=== PATIENT | female | born 1990 ===

== ENCOUNTER 2020-07-23 13:00 | Outpatient (RCR) | payer MEDICAID, SELFPAY | END 2020-10-03 08:57 | disposition other institution (70) | LOC: HO.PT 13:00 | PROVIDERS: PCP Family Medicine; Visit Provider Family Medicine | DX: M25.561 Pain in right knee (principal) | CPT/HCPCS: 97110; 97162; 97530 ==

== ENCOUNTER → 2021-03-10 11:38 | Outpatient (BNVA) | payer MEDICAID, SELFPAY | PROVIDERS: Visit Provider Student in an Organized Health Care Education/Training Program | DX: M79.7 Fibromyalgia (principal) | CPT/HCPCS: 99212 ==

== ENCOUNTER 2022-08-17 10:57 | Outpatient (REF) | payer MEDICAID, SELFPAY ==
--- NOTE | ~2022-08-17 | MM_ITS ---
EXAMINATION: MM DIAGNOSTIC DIGITAL BREAST TOMOSYNTHESIS, BILATERAL US DIAGNOSTIC ULTRASOUND BREAST (AXILLA), BILATERAL CLINICAL INFORMATION: 32-year-old with recent swelling/tenderness right axilla, subsequently resolved. No palpable mass or discharge. Chronic history fibromyalgia under medical care. No prior breast imaging. The lifetime risk of breast cancer based on the Tyrer-Cuzick Model is 15%. COMPARISON: None (current study represents initial baseline exam). TECHNIQUE: Digital breast tomosynthesis is performed in both the craniocaudal and mediolateral oblique views along with computer-aided detection (CAD). Synthesized 2D images are generated from the tomosynthesis. Additional right MLO view is provided. Ultrasound bilateral axilla are and posterior upper outer breasts is performed using grayscale imaging and color Doppler without and with harmonics. FINDINGS: There are scattered areas of fibroglandular density (ACR BI-RADS breast composition Category b). There are no significant masses, abnormal calcifications, or other abnormalities. The axillary nodes appear symmetric. There is no skin thickening or coarsening of the Juan's ligaments. Ultrasound left axilla demonstrates scattered nodes with normal obsaldo architecture and osbaldo color flow pattern. Cortical thickness is borderline prominent, up to 4 mm thickness. No cystic nodes. No solid mass or architectural abnormality. No skin thickening or edema tracking in soft tissue planes. Ultrasound right axilla demonstrates scattered nodes with normal osbaldo architecture and osbaldo color flow pattern. Cortical thickness is borderline prominent, up to 6 mm thickness. No cystic nodes. No solid mass or architectural abnormality. No skin thickening or edema tracking in soft tissue planes. Results are discussed with the patient at time of visit. Unremarkable bilateral breasts. There is mild bilateral osbaldo hyperplasia, likely related to the patient's chronic fibromyalgia, under medical therapy. No focal suspicious node wanting tissue sampling at this time. MM/MM tomosynthesis diagnostic BI IMPRESSION: 1. No mammographic evidence of malignancy or inflammatory changes. 2. Mild bilateral axillary osbaldo hyperplasia, likely related to patient's chronic fibromyalgia, under medical therapy. No focal suspicious node. ASSESSMENT: BI-RADS 2: Benign RECOMMENDATION: 1. Patient should be managed and followed up as needed based on the clinical impression. If clinically indicated, the axillary nodes could be reassessed with ultrasound to confirm stability. 2. Otherwise, routine annual screening mammography, beginning age 40, or earlier as clinical risk factors warrant. This patient's information was entered into a reminder system with a target due date for their next mammogram.
== END 2022-08-17 10:58 | disposition home or self-care (01) ==
LOC: HO.MAMMO 10:57
PROVIDERS: PCP Family Medicine; Visit Provider Registered Nurse
DX: R22.31 Localized swelling, mass and lump, right upper limb (principal)
CPT/HCPCS: 76642; 77062; 77066

== ENCOUNTER 2023-03-04 15:50 | Outpatient (REF) | payer MEDICAID, SELFPAY ==
--- NOTE | ~2023-03-04 | XR_ITS ---
EXAMINATION: XR ANKLE, LEFT CLINICAL INFORMATION: Fall down stairs with pain COMPARISON: None available. TECHNIQUE: AP, lateral, and mortise views of the left ankle. FINDINGS: No fracture. Alignment is anatomic. No erosions. Joint spaces are maintained. Soft tissues are prominent laterally. XR/XR ankle LT min 3V IMPRESSION: No fracture seen on the left
--- NOTE | ~2023-03-04 | XR_ITS ---
EXAMINATION: XR ANKLE, RIGHT CLINICAL INFORMATION: Fell down the stairs with an pain COMPARISON: None available. TECHNIQUE: AP, lateral, and mortise views of the right ankle. FINDINGS: No fracture. Alignment is anatomic. No erosions. Joint spaces are maintained. Soft tissues are prominent laterally XR/XR ankle RT min 3V IMPRESSION: No fracture seen on the right
== END 2023-03-04 15:51 | disposition home or self-care (01) ==
LOC: HO.HHCX 15:50
PROVIDERS: Visit Provider Internal Medicine
DX: M25.571 Pain in right ankle and joints of right foot (principal); M25.572 Pain in left ankle and joints of left foot
CPT/HCPCS: 73610

== ENCOUNTER 2023-04-05 11:01 | Outpatient (AMB) | payer MEDICAID, SELFPAY ==
--- NOTE | 2023-04-05 11:03 | A.OFFVIS_ITS ---
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 Patient reports she fell on 03/04/23. She states that her right ankle is worse than the left. Pain is worse when walking and using the stairs per patient. She states that her pain is on the lateral aspect of the right ankle and the pain radiates up to her mid calf. Also her left ankle her pain is on the lateral aspect of the left ankle and it moves to the top of her foot. 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 The patient reports in 02/2023 she fell down some stairs. The right ankle is worse then the left ankle. She states the pain starts on the lateral aspect of the right ankle and radiates up to her mid calf. She states the left ankle pain radiates to her left foot. She claims to have an increase in pain with ambulating and with the use of stairs. She states she is unable to get her foot into shoes at this time. She states her mother is going to take her to get supportive sneakers. [facility] Social History (Updated 03/10/21 @ 11:53 by Antione Ho LPN) Alcohol intake: never Patient Tobacco Use Status: Never used Tobacco e-Cigarette/Vaping Use: Never Used Review of Systems Const All systems reviewed & are unremarkable except as noted in HPI and below Physical Exam Const General: cooperative and no acute distress Orientation/consciousness: patient oriented x3 Resp Effort & Inspection: normal respiratory effort and able to speak in complete sentences Cardio Peripheral pulses: Peripheral pulses 2+ throughout Skin General skin exam: no rashes or lesions noted Neuro General: patient oriented x3 Extrem Other: Bilateral ankles: Tenderness to palpation over the peroneal tendons. Difficulty with eversion due to pain. No tenderness over the ATFL or deltoid. Sensation intact. Pedal pulse intact. NVI. Assessment & Plan Assessment & Plan (1) Right ankle sprain: Code(s): S93.401A - Sprain of unspecified ligament of right ankle, initial encounter Qualifiers: Encounter type: initial encounter Involved ligament of ankle: unspecified ligament Qualified Code(s): S93.401A - Sprain of unspecified ligament of right ankle, initial encounter (2) Left ankle sprain: Code(s): S93.402A - Sprain of unspecified ligament of left ankle, initial encounter Qualifiers: Encounter type: initial encounter Involved ligament of ankle: unspecified ligament Qualified Code(s): S93.402A - Sprain of unspecified ligament of left ankle, initial encounter Plan is a 33-year-old female who presents in the office today, as a new patient, for an evaluation of bilateral ankle pain. The patient reports in 02/2023 she fell down some stairs. The right ankle is worse then the left ankle. She states the pain starts on the lateral aspect of the right ankle and radiates up to her mid calf. She states the left ankle pain radiates to her left foot. She claims to have an increase in pain with ambulating and with the use of stairs. She states she is unable to get her foot into shoes at this time. She states her mother is going to take her to get supportive sneakers. The patient will be referred to physical therapy to work on ROM and strengthening of the bilateral ankles. I discussed the patient wearing supportive sneakers. I also discussed the role of ankle bracing, however due to the irritation and edema we have agreed to not use this at this time. I will se nd in a prescription for Dicolfenac 75 mg PO BID PRN to the pharmacy. I educated her to rest, ice, and elevate as much as possible off the bilateral ankles. Follow up will be in 6 weeks, or sooner if needed. X-rays of the bilateral ankles, obtained on 03/04/2023, revealed: Right: No fracture seen on the right Left: No fracture seen on the left Orders: Orders PT Evaluation and Treatment Today S93.401A - Sprain of unspecified ligament of right ankle, initial encounter, S93.402A - Sprain of unspecified ligament of left ankle, initial encounter Medications: New diclofenac sodium 75 mg PO BID PRN 60 tabs 0RF pain 30 days Patient Instructions: Scribed for Erin Mckeon PA-C by Isabelle Morgan medical detailist, on 04/05/2023 at 11:11 am, EST. Coding Level of Care Code New Pt Level 3 (33774) Diagnoses Sprain of right ankle, unspecified ligament, initial encounter S93.401A Encounter type: initial encounter Involved ligament of ankle: unspecified ligament Sprain of left ankle, unspecified ligament, initial encounter S93.402A Encounter type: initial encounter Involved ligament of ankle: unspecified ligament
== END 2023-04-05 11:48 | disposition home or self-care (01) ==
PROVIDERS: PCP Family Medicine; Visit Provider Physician Assistant
DX: S93.401A Sprain of unspecified ligament of right ankle, initial encounter (principal); S93.402A Sprain of unspecified ligament of left ankle, initial encounter
CPT/HCPCS: 99203

== ENCOUNTER → 2023-04-05 11:01 | Outpatient (BNVA) | payer MEDICAID, SELFPAY | PROVIDERS: PCP Family Medicine; Visit Provider Physician Assistant | DX: S93.401A Sprain of unspecified ligament of right ankle, initial encounter (principal); S93.402A Sprain of unspecified ligament of left ankle, initial encounter | CPT/HCPCS: 99212 ==

== ENCOUNTER 2023-05-25 09:00 | Outpatient (RCR) | payer MEDICAID, SELFPAY ==
--- NOTE | 2023-04-26 11:33 | MHC.PT.EP ---
[facility] [place] [facility] [place] [facility] [place] Office [address] Luis Enrique Espinosa [address] [phone] F: [phone] F: [phone] F: [phone] F: [phone] Physical Therapy Plan of Care Date of Evaluation: 04/26/23 Date of Surgery: Diagnosis: BILATERAL ANKLE PAIN S/P FALL 03/04/23 Assessment: 33 YO FEMALE REF TO PT WITH Rt> Lt ANKLE SPRAINS S/P FALLING DOWN 4 STAIRS ON 03/04/23. HER X-RAYS WERE (-). THE Pt NOTES A H/O FIBROMYALGIA. SHE RESIDES W HER CHILDREN IN A 3RD FLOOR APT AND CURRENTLY LEADS A SEDENTARY LIFESTYLE DUE TO HER ANKLE PAIN. OBJECTIVELY: (+) GENU VALGUS W PRONATION, DECR LUMBOPELVIC/ PROX LEs STRENGTH, DECR ROM [place] ANKLE DF/PF, AND TTP Lt MED ANKLE AND Rt MED AND LAT ANKLE. FUNCTIONALLY, SHE NOTES SHE IS LIMITED IN STANDING, IN/OOB BED OR TUB, SHE HAS BEEN UNABLE TO WALK HER CHILDREN TO SCHOOL, SXS WHILE REPOSITIONING IN BED, AND LIMITED STAIR NAVIGATION DUE TO [place] ANKLE PAIN. THE Pt WOLD BENEFIT FROM PT TO ADDRESS THE ABOVE FINDINGS, INCR HER ACTIVITY [place]/ FUNCT MOB, AND DEV A HEP/SX MGMT TECHN. Frequency and Duration: The patient will be seen 2 x WK x 5 WKS Short Term Goals: *DECR [place] ANKLE PAIN TO 3-4/10 *IMPROVE AROM [place] ANKLES *INITIATE HEP, FLEXIB, STAB, STRENGTH Applied Behavior Science Specialist Goals: *Pt INDEP AND COMPLIANT W FITNESS ROUTINE/ WALKING/ HEP *Pt RESUME REG ADLs EVIDENT W IMPROVED LEFI SCORE ( 13/80 AT EVAL) *Pt'S STRENGTH IN [place] LEs IMPROVED BY 1/2 - 1 GRADE Treatment Plan: Modalities to reduce pain, spasms and effusion. Manual therapy to restore motion and function. Therapeutic exercise to improve strength and flexibility. Neuromuscular re-education for posture and balance. Therapeutic activities to return to functional activities of daily living. Electronically signed by: ISABEL CORONA,PT Please sign and return to therapist. Thank you for your referral.
== END 2023-05-30 10:05 | disposition home or self-care (01) ==
LOC: HO.PT 09:00
PROVIDERS: Absent Provider Family Medicine; PCP Family Medicine; Visit Provider Physician Assistant
DX: S93.402A Sprain of unspecified ligament of left ankle, initial encounter (principal); S93.401A Sprain of unspecified ligament of right ankle, initial encounter
CPT/HCPCS: 97110; 97140; 97162; 97530

== ENCOUNTER 2023-11-29 12:16 | Outpatient (REF) | payer MEDICAID, SELFPAY ==
--- NOTE | ~2023-11-29 | XR_ITS ---
EXAMINATION: XR KNEE, LEFT CLINICAL INFORMATION: Knee pain Patient states bilateral knee pain in both knees give out COMPARISON: Same-day right knee TECHNIQUE: Four views of the left knee. FINDINGS: No fracture or joint effusion. Alignment is anatomic. Joint spaces are maintained. No abnormal soft tissue calcification. XR/XR knee LT 3V IMPRESSION: No bony abnormality.
--- NOTE | ~2023-11-29 | XR_ITS ---
EXAMINATION: XR KNEE, RIGHT CLINICAL INFORMATION: Knee pain Patient states bilateral knee pain and both knees give out COMPARISON: Same-day left knee TECHNIQUE: 3 views of the right knee. FINDINGS: No fracture or joint effusion. Alignment is anatomic. Joint spaces are maintained. No abnormal soft tissue calcification. XR/XR knee RT 3V IMPRESSION: No bony abnormality.
== END 2023-11-29 12:17 | disposition home or self-care (01) ==
LOC: HO.HHCX 12:16
PROVIDERS: Visit Provider General Practice
DX: M25.561 Pain in right knee (principal); M25.562 Pain in left knee; G89.29 Other chronic pain
CPT/HCPCS: 73562

== ENCOUNTER 2023-11-29 14:30 | Outpatient (REF) | payer MEDICAID, SELFPAY ==
[2023-11-29 16:44] LABS: Estimated Average Glucose 114 mg/dL; Hemoglobin A1c % 5.6 % (<6.0)
[2023-11-29 17:12] LABS: Erythrocyte Sedimentation Rate 23 MM/HR (0-20)
[2023-11-29 17:17] LABS: Alanine Aminotransferase 17 U/L (0-31); Albumin Level 4.3 g/dL (3.5-5.0); Alkaline Phosphatase 82 U/L (39-117); Anion Gap 14 (12-20); Aspartate Amino Transferase 15 U/L (5-31); Bilirubin Total 0.6 mg/dL (0.0-1.0); Blood Urea Nitrogen 15 mg/dL (9-16); C Reactive Protein 0.58 mg/dL (< or = 0.50); Calcium 9.1 mg/dL (8.4-10.2); Carbon Dioxide 25 mmol/L (22-29); Chloride 104 mmol/L (96-108); Cholesterol 162 mg/dL (<200); Estimated Glomerular Filt Rate > 60; Glucose Random 81 mg/dL (60-115); HDL Cholesterol 44 mg/dL (>40); LDL Cholesterol Calculated 72 mg/dL (<100); Potassium 4.2 mmol/L (3.3-5.1); Sodium 139 mmol/L (135-145); Total Protein 8.4 g/dL (6.5-8.0); Triglycerides 234 mg/dL (<150)
== END 2023-11-29 14:31 | disposition home or self-care (01) ==
LOC: HO.HHCL 14:30
PROVIDERS: Visit Provider General Practice
DX: I10 Essential (primary) hypertension (principal); M25.561 Pain in right knee; M25.562 Pain in left knee; G89.29 Other chronic pain
CPT/HCPCS: 36415; 73562; 80053; 80061; 83036; 85652; 86140

== ENCOUNTER 2023-12-07 17:53 | Emergency (ER) | payer MEDICAID, SELFPAY ==
[2023-12-07 18:58] VITALS: BP 112/78; PULSE 92; RESP 16; TEMP 36.9; O2SAT 97; BMI 47.2
--- NOTE | 2023-12-07 19:09 | ED.GENADULT ---
HPI - General Adult General Chief complaint: Extremity Injury, Lower Stated complaint: fell and felt snap in lower calf Time Seen by Provider: 12/07/23 19:08 Source: patient Mode of arrival: ambulatory Limitations: no limitations History of Present Illness HPI narrative: Patient is a 33-year-old female with history of fibromyalgia presenting to the emergency department with complaint of right calf pain which began while walking downstairs. States that she felt a pop sensation at the same time as the onset of her pain. States that she is having difficulty getting in and out of her apartment as she lives on the 3rd floor and there is no elevator access. Denies any numbness or tingling. Denies any chest pain or shortness of breath. Not on OCPs. MD complaint: calf pain Onset (ago): day(s) Location: right and lower extremity Radiation: non-radiation Severity: severe Quality: aching and other (cramping) Pain Consistency: colicky Relieving factors: rest Exacerbating factors: movement Associated symptoms: denies other symptoms Treatments prior to arrival: none Related Data Home Medications ?Medication ?Instructions ?Recorded ?Confirmed acetaminophen 500 mg capsule 500 mg PO Q6H PRN 03/10/21 03/10/21 atorvastatin 20 mg tablet 20 mg PO DAILY 03/10/21 03/10/21 cholecalciferol (vitamin D3) 25 25 mcg PO DAILY 03/10/21 03/10/21 mcg (1,000 unit) capsule cyclobenzaprine 10 mg tablet 10 mg PO BEDTIME 03/10/21 03/10/21 metformin 500 mg tablet 500 mg PO DAILY 03/10/21 03/10/21 omeprazole 20 mg capsule,delayed 20 mg PO DAILY 03/10/21 03/10/21 release sertraline 100 mg tablet (Zoloft) 100 mg PO DAILY 03/10/21 03/10/21 sertraline 50 mg tablet (Zoloft) 50 mg PO DAILY 03/10/21 03/10/21 trazodone 50 mg tablet 50 mg PO BEDTIME 03/10/21 03/10/21 Previous Rx's ?Medication ?Instructions ?Recorded gabapentin 300 mg capsule 300 mg PO BEDTIME #30 caps 03/10/21 diclofenac sodium 75 mg 75 mg PO BID PRN for pain #60 tabs 11/24/23 tablet,delayed release ibuprofen 600 mg tablet 600 mg PO Q8H PRN pain #20 tabs 12/07/23 lidocaine 5 % topical patch 1 patch topical DAILY #15 ea 12/07/23 Allergies Allergy/AdvReac Type Severity Reaction Status Date / Time No Known Allergies Allergy Verified 12/07/23 18:59 [No Known Allergies*] Review of Systems Review of Systems: As per HPI. Yes all other systems are reviewed and are negative Constitutional: Constitutional: Reports as per HPI [facility] Social History Social History (Updated 03/10/21 @ 11:53 by Antione Ho LPN) Alcohol intake: never Patient Tobacco Use Status: Never used Tobacco e-Cigarette/Vaping Use: Never Used Advance Directives: No Advance Directives Information Provided: No Physical Exam ED Vital Signs: Vital Signs - 24 hr 12/07/23 18:58 Temperature 98.5 F Pulse Rate 92 Respiratory Rate 16 Blood Pressure 112/78 Pulse Oximetry 97 Oxygen Delivery Method Room Air BMI result Body Mass Index 47.2 Vital signs have been reviewed and appear to be correct. Blood pressure normal. Heart rate normal. Respiratory rate normal. Temperature normal. Oxygen saturation normal. Const General: cooperative, healthy appearing and no acute distress Orientation/consciousness: oriented to person, oriented to place, oriented to time and patient oriented x3 Limitations: no limitations HENNJ Head: Yes normocephalic and Yes atraumatic Ears: external ears normal General nose exam: Normal external nose present Face and sinus: Yes face symmetric Mouth: oropharynx normal and moist mucous membranes Throat: Yes uvula midline Eyes Pupils: Equal, round and reactive pupils present Neck Neck: Yes normal visual inspection and Yes supple Resp Effort & Inspection: normal respiratory effort and able to speak in complete sentences Auscultation: clear to auscultation bilaterally Cardio Rate: regular rate Rhythm: regular rhythm Heart sounds: S1 normal heart sound present and S2 normal heart sound present GI Palpation (GI): Soft to palpation and nontender Auscultation: normoactive bowel sounds General: Yes no CVA tenderness Back/Spine/Pelvis Back: no CVA tenderness Skin General skin exam: elasticity normal and turgor normal Neuro General: oriented to person, oriented to place, oriented to time, patient oriented x3, moves all extremities, no focal motor deficits and CN's II-XI intact bilaterally Cranial nerves: Yes Equal, round and reactive pupils present Cognition (Neuro): normal cognition Extrem General: Yes full ROM, Yes capillary refill normal, Yes normal exam except as noted, Yes no pedal edema and Yes no calf tenderness Right lower extremity: lower leg (neg Collado, increased pain with plantar and dorsiflexion) Details: normal to inspection, tenderness Location: of the posterior calf and no edema; no erythema, no localized swelling and no ecchymosis and foot Details: vascular exam Details: dorsalis pedis pulse present and posterior tibial pulse present Psych Mental Status: mental status grossly normal Affect: normal affect Thought process: Normal thought process present Medical Decision Making Medical Decision Making MDM Narrative: Patient is a 33-year-old female with history of fibromyalgia presenting to the emergency department with complaint of right calf pain which began while walking downstairs. On exam patient is awake, A+Ox3, VS WNL, afebrile, normal neurological exam without focal deficits, physical exam findings as above. Given reported symptoms and physical exam findings, initial differential includes gastrocnemius strain, achilles tendonitis. Do not suspect DVT. Given the patient is able to bear weight, do not suspect complete tear. Patient provided with Kendrick wrap in the emergency department and advised to keep leg elevated while at rest, alternate Tylenol and ibuprofen. Will send prescription for topical lidocaine patches. Will refer patient to orthopedics for any ongoing symptoms. Return precautions discussed. Patient verbalized understanding of and agreement with plan. Differential Diagnosis Differential Diagnoses: The differential diagnosis associated with the presentation includes As per MDM. External Record Review External record reviewed: Inpatient record, Office record and Outpatient record Prescription Management I considered prescription management with: Pain Medication Discharge Plan Discharge Clinical Impression: Gastrocnemius strain Qualifiers: Encounter type: initial encounter Laterality: right Qualified Code(s): S86.111A - Strain of other muscle(s) and tendon(s) of posterior muscle group at lower leg level, right leg, initial encounter Patient Disposition: Home, Self-Care Instructions: Muscle Strain (DC), How to Use an Elastic Bandage (ED), R.I.C.E. Treatment (ED) Additional Instructions: You have been evaluated in the emergency department today for right lower leg pain. Your evaluation did not find evidence of medical conditions requiring emergent intervention at this time. We have provided an KENDRICK wrap for you to use while your leg heals. Please rest, ice, and elevate your leg, and resume normal activities as tolerated. We recommend you take 600mg ibuprofen every 6 hours or 650mg Tylenol every 6 hours as needed for pain. If needed you can alternate these medications and take 1 medication every 3 hours. For instance at noon take ibuprofen, then at 3:00 p.m. take Tylenol, then at 6:00 p.m. take ibuprofen. Please schedule an appointment for follow-up with your primary care provider this week. Return to the emergency department if you experience worsening pain, numbness, tingling, change of color in your leg or foot, or any other concerning symptoms. Prescriptions: New ibuprofen 600 mg tablet 600 mg PO Q8H PRN (Reason: pain) Qty: 20 0RF lidocaine 5 % adhesive patch,medicated 1 patch topical DAILY Qty: 15 0RF Rx Instructions: leave on most painful area for up to 12 hrs No Action diclofenac sodium 75 mg tablet,delayed release (DR/EC) 75 mg PO BID PRN (Reason: for pain) Qty: 60 0RF trazodone 50 mg tablet 50 mg PO BEDTIME cyclobenzaprine 10 mg tablet 10 mg PO BEDTIME sertraline [Zoloft] 50 mg tablet 50 mg PO DAILY sertraline [Zoloft] 100 mg tablet 100 mg PO DAILY acetaminophen 500 mg capsule 500 mg PO Q6H PRN metformin 500 mg tablet 500 mg PO DAILY cholecalciferol (vitamin D3) 25 mcg (1,000 unit) capsule 25 mcg PO DAILY atorvastatin 20 mg tablet 20 mg PO DAILY omeprazole 20 mg capsule,delayed release(DR/EC) 20 mg PO DAILY gabapentin 300 mg capsule 300 mg PO BEDTIME Qty: 30 3RF Referrals: [facility] [Provider Group] Print Language: Croatian
--- NOTE | 2023-12-07 19:25 | PC.NURSE ---
zana wrap applied per provider request
[2023-12-07 19:48] VITALS: BP 112/78; PULSE 92; RESP 16; TEMP 36.9; O2SAT 97
== END 2023-12-07 19:49 | disposition home or self-care (01) ==
PROVIDERS: Emergency Provider Internal Medicine; PCP Family Medicine
DX: S86.911A Strain of unspecified muscle(s) and tendon(s) at lower leg level, right leg, initial encounter (principal); X58.XXXA Exposure to other specified factors, initial encounter; Y93.9 Activity, unspecified; Y92.9 Unspecified place or not applicable; Y99.9 Unspecified external cause status; M79.661 Pain in right lower leg
CPT/HCPCS: 99282; 99283

== ENCOUNTER 2024-01-05 09:08 | Outpatient (REF) | payer MEDICAID, SELFPAY ==
--- NOTE | ~2024-01-05 | XR_ITS ---
EXAMINATION: XR ANKLE, RIGHT CLINICAL INFORMATION: Ankle pain COMPARISON: Right ankle radiographs 03/04/2023. TECHNIQUE: AP, lateral, and mortise views of the right ankle. FINDINGS: No evidence of acute fracture or malalignment. Ankle mortise is congruent. Talar dome is intact. Redemonstrated mild proliferative change at the medial and lateral malleoli, may be sequela of remote ligamentous injury.. No tibiotalar joint effusion. Soft tissues are unremarkable. XR/XR ankle RT min 3V IMPRESSION: No evidence of acute fracture or malalignment of the right ankle.
== END 2024-01-05 09:09 | disposition home or self-care (01) ==
LOC: HO.HOSX 09:08
PROVIDERS: Visit Provider Physician Assistant
DX: S86.111A Strain of other muscle(s) and tendon(s) of posterior muscle group at lower leg level, right leg, initial encounter (principal)
CPT/HCPCS: 73610; 99212

== ENCOUNTER 2024-01-05 11:37 | Outpatient (AMB) | payer MEDICAID, SELFPAY ==
--- NOTE | 2024-01-05 11:46 | MHC.OFFVIS ---
Intake Visit Reasons: N/prob rt achilles tendon partial tear Intake Note: Carole is a 33 year old female who presents today for a evaluation of her right calf pain, DOI 12/07/23. She states having a history of fibromyalgia. She presented to the emergency department with pain of right calf pain which began when she downstairs. States that she feels a little bit better. Still having pain behind her calf. Allergies No Known Allergies [No Known Allergies*] Allergy (Verified 01/05/24 11:55) HPI HPI N/prob rt achilles tendon partial tear: Details: 33-year-old female who presents in the office today for an evaluation of right calf pain. The patient presented to the ED on 12/07/2023 with a complaint of a pop sensation accompanied by pain that began when ambulating downstairs. She was placed in an COLLEEN wrap and advised to elevate the right lower extremity. She was prescribed Lidocaine patches topical daily and ibuprofen 600 mg PO Q8H PRN. Patient lives on the third floor with no elevator access. While in the office today the patient confirms presenting to the ED with pain in the right calf which began as she was descending stairs. She states she feels a little better but is still having pain behind the calf. Patient has a significant medical history of fibromyalgia. [facility] Social History (Updated 01/05/24 @ 11:56 by Garrett Ovalles) Alcohol intake: never Patient Tobacco Use Status: Never used Tobacco e-Cigarette/Vaping Use: Never Used Use of substances other than those prescribed or required for medical reasons: No Review of Systems Const All systems reviewed & are unremarkable except as noted in HPI and below Physical Exam Const General: cooperative and no acute distress Orientation/consciousness: patient oriented x3 Resp Effort & Inspection: normal respiratory effort and able to speak in complete sentences Cardio Peripheral pulses: Peripheral pulses 2+ throughout Skin General skin exam: no rashes or lesions noted Neuro General: patient oriented x3 Extrem Other: Right lower extremity: Able to dorsiflex and plantarflex. Mild tenderness with calf squeeze. Achilles tendon is intact and functioning appropriately. NVI. Assessment & Plan Assessment & Plan (1) Strain of right gastrocnemius muscle: Code(s): S86.111A - Strain of other muscle(s) and tendon(s) of posterior muscle group at lower leg level, right leg, initial encounter Category: Medical Plan is a 3-year-old female who presents in the office today for an evaluation of right calf pain. The patient presented to the ED on 12/07/2023 with a complaint of a pop sensation accompanied by pain that began when ambulating downstairs. She was placed in an COLLEEN wrap and advised to elevate the right lower extremity. She was prescribed Lidocaine patches topical daily and ibuprofen 600 mg PO Q8H PRN. Patient lives on the third floor with no elevator access. While in the office today the patient confirms presenting to the ED with pain in the right calf which began as she was descending stairs. She states she feels a little better but is still having pain behind the calf. Patient has a significant medical history of fibromyalgia. I offered the patient physical therapy, but she would like to hold off at this time. I instructed her that if she should continue to have pain difficulties with ROM or develop any stiffness, she should contact the office. At that time an order for formal physical therapy will be placed. I expressed that she should not wait longer than four weeks before making the call. Follow-up will be PRN, or sooner if needed. X-rays of the right ankle which were obtained while in the office today and were reviewed by me, Erin Mckeon PA-C, revealed no acute fractures or dislocations. Orders: Orders XR ankle RT min 3V Today M25.579 - Pain in unspecified ankle and joints of unspecified foot Patient Instructions: Scribed by Isabelle Morgan medical office representative, for Erin Mckeon PA-C on 01/05/2024 at 12:11 pm, EST. Coding Level of Care Code Est Pt Level 3 (82406) Diagnoses Strain of right gastrocnemius muscle S86.111A
== END 2024-01-05 12:11 | disposition home or self-care (01) ==
PROVIDERS: PCP Family Medicine; Visit Provider Physician Assistant
DX: S86.111A Strain of other muscle(s) and tendon(s) of posterior muscle group at lower leg level, right leg, initial encounter (principal)
CPT/HCPCS: 99213

== ENCOUNTER 2024-02-02 09:44 | Outpatient (REF) | payer MEDICAID, SELFPAY ==
[2024-02-02 11:57] LABS: Estimated Average Glucose 120 mg/dL; Hemoglobin A1c % 5.8 % (<6.0)
[2024-02-02 12:09] LABS: Rheumatoid Factor < 13.0 IU/mL (<15.0)
[2024-02-02 12:15] LABS: Alanine Aminotransferase 20 U/L (0-31); Albumin Level 4.3 g/dL (3.5-5.0); Alkaline Phosphatase 88 U/L (39-117); Anion Gap 13 (12-20); Aspartate Amino Transferase 15 U/L (5-31); Bilirubin Direct 0.2 mg/dL (0.0-0.5); Blood Urea Nitrogen 14 mg/dL (9-16); C Reactive Protein 0.42 mg/dL (< or = 0.50); Calcium 9.2 mg/dL (8.4-10.2); Carbon Dioxide 24 mmol/L (22-29); Chloride 105 mmol/L (96-108); Cholesterol 150 mg/dL (<200); Estimated Glomerular Filt Rate 55; Glucose Random 169 mg/dL (60-115); HDL Cholesterol 38 mg/dL (>40); LDL Cholesterol Calculated 56 mg/dL (<100); Potassium 3.9 mmol/L (3.3-5.1); Sodium 138 mmol/L (135-145); Total Protein 7.9 g/dL (6.5-8.0); Triglycerides 280 mg/dL (<150)
[2024-02-02 12:26] LABS: Erythrocyte Sedimentation Rate 18 MM/HR (0-20)
[2024-02-03 13:33] LABS: Anti DNA DS Antibody 7 IU/mL
[2024-02-09 14:33] LABS: Anti Nuclear Antibody Screen NEGATIVE (NEGATIVE)
== END 2024-02-02 09:45 | disposition home or self-care (01) ==
LOC: HO.HHCL 09:44
PROVIDERS: Visit Provider Family Medicine
DX: M79.10 Myalgia, unspecified site (principal); E11.9 Type 2 diabetes mellitus without complications
CPT/HCPCS: 36415; 80048; 80061; 80076; 83036; 85652; 86038; 86140; 86225; 86431

== ENCOUNTER 2024-02-02 11:41 | Outpatient (REF) | payer MEDICAID, SELFPAY ==
[2024-02-02 14:37] LABS: Microalbum/Creatinine Ratio Ur 51.2 ug/mg cr (<30)
== END 2024-02-02 11:42 | disposition home or self-care (01) ==
LOC: HO.HHCL 11:41
PROVIDERS: Visit Provider Family Medicine
DX: M79.10 Myalgia, unspecified site (principal)
CPT/HCPCS: 36415; 80048; 80061; 80076; 82043; 82570; 83036; 85652; 86038; 86140; 86225; 86431

== ENCOUNTER 2024-04-09 13:31 | Outpatient (REF) | payer MEDICAID, SELFPAY ==
[2024-04-09 16:25] LABS: C Reactive Protein 1.04 mg/dL (< or = 0.50)
[2024-04-09 16:42] LABS: Creatinine Urine 191.67 mg/dL; Vitamin D 25-OH Total 34.9 ng/mL (>30)
[2024-04-09 17:22] LABS: Erythrocyte Sedimentation Rate 26 MM/HR (0-20)
[2024-04-10 20:42] LABS: Anti DNA DS Antibody 9 IU/mL
== END 2024-04-09 13:32 | disposition home or self-care (01) ==
LOC: HO.HHCL 13:31
PROVIDERS: Visit Provider Family Medicine
DX: R76.8 Other specified abnormal immunological findings in serum (principal); R80.9 Proteinuria, unspecified; E55.9 Vitamin D deficiency, unspecified
CPT/HCPCS: 36415; 82043; 82306; 82570; 85652; 86140; 86225

== ENCOUNTER 2024-04-20 17:14 | Outpatient (REF) | payer MEDICAID, SELFPAY ==
[2024-04-24 03:54] LABS: C. trachomatis RNA TMA NOT DETECTED (NOT DETECTED); N. gonorrhoeae RNA TMA NOT DETECTED (NOT DETECTED); Trichomonas (NAAT) NOT DETECTED (NOT DETECTED)
[2024-05-02 13:24] LABS: HPV mRNA E6/E7 Not Detected; Thin Prep Source Cervix
[2024-05-02 13:25] LABS: Previous Biopsy Date NONE GIVEN
== END 2024-04-20 17:15 | disposition home or self-care (01) ==
LOC: HO.HHCLNP 17:14
PROVIDERS: Visit Provider Family Medicine
DX: Z12.4 Encounter for screening for malignant neoplasm of cervix (principal)
CPT/HCPCS: 36415; 87491; 87591; 87624; 87661; 88175

== ENCOUNTER 2024-06-08 08:02 | Outpatient (AMB) | payer MEDICAID, SELFPAY ==
[2024-06-08 08:07] VITALS: BP 114/70; PULSE 96; O2SAT 99; BMI 46.6
--- NOTE | 2024-06-08 08:07 | MHC.OFFVIS ---
Vital Signs 06/08/24 08:07 Height 5 ft 2 in Weight 255 lb 1.197 oz BMI 46.6 BP 114/70 Blood Pressure Location Lt brachial Position Sitting Pulse 96 Pulse Source Pulse Oximeter Pulse Oximetry (%) 99 Oxygen Delivery Method Room Air Intake Visit Reasons: Abnormal lab/cm Intake Note: Patient presents today for abnormal lab work, she was referred by her PCP, Celina Mirza Allergies No Known Allergies [No Known Allergies*] Allergy (Verified 06/08/24 08:08) HPI Comments Details: Patient is a 34-year-old female with diabetes, hypertension, hyperlipidemia, obesity on Ozempic who is here to reestablish care for management of fibromyalgia Patient was initially seen back in 2020 for evaluation of polyarthralgias in the setting of a positive double-stranded DNA. Exam at that time was consistent with fibromyalgia. Patient notes that she has actually been diagnosed with fibromyalgia since 2007. Since then she has been maintained on a cocktail of pregabalin and duloxetine. However over the years she has noticed worsening of her pain to the point where she feels like she can not take care of her 3 young children. And she is here today for management. Denies rashes, photosensitivity, alopecia, oral/nasal ulcers, sicca symptoms, lymphadenopathy, chest pain/shortness of breath, inflammatory type joint pain, foamy urine, lower extremity edema, muscle weakness, Raynaud's Also denies history of seizure, CVA, psychosis, history of kidney problems, history of cytopenias, history of VTE including PE or DVTs OB History: No history of recurrent miscarriages [facility] Social History (Updated 01/05/24 @ 11:56 by Garrett Ovalles) Alcohol intake: never Patient Tobacco Use Status: Never used Tobacco e-Cigarette/Vaping Use: Never Used Review of Systems Const Details: Review of Systems Constitutional: Denies fever, chills, weight loss ENT: Denies vision changes, eye pain or eye redness, dental caries, dry mouth GI: Denies nausea, vomiting, diarrhea, abdominal pain, change in BM Pulm: Denies SOB, ARANA, hemoptysis, wheezing Cards: Denies chest pain, palpitations Skin: Denies Raynaud's, rash, nail changes, photosensitivity, MARKETING SERVICES MANAGER: Denies headaches, weakness, paresthesias, recurrent falls MSK: as per HPI All other systems reviewed and are unremarkable except noted above Physical Exam Vital Signs: Last Vital Signs Pulse 96 06/08/24 08:07 BP 114/70 06/08/24 08:07 Pulse Ox 99 06/08/24 08:07 Oxygen Delivery Method Room Air 06/08/24 08:07 BMI result Body Mass Index 46.6 Physical Examination CONSTITUITIONAL Patient alert and cooperative. Well appearing and in no apparent painful distress HEENT Conjunctiva and sclera clear. ?Pupils equal round and reactive to light. ?No lymphadenopathy. ?Normal dentition. No oral or nasal ulcers noted. No evidence of discoid rash to the thuy of ears CHEST/RESPIRATORY SYSTEM Normal respiratory effort and able to speak in complete sentences. ?Clear to auscultation bilaterally. ?No crackles, rales, rhonchi, wheezes heard. CARDIAC SYSTEM Regular rate and rhythm. ?S1 and S2 heard no murmurs. ?Radial pulses intact bilaterally MSK Hands: ?Good outreach and education social worker strength bilaterally - 5/5. ?No deformities noted. ?No synovitis noted to the MCPs, PIPs or DIPs. ?No tenderness to palpation of these joints. Wrists: ?Full range of motion at the wrists without pain. ?No tenderness to palpation or synovitis noted to the wrists. Elbows: Full range of motion without pain. No tenderness, weakness, swelling, increased warmth or erythema. Shoulders: Full range of motion without pain. No tenderness, weakness, swelling, increased warmth or erythema. Hip bursa: Exquisite tenderness to palpation of bilateral hip bursa Knees: ?Full range of motion. ?No tenderness, swelling, increased warmth or erythema.?No effusion or crepitations Ankles: Full range of motion. ?No tenderness, swelling, increased warmth or erythema.? Feet: ?Negative squeeze test. ?No tenderness to palpation or swelling of the MTPs. Tender points:??Tenderness to palpation of bilateral trapezius, bilateral lower back, bilateral outer knees. SKIN Skin intact without rashes. Results Reviewed Results Reviewed: Laboratory Tests 02/02/24 04/09/24 09:50 13:33 ESR 26 H C-Reactive Protein 1.04 H Rheumatoid Factor < 13.0 LAVINIA Screen NEGATIVE Double Strand DNA Ab 9 H Assessment & Plan Assessment & Plan (1) Fibromyalgia: Code(s): M79.7 - Fibromyalgia Category: Medical Plan: #Fibromyalgia Pain management: Increase gabapentin to 225 mg twice a day, change duloxetine to milnacipran, add Celebrex 200 mg twice a day Exercise: Patient lives close to the [facility]. She has to go there at least twice a week in the pool since the children are in school now. Also recommended stretches in the evenings when she takes her warm showers. Also recommended 10-20 minutes of YouTube fibromyalgia stressors twice a day. Sleep: Encouraged good sleep hygiene. We will consider sleep apnea testing in the future Counseling: Counseled patient on the diagnosis of fibromyalgia all questions answered Plan I spent 45 minutes reviewing the record and labs, seeing the patient, discussing the treatment plan and documenting in the medical record Medications: New milnacipran 50 mg (2 x 25 mg) PO BID 360 tabs 0RF 90 days celecoxib (Celebrex) 200 mg PO BID 180 caps 1RF M79.7 - Fibromyalgia pregabalin 225 mg PO BID 180 caps 0RF 90 days M79.7 - Fibromyalgia Coding Level of Care Code New Pt Level 4 (97374) Complex EM visit Add On G2211 Diagnoses Fibromyalgia M79.7
== END 2024-06-08 09:21 | disposition home or self-care (01) ==
PROVIDERS: PCP Family Medicine; Visit Provider Student in an Organized Health Care Education/Training Program
DX: M79.7 Fibromyalgia (principal)
CPT/HCPCS: 99204

== ENCOUNTER → 2024-06-08 08:02 | Outpatient (BNVA) | payer MEDICAID, SELFPAY | PROVIDERS: PCP Family Medicine; Visit Provider Student in an Organized Health Care Education/Training Program | DX: M79.7 Fibromyalgia (principal) | CPT/HCPCS: 99202 ==

== ENCOUNTER 2024-06-10 08:59 | Outpatient (REF) | payer MEDICAID, SELFPAY ==
--- NOTE | ~2024-06-10 | MR_ITS ---
EXAMINATION: MR BRAIN WITHOUT CONTRAST CLINICAL INFORMATION: Worsening migraines. COMPARISON: CT head from 06/09/2012. TECHNIQUE: MRI of the brain was obtained using routine sequences without contrast. FINDINGS: No focal restricted diffusion is demonstrated to suggest acute or subacute cerebral ischemia. No evidence of acute or chronic hemorrhagic products on heme-sensitive imaging. Normal parenchymal signal characteristics. The ventricles are normal in morphology and size. No abnormal mass effect. No midline shift. Mild expansion of the sella turcica with partial flattening of the pituitary gland. The cerebellar tonsils are positioned at the level of the foramen magnum. Normal arterial and venous vascular flow voids are present. Normal, homogeneous marrow signal. Mild mucosal thickening of the paranasal sinuses. No signal abnormalities within the mastoids. MR/MR head/brain wo con IMPRESSION: 1. No acute intracranial abnormalities. 2. No MRI abnormalities to explain the patient's symptoms. Electronically signed by: Iglesia Polk DO 07/04/2024 06:51 AM DC
== END 2024-06-10 09:00 | disposition home or self-care (01) ==
LOC: HO.MRI 08:59
PROVIDERS: PCP Family Medicine; Visit Provider Family Medicine
DX: G43.709 Chronic migraine without aura, not intractable, without status migrainosus (principal)
CPT/HCPCS: 70551

== ENCOUNTER 2024-11-27 08:40 | Outpatient (REF) | payer MEDICAID, SELFPAY ==
[2024-11-27 11:26] LABS: MANUAL DIFF FLAG NO
[2024-11-27 11:35] LABS: Basophils Absolute Auto 0.1 X10*3/uL (0.0-0.2); Basophils Percent Auto 0.7 % (0-2); Eosinophils Absolute Auto 0.1 X10*3/uL (0.0-0.4); Eosinophils Percent Auto 1.6 % (0-4); Hematocrit 34.7 % (37.0-47.0); Imm Gran Abs Auto 0.02 X10*3/uL (0.00-0.03); Imm Gran Pct Auto 0.2 % (0.0-0.4); Lymphocytes Absolute Auto 2.5 X10*3/uL (1.2-4.9); Mean Corpuscular HGB Conc 31.7 g/dl (31.0-35.0); Mean Corpuscular Hemoglobin 25.9 pg (27.0-33.0); Mean Corpuscular Volume 81.6 fL (80.0-98.0); Mean Platelet Volume 11.3 fL (9.4-12.3); Monocytes Absolute Auto 0.4 X10*3/uL (0.1-1.2); Monocytes Percent Auto 5.3 % (2-11); Neutrophils Percent Auto 61.2 % (45-73); Platelet Count 366 X10*3/uL (160-400); Red Blood Count 4.25 X10*6/uL (4.20-5.50); Red Cell Distribution Width 16.6 % (11.0-16.0); White Blood Count 8.2 X10*3/uL (4.8-10.8)
[2024-11-27 14:15] LABS: Alanine Aminotransferase 8 U/L (0-31); Albumin Level 4.1 g/dL (3.5-5.0); Anion Gap 13 (12-20); Aspartate Amino Transferase 13 U/L (5-31); Bilirubin Total 0.5 mg/dL (0.0-1.0); Blood Urea Nitrogen 20 mg/dL (9-16); Calcium 8.9 mg/dL (8.4-10.2); Carbon Dioxide 21 mmol/L (22-29); Chloride 112 mmol/L (96-108); Estimated Glomerular Filt Rate 56; Glucose Random 105 mg/dL (60-115); Potassium 3.6 mmol/L (3.3-5.1); Sodium 142 mmol/L (135-145); Total Protein 7.6 g/dL (6.5-8.0)
[2024-11-27 18:04] LABS: Alkaline Phosphatase 65 U/L (39-117)
[2024-11-28 04:18] LABS: Syphilis Screen Nonreactive (Nonreactive)
[2024-11-28 04:25] LABS: HIV AB/AG Nonreactive (Nonreactive); HIV Num 1 0.08 S/CO (0.00-0.99)
== END 2024-11-27 08:41 | disposition home or self-care (01) ==
LOC: HO.HHCL 08:40
PROVIDERS: Family Medicine; Visit Provider Student in an Organized Health Care Education/Training Program
DX: Z11.4 Encounter for screening for human immunodeficiency virus [HIV] (principal); Z11.3 Encounter for screening for infections with a predominantly sexual mode of transmission; M79.7 Fibromyalgia
CPT/HCPCS: 36415; 80053; 85025; 86780; 87389

== ENCOUNTER 2024-12-03 08:00 | Outpatient (AMB) | payer MEDICAID, SELFPAY ==
--- NOTE | 2024-12-03 08:03 | A.OFFVIS_ITS ---
Vital Signs 12/03/24 08:09 Height 5 ft 2 in Weight 215 lb 13.321 oz BMI 39.5 BP 115/70 Blood Pressure Location Lt brachial Position Sitting Respiration 16 Pulse 99 Pulse Source Pulse Oximeter Pulse Oximetry (%) 98 Oxygen Delivery Method Room Air Intake Visit Reasons: follow up Intake Note: Patient presents for Fibromyalgia follow up. Allergies No Known Allergies [No Known Allergies*] Allergy (Verified 12/03/24 08:07) HPI Comments Details: Patient is a 34-year-old female with diabetes, hypertension, hyperlipidemia, obesity on Ozempic and fibromyalgia here today for follow up Interval History: Patient last seen 06/08/2024. At that time she was establishing care for the management of her fibromyalgia. At that visit there was no evidence of any underlying autoimmune or inflammatory condition. Her gabapentin was increased, her duloxetine was changed to milnacipran and Celebrex was added. We also discussed exercise and sleep hygiene Since that visit she had been having issues taking her medications as prescribed. Only started taking her medication about 1 month ago. Continues to have widespreas pain but noting that she does not feel like a truck has run her over anymore Has lost weight since the last visit: 250 -- > 215 Rheumatologic History: Initial History: Patient was initially seen back in 2020 for evaluation of polyarthralgias in the setting of a positive double-stranded DNA. Exam at that time was consistent with fibromyalgia. Patient notes that she has actually been diagnosed with fibromyalgia since 2007. Since then she has been maintained on a cocktail of pregabalin and duloxetine. However over the years she has noticed worsening of her pain to the point where she feels like she can not take care of her 3 young children. And she is here today for management. Denies rashes, photosensitivity, alopecia, oral/nasal ulcers, sicca symptoms, lymphadenopathy, chest pain/shortness of breath, inflammatory type joint pain, foamy urine, lower extremity edema, muscle weakness, Raynaud's Also denies history of seizure, CVA, psychosis, history of kidney problems, history of cytopenias, history of VTE including PE or DVTs OB History: No history of recurrent miscarriages Current Rheumatology Medication(s): Celebrex 200 mg b.i.d. Milnacipran 50 mg twice a day Pregabalin 225 mg twice a day PFSH Social History Household Members: Family Housing: House Alcohol intake: never Patient Tobacco Use Status: Never used Tobacco e-Cigarette/Vaping Use: Never Used Review of Systems Const Details: Review of Systems Constitutional: Denies fever, chills, weight loss ENT: Denies vision changes, eye pain or eye redness, dental caries, dry mouth GI: Denies nausea, vomiting, diarrhea, abdominal pain, change in BM Pulm: Denies SOB, ARANA, hemoptysis, wheezing Cards: Denies chest pain, palpitations Skin: Denies Raynaud's, rash, nail changes, photosensitivity, SOFTWARE DEVELOPMENT SPECIALIST: Denies headaches, weakness, paresthesias, recurrent falls MSK: as per HPI All other systems reviewed and are unremarkable except noted above Physical Exam Vital Signs: Last Vital Signs Pulse 99 12/03/24 08:09 Resp 16 12/03/24 08:09 BP 115/70 12/03/24 08:09 Pulse Ox 98 12/03/24 08:09 Oxygen Delivery Method Room Air 12/03/24 08:09 BMI result Body Mass Index 39.5 Vital signs reviewed Physical Examination CONSTITUITIONAL Patient alert and cooperative. Well appearing and in no apparent painful distress HEENT Conjunctiva and sclera clear. ?Pupils equal round and reactive to light. ?No lymphadenopathy. ?Normal dentition. No oral or nasal ulcers noted. No evidence of discoid rash to the thuy of ears CHEST/RESPIRATORY SYSTEM Normal respiratory effort and able to speak in complete sentences. ?Clear to auscultation bilaterally. ?No crackles, rales, rhonchi, wheezes heard. CARDIAC SYSTEM Regular rate and rhythm. ?S1 and S2 heard no murmurs. ?Radial pulses intact bilaterally MSK Hands: ?Good guitar repairer strength bilaterally. ?No deformities noted. ?No synovitis noted to the MCPs, PIPs or DIPs. ?No tenderness to palpation of these joints. Wrists: ?Full range of motion at the wrists without pain. ?No tenderness to palpation or synovitis noted to the wrists. Elbows: Full range of motion without pain. No tenderness, weakness, swelling, increased warmth or erythema. Shoulders: Full range of motion without pain. No tenderness, weakness, swelling, increased warmth or erythema. Hip bursa: Exquisite tenderness to palpation of bilateral hip bursa Knees: ?Full range of motion. ?No tenderness, swelling, increased warmth or erythema.?No effusion or crepitations Ankles: Full range of motion. ?No tenderness, swelling, increased warmth or erythema.? Feet: ?Negative squeeze test. ?No tenderness to palpation or swelling of the MTPs. Tender points:??Tenderness to palpation of bilateral trapezius, bilateral lower back, bilateral outer knees. SKIN Skin intact without rashes. Results Reviewed Results Reviewed: Laboratory Tests 04/09/24 11/27/24 13:33 08:43 WBC 8.2 RBC 4.25 Hgb 11.0 L Hct 34.7 L Plt Count 366 ESR 26 H Sodium 142 Potassium 3.6 Chloride 112 H Carbon Dioxide 21 L BUN 20 H Creatinine 1.10 AST 13 ALT 8 Alkaline Phosphatase 65 C-Reactive Protein 1.04 H Immunology labs 02/02/24 04/09/24 09:50 13:33 Rheumatoid Factor < 13.0 LAVINIA Screen NEGATIVE Double Strand DNA Ab 9 H Assessment & Plan Assessment & Plan (1) Fibromyalgia: Code(s): M79.7 - Fibromyalgia Category: Medical Plan: #Fibromyalgia Patient is a 34-year-old female with fibromyalgia here today for follow up. Has not had a good trial of the medications so we will need to follow up again in 6 months to review efficacy. Doing better with sleep and weight loss. Again encouraged regular stretching (twice a day) Plan - Pregabalin to 25 mg b.i.d. - Celebrex 200 mg b.i.d. - Milnacipran 50 mg b.i.d. - RTC 6 months Plan I spent 20 minutes reviewing the record and labs, seeing the patient, discussing the treatment plan and documenting in the medical record Medications: Refilled celecoxib (Celebrex) 200 mg PO BID 180 caps 1RF M79.7 - Fibromyalgia milnacipran 50 mg (2 x 25 mg) PO BID 90 days 360 tabs 1RF M79.7 - Fibromyalgia pregabalin 225 mg PO BID 90 days 180 caps 1RF M79.7 - Fibromyalgia Coding Level of Care Code Est Pt Level 3 (17208) Diagnoses Fibromyalgia M79.7
--- OUTSIDE RECORDS SUMMARY | 2024-12-03 08:04 | XMS_ITS | Encounter Summary ---
Author Organization [employer] Address [address] [place] [address] Care Team Providers Care Clerical Support Name Role Phone Celina Mirza MD Primary Care Provider [phone] Shannan Craft Unavailable [phone] Yannick, Yessy OD Unavailable Reason for Visit * Reason Comments Med Refill Encounter Details Date Type Department Care Team (Late st Contact Info) Description 10/26/2023 Refill [facility] [address], [place] [phone] Celina Mirza MD [address] [place], [place] [phone] Influenza-like symptoms Social History Tobacco Use Types Packs/Day Years Used Date Smoking Tobacco: Never Smokeless Tobacco: Never Alcohol Use Standard Drinks/Week Comments Never 0 (1 standard drink = 0.6 oz pur e alcohol) Housing Stability Answer Date Recorded What is your housing situation today? I have housing today, but I am worried about losing housing in the future 05/16/[address] you li ve. Do you have problems with any of the following? None of the above 05/16/2023 Food Insecurity Answer Date Recorded Within the past 12 months, y ou worried that your food would run out before you got money to buy more: Never True 05/16/2023 Within the past 12 months,th e food you bought just didn't last and you didn't have enough money to get more: Never True Transportation Answer Date Recorded In the past 12 months, has l ack of transportation kept you from medical appts, meetings, work or from getting things needed for daily living? No 05/16/2023 Utilities Answer Date Recorded In the past 12 months, has t he electric, gas, oil or water company threatened to shut off services in your home? No 05/16/2023 Depression Answer Date Recorded Patient Health Questionnaire-2 Score 0 07/12/2022 Comments Unknown Sex and Gender Information Value Date Recorded Sex Assigned at Female 05/24/2022 10:17 AM EDT Legal Sex Female 10:17 AM EDT Gender Identity Female 05/24/2022 10:17 AM EDT Sexual Orientation Straight 05/24/2022 10 :17 AM EDT documented as of this encounter Plan of Treatment Upcoming Encounters Date Type Department Care Team (Late st Contact Info) Description 02/04/2025 9:45 AM EDT Office Visit [facility] [address] [place] [phone] Celina Mirza MD [address] [place] [phone] documented as of this encounter Visit Diagnoses Diagnosis Influenza-like symptoms Other general symptoms documented in this encounter Care Teams Clerical Support Relationship Specialty Start Date End Date Celina Mirza MD [address] [place] [address] PCP - General Family Medicine 07/25/18 Shannan Craft [address] [place] [phone] Sleep Medicine 09/20/24 Yessy Lanier OD [address] [place] [id number] Optometry 09/25/24 Justa Lorenzo MD [facility] Rheumatology 06/13/24 documented as of this encounter
--- OUTSIDE RECORDS SUMMARY | 2024-12-03 08:04 | XMS_ITS | Encounter Summary ---
Author Organization [employer] Address [address] 7t [place] [address] Care Team Providers Care Technology Lead Name Role Phone Celina Mirza MD Primary Care Provider +1- [phone] Shannan Craft Unavailable Yannick, Yessy OD Unavailable [phone] Reason for Visit * Reason Comments Med Refill Encounter Details Date Type Department Care Team (Late st Contact Info) Description 09/13/2024 Refill [facility] MED[facility] [address] [place], [place] [phone] Celina Mirza MD [address] [place], [place] [phone] Gastroesophageal reflux disease, unspecified whether esophagitis present Social History Tobacco Use Types Packs/Day Years Used Date Smoking Tobacco: Never Smokeless Tobacco: Never Alcohol Use Standard Drinks/Week Comments Never 0 (1 standard drink = 0.6 oz pur e alcohol) Alcohol Answer Date Recorded Frequency of Alcohol Consumption Not on file 02/01/2024 Average Number of Drinks Not on file 024 Frequency of Binge Drinking Not on file 01/22 Score 0 02/01/2024 Depression Answer Date Recorded Patient Health Questionnaire-9 Score 16 02/01/2024 Patient Health Questionnaire-9 Score 16 02/01/2024 Last PHQ-9: Questionnaire Data Not on file 0 02/01/2024 Housing Stability Answer Date Recorded What is your housing situation today? I have abdulaziz guerrero 02/01/[address] you li ve. Do you have problems with any of the following? None of the above 02/01/2024 Food Insecurity Answer Date Recorded Within the past 12 months, y ou worried that your food would run out before you got money to buy more: Never True 02/01/2024 Within the past 12 months,th e food you bought just didn't last and you didn't have enough money to get more: Never True 04/2024 Transportation Answer Date Recorded In the past 12 months, has l ack of transportation kept you from medical appts, meetings, work or from getting things needed for daily living? No 02/01/2024 Utilities Answer Date Recorded In the past 12 months, has t he electric, gas, oil or water company threatened to shut off services in your home? No 02/01/2024 Depression Answer Date Recorded Patient Health Questionnaire-2 Score 5 02/01/2024 Internet Access Answer Date Recorded Internet Access Q1 No 03/26/2024 Internet Access Q2 I do not want or need it 08/2023 Comments Unknown Sex and Gender Information Value [...] Description 02/04/2025 9:45 AM EDT Office Visit [facility] MEDICINE [address] [place] [address] Celina Mirza MD [address] [place] [address] documented as of this encounter Visit Diagnoses Diagnosis Gastroesophageal reflux disease, unspecified whether esophagitis present documented in this encounter Additional Health Concerns Assessment Noted Time PHQ-9 Depression Total Score: 16 024 11:41 AM EDT documented as of this encounter Care Teams Technology Lead Relationship Specialty Start Date End Date Celina Mirza MD [address] [place] [address] PCP - General Family Medicine 07/25/18 Shannan Craft [address] [phone] Sleep Medicine 09/20/24 Yessy Lanier OD [address] [place] [address] Optometry 09/25/24 Justa Lorenzo MD [facility] Rheumatology 06/13/24 documented as of this encounter
--- OUTSIDE RECORDS SUMMARY | 2024-12-03 08:04 | XMS_ITS | Encounter Summary ---
Author Organization [employer] Address [address] [place] [address] Care Team Providers Care Art Therapy Specialist Name Role Phone Celina Mirza MD Primary Care Provider +1- [phone] Shannan Craft Unavailable [phone] Yessy Lanier OD Unavailable [phone] Reason for Visit * Reason Comments Med Refill Encounter Details Date Type Department Care Team (Late st Contact Info) Description 10/22/2023 Refill [facility] MEDICINE [address] [place], [place] [phone] Cynthia Nowak MD 230 [place], [place] [phone] Diabetes mellitus without complication ([facility]) Social History Tobacco Use Types Packs/Day Years [...] Description 02/04/2025 9:45 AM EDT Office Visit [facility] MEDICINE [address] [place] [address] Celina Mirza MD 230 [place] [address] documented as of this encounter Visit Diagnoses Diagnosis Diabetes mellitus without complication (CMS/[facility]) Type II or unspecified type diabetes mellitus without mention of complication, not stated as uncontrolled documented in this encounter Care Teams Art Therapy Specialist Relationship Specialty Start Date End Date Celina Mirza MD 230 [place] [address] PCP - General Family Medicine 07/25/18 Shannan Craft [address] [phone] Sleep Medicine 09/20/24 Yessy Lanier OD [address] [place] [address] Optometry 09/25/24 Justa Lorenzo MD [facility] Rheumatology 06/13/24 documented as of this encounter
--- OUTSIDE RECORDS SUMMARY | 2024-12-03 08:04 | XMS_ITS | Encounter Summary ---
Author Organization [employer] Address [address] [facility] 7t [place] [address] Care Team Providers Care Business Office Specialist Name Role Phone Celina Mirza MD Primary Care Provider +1- [phone] Shannan Craft Unavailable Yannick, Yessy OD Unavailable Reason for Visit * Reason Comments Med Change Request Encounter Details Date Type Department Care Team (Late Contact Info) Description 03/31/2023 Refill [facility] MEDICINE [address] [place] [address] Celina Mirza MD [address] [place] [address] [phone] Mood disorder (CMS/HCC) Social History Tobacco Use Types Packs/Day Years Used Date Smoking Tobacco: Never Smokeless Tobacco: Never Alcohol Use Standard Drinks/Week Comments Never 0 (1 standard drink = 0.6 oz pur e alcohol) Depression Answer Date Recorded Patient Health Questionnaire-2 [...] Encounters Date Type Department Care Team (Late Contact Info) Description 02/04/2025 9:45 AM EDT Office Visit [facility] MEDICINE [address] [place] [address] Celina Mirza MD 230 [place] [address] documented as of this encounter Visit Diagnoses Diagnosis Mood disorder (CMS/HCC) Unspecified episodic mood disorder documented in this encounter Care Teams Business Office Specialist Relationship Specialty Start Date End Date Celina Mirza MD 230 [place] [address] PCP - General Family Medicine 07/25/18 Shannan Craft [address] [phone] Sleep Medicine 09/20/24 Yessy Lanier OD [address] [place] [address] Optometry 09/25/24 Justa Lorenzo MD [facility] Rheumatology 06/13/24 documented as of this encounter
--- OUTSIDE RECORDS SUMMARY | 2024-12-03 08:04 | XMS_ITS | Encounter Summary ---
Author Organization [employer] Address [address] 7t [place] [address] Care Team Providers Care Surveillance Supervisor Name Role Phone Celina Mirza MD Primary Care Provider +1- [phone] Shannan Craft Unavailable [phone] Yannick, Yessy OD Unavailable Reason for Visit * Reason Comments Med Refill Encounter Details Date Type Department Care Team (Late st Contact Info) Description 07/20/2023 Refill [facility] MEDICINE 230 [place], [place] [phone] Celina Mirza MD 230 [place], [place] [phone] Other migraine without status migrainosus, not intractable Social History Tobacco Use Types Packs/Day Years [...] Description 02/04/2025 9:45 AM EDT Office Visit [facility] MEDICINE 230 [place] [address] Celina Mirza MD 230 [place] [address] documented as of this encounter Visit Diagnoses Diagnosis Other migraine without status migrainosus, not intractable documented in this encounter Care Teams Surveillance Supervisor Relationship Specialty Start Date End Date Celina Mirza MD 230 [place] [address] PCP - General Family Medicine 07/25/18 Shannan Craft [address] [place] [phone] Sleep Medicine 09/20/24 Yessy Lanier OD [address] [place] [address] Optometry 09/25/24 Justa Lorenzo MD [facility] Rheumatology 06/13/24 documented as of this encounter
--- OUTSIDE RECORDS SUMMARY | 2024-12-03 08:04 | XMS_ITS | Encounter Summary ---
Author Organization [employer] Address [address] [facility] 7t [place] [address] Care Team Providers Care Veterinarian Name Role Phone Celina Mirza MD Primary Care Provider +- [phone] Shannan Craft Unavailable Yessy Lanier OD Unavailable [phone] Reason for Visit * Reason Comments Med Refill Encounter Details Date Type Department Care Team (Late Contact Info) Description 04/22/2023 Refill [facility] [address] [place] [address] Haylee Parker MD [address] [place] [address] Acute right ankle pain; Acute left ankle pain Social History Tobacco Use Types Packs/Day Years [...] Description 02/04/2025 9:45 AM EDT Office Visit [facility] MEDICINE 230 [place] [address] Celina Mirza MD 230 [place] [address] documented as of this encounter Visit Diagnoses Diagnosis Acute right ankle pain Acute left ankle pain documented in this encounter Care Teams Veterinarian Relationship Specialty Start Date End Date Celina Mirza MD 230 [place], [place] [phone] PCP - General Family Medicine 07/25/18 Shannan Craft [address] [phone] Sleep Medicine 09/20/24 Yessy Lanier OD [address] [place] [address] Optometry 09/25/24 Justa Lorenzo MD [facility] Rheumatology 06/13/24 documented as of this encounter
--- OUTSIDE RECORDS SUMMARY | 2024-12-03 08:04 | XMS_ITS | Encounter Summary ---
Author Organization [employer] Address [address] 7t [place] [address] Care Team Providers Care Manager Document Name Role Phone Celina Mirza MD Primary Care Provider +1- [phone] Shannan Craft Unavailable [phone] Yannick, Yessy OD Unavailable [phone] Reason for Visit * Reason Comments Med Refill Encounter Details Date Type Department Care Team (Late st Contact Info) Description 10/23/2024 Refill [facility] MEDICINE 230 [place], [place] [phone] Celina Mirza MD 230 [place], [place] [phone] Diabetes mellitus without complication ([facility]) Social History Tobacco Use Types [...] Description 02/04/2025 9:45 AM EDT Office Visit [facility] MEDICINE [address] [place] [address] Celina Mirza MD 230 [place] [address] documented as of this encounter Visit Diagnoses Diagnosis Diabetes mellitus without complication (CMS/[facility]) Type II or unspecified type diabetes mellitus without mention of complication, not stated as uncontrolled documented in this encounter Additional Health Concerns Assessment Noted Time PHQ-9 Depression Total Score: 16 024 11:41 AM EDT documented as of this encounter Care Teams Manager Document Relationship Specialty Start Date End Date Celina Mirza MD [address] [place] [address] PCP - General Family Medicine 07/25/18 Shannan Craft [address] [phone] Sleep Medicine 09/20/24 Yessy Lanier OD [address] [place] [address] Optometry 09/25/24 Justa Lorenzo MD [facility] Rheumatology 06/13/24 documented as of this encounter
--- OUTSIDE RECORDS SUMMARY | 2024-12-03 08:04 | XMS_ITS | Encounter Summary ---
Author Organization [employer] Address [address] 7t [place] [address] Care Team Providers Care Alarm Signal Operator Name Role Phone Celina Mirza MD Primary Care Provider +1- [phone] Shannan Craft Unavailable [phone] Yannick, Yessy OD Unavailable Reason for Visit * Reason Comments Med Change Request Encounter Details Date Type Department Care Team (Late st Contact Info) Description 11/23/2023 Refill [facility] [address] [place], [place] [phone] Celina Mirza MD 230 [place], [place] [phone] Diabetes mellitus without complication (CMS/HCC) Social History Tobacco Use Types Packs/Day [...] Description 02/04/2025 9:45 AM EDT Office Visit [facility] MEDICINE [address] [place] [address] Celina Mirza MD 230 [place] [address] documented as of this encounter Visit Diagnoses Diagnosis Diabetes mellitus without complication (CMS/HCC) Type II or unspecified type diabetes mellitus without mention of complication, not stated as uncontrolled documented in this encounter Care Teams Alarm Signal Operator Relationship Specialty Start Date End Date Celina Mirza MD 230 [place], [place] [phone] PCP - General Family Medicine 07/25/18 Shannan Craft [address] [phone] Sleep Medicine 09/20/24 Yessy Lanier OD [address] [place] [address] Optometry 09/25/24 Justa Lorenzo MD [facility] Rheumatology 06/13/24 documented as of this encounter
--- OUTSIDE RECORDS SUMMARY | 2024-12-03 08:04 | XMS_ITS | Encounter Summary ---
Author Organization [employer] Address [address] [facility] 7t [place] [address] Care Team Providers Care Watch Commander Name Role Phone Celina Mirza MD Primary Care Provider +- [phone] Shannan Craft Unavailable [phone] Yannick, Yessy VIOLA Unavailable [phone] Encounter Details Date Type Department Care Team (Late Contact Info) Description 04/25/2023 Abstract [facility] MEDICINE [address] [place] [address] Celina Mirza MD [address] [place] [address] [phone] Preventative health care Social History Tobacco Use Types Packs/Day Years [...] Upcoming Encounters Date Type Department Care Team ([facility] Contact Info) Description 02/04/2025 9:45 AM EDT Office Visit [facility] MEDICINE [address] [place] [address] Celina Mirza MD 230 [place] [address] documented as of this encounter Visit Diagnoses Diagnosis Preventative health care Routine general medical examination at a health care facility documented in this encounter Care Teams Watch Commander Relationship Specialty Start Date End Date Celina Mirza MD 230 [place] [address] PCP - General Family Medicine 07/25/18 Shannan Craft [address] [phone] Sleep Medicine 09/20/24 Yessy Lanier OD [address] [place] [address] Optometry 09/25/24 Justa Lorenzo MD [facility] Rheumatology 06/13/24 documented as of this encounter
--- OUTSIDE RECORDS SUMMARY | 2024-12-03 08:04 | XMS_ITS | Encounter Summary ---
Author Organization [employer] Address [address] 7t [place] [address] Care Team Providers Care Director Telecommunications Name Role Phone Celina Mirza MD Primary Care Provider + [phone] Shannan Craft Unavailable [phone] Yessy Lanier OD Unavailable [phone] Reason for Visit * Reason Comments Med Refill Encounter Details Date Type Department Care Team (Late st Contact Info) Description 10/26/2023 Refill [facility] 230 [place] [address] Haylee Parker MD 230 [place] [address] Acute right ankle pain; Acute left ankle [...] Description 02/04/2025 9:45 AM EDT Office Visit [facility] MEDICINE [address] [place] [address] Celina Mirza MD [address] [place] [address] documented as of this encounter Visit Diagnoses Diagnosis Acute right ankle pain Acute left ankle pain documented in this encounter Care Teams Director Telecommunications Relationship Specialty Start Date End Date Celina Mirza MD [address] [place] [address] PCP - General Family Medicine 07/25/18 Shannan Craft [address] [place] [phone] Sleep Medicine 09/20/24 Yessy Lanier OD [address] [place] [address] Optometry 09/25/24 Justa Lorenzo MD [facility] Rheumatology 06/13/24 documented as of this encounter
--- OUTSIDE RECORDS SUMMARY | 2024-12-03 08:04 | XMS_ITS | Encounter Summary ---
Author Organization [employer] Address [address] 7t [place] [address] Care Team Providers Care Field Coil Winder Name Role Phone Celina Mirza MD Primary Care Provider +- [phone] Shannan Craft Unavailable [phone] Yessy Lanier OD Unavailable [phone] Reason for Visit * Reason Comments Med Refill Encounter Details Date Type Department Care Team (Late st Contact Info) Description 08/08/2023 Refill [facility] 230 [place], [place] [phone] Haylee Parker MD 230 [place] [address] Acute right ankle pain; Acute left ankle [...] Description 02/04/2025 9:45 AM EDT Office Visit [facility] MEDICINE [address] [place] [address] Celina Mirza MD [address] [place] [address] documented as of this encounter Visit Diagnoses Diagnosis Acute right ankle pain Acute left ankle pain documented in this encounter Care Teams Field Coil Winder Relationship Specialty Start Date End Date Celina Mirza MD 230 [place] [address] PCP - General Family Medicine 07/25/18 Shannan Craft [address] [place] [phone] Sleep Medicine 09/20/24 Yessy Lanier OD [address] [place] [address] Optometry 09/25/24 Justa Lorenzo MD [facility] Rheumatology 06/13/24 documented as of this encounter
--- OUTSIDE RECORDS SUMMARY | 2024-12-03 08:04 | XMS_ITS | Clinical Summary ---
Author Organization [employer] Address [address] [place] [address] Care Team Providers Care Director Of People Name Role Phone Celina Mirza MD Primary Care Provider [phone] Shannan Craft Unavailable [phone] Yessy Lanier OD Unavailable [phone] Allergies No known active allergies Medications buPROPion XL (Wellbutrin XL) 300 MG 24 hr tabletIndicatio ns:Mood disorder (CMS/HCC) Take 1 tablet (300 mg) by mouth in the morning. 90 tablet 3 022 Active atorvastatin (Lipitor) 20 MG tabletIndicatio ns:Diabetes mellitus without complication (CMS/HCC),Dysli pidemia Take 1 tablet (20 mg) by mouth in the morning. 90 tablet 3 022 Active busPIRone (Buspar) 5 MG tabletIndicatio ns:Mood disorder (CMS/HCC) Take 5 mg by mouth 2 times daily. 024 Active lidocaine (Lidoderm) 5 % patchIndication s:Fibromyalgia APPLY 1 PATCH TOPICALLY DAILY LEAVE ON MOST PAINFUL AREA FOR UP TO 12 HRS 024 Active buPROPion XL (Wellbutrin XL) 150 MG 24 hr tabletIndicatio ns:Mood disorder (CMS/HCC) TAKE 1 TABLET BY MOUTH EVERY MORNING TAKE WITH THE 300MG TABLET FOR A TOTAL OF 450MG DAILY 024 Active glucose blood (FREESTYLE LITE) test stripIndication s:Diabetes mellitus without complication (CMS/HCC) Use bid, dx diabetes 100 each 3 024 Active diclofenac (Voltaren) 75 MG EC tabletIndicatio ns:Pain of foot, unspecified laterality Take 75 mg by mouth 2 times daily. Do not crush, chew, or split. Active DULoxetine (Cymbalta) [address] capsuleIndicati ons:Mood disorder (CMS/HCC) Take 60 mg by mouth Once per day. Do not crush or chew.from psychiatry Active topiramate (Topamax) 100 MG tabletIndicatio ns:Chronic migraine w/o aura w/o status migrainosus, not intractable Take 1 tablet (100 mg) by mouth at bedtime. Dose increased 06/27/24 90 tablet 3 024 2024 Active Blood Glucose Monitoring Suppl (FreeStyle [place] Lite) w/Device kitIndications: Type 2 diabetes mellitus without complication, without long-term current use of insulin ([facility]) Use to test blood sugar bid dx dm 1 kit Active glucose blood (FREESTYLE LITE) test stripIndication s:Type 2 diabetes mellitus without complication, without long-term current use of insulin ([facility]) Use bid. Dx diabetes 60 each 11 024 Active FreeStyle lancetsIndicati ons:Type 2 diabetes mellitus without complication, without long-term current use of insulin ([facility]) 1 each by Other route if needed each day (prn). Use bid, dx type 2 diabetes 30 each 11 024 Active cyclobenzaprine (Flexeril) 10 MG tabletIndicatio ns:Fibromyalgia TAKE 1 TABLET BY MOUTH EVERYDAY AT BEDTIME 90 tablet 3 025 Active cholecalciferol (Vitamin D3) 25 MCG (1000 UT) tabletIndicatio ns:Vitamin D deficiency TAKE 1 TABLET BY MOUTH EVERY DAY 90 tablet 3 025 Active omeprazole (PriLOSEC) [address] capsuleIndicati ons:Gastroesoph ageal reflux disease, unspecified whether esophagitis present TAKE 1 CAPSULE BY MOUTH EVERY DAY NEEDED 90 capsule 1 025 Active pregabalin (Lyrica) 150 MG capsuleIndicati ons:Fibromyalgi a TAKE 1 CAPSULE BY MOUTH TWICE A DAY 60 capsule 025 Active melatonin 3 MG tabletIndicatio ns:Primary insomnia TAKE 1 TABLET BY MOUTH NEEDED FOR INSOMNIA 90 tablet 025 Active metFORMIN (Glucophage) 500 MG tabletIndicatio ns:Diabetes mellitus without complication (CMS/HCC) TAKE 1 TABLET BY MOUTH IN THE MORNING AND IN THE EVENING 180 tablet 025 Active Semaglutide, 2 MG/DOSE, (Ozempic, 2 MG/DOSE,) 8 MG/3ML solution pen-injectorInd ications:Diabet es mellitus without complication (CMS/HCC) INJECT 2MG SUBCUTANEOUSLY ONCE WEEKLY ON THE SAME DAY EVERY WEEK 3 mL 025 Active acetaminophen (Tylenol 8 Hour) 650 MG ER tabletIndicatio ns:Pain TAKE 1 TABLET BY MOUTH EVERY 8 HOURS NEEDED FOR PAIN FOR 10 DAYS DONT CRUSH CHEW OR SPLIT 30 tablet 025 Active acetaminophen (Tylenol 8 Hour) 650 MG ER tabletIndicatio ns:Pain TAKE 1 TABLET BY MOUTH EVERY 8 HOURS NEEDED FOR PAIN FOR 10 DAYS DONT CRUSH CHEW OR SPLIT 30 tablet 025 2024 Discontinued(R eorder (will not trigger notification to Pharmacy)) Active Problems Patient Care Coordination No te Formatting of this note migh t be different from the original. 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 Assessment & Plan (05/23/2024 11:46 AM EDT): Resolved. Complex care coordination 05/23/2024 Overview (05/23/2024): Has child care sitter. Still waiting approval for home assistance through [facility]. Discussed to call medical records. Assessment & Plan (05/23/2024 11:48 AM EDT): Has child care sitter. Still waiting approval for home assistance through [facility]. Discussed to call medical records. Pap smear for cervical cancer screening 04/20/20 Overview (04/20/2024): Pap with HPV testing done 04/20/24. STI testing offered, PreP offered. Preventative care and harm reduction discussed. Assessment & Plan (04/20/2024 10:03 AM EDT): Pap with HPV testing done 04/20/24. STI testing offered, PreP offered. Preventative care and harm reduction discussed. Chronic migraine w/o aura w/ o status migrainosus, not intractable 04/20/2024 Overview (07/04/2024): Chronic migraines in the past, recent reoccurrence with associated nausea and episodes of vomiting. Had been on Amitriptyline in the past. -Start Topamax 04/20/24 -ordered MR brain 04/20/24 -increased Topamax to 100 mg 06/27/24 -MRI 07/04/24 1. No acute intracranial abnormalities. No MRI abnormalities to explain the patient's symptoms. Assessment & Plan (06/27/2024 11:41 AM EST): Chronic migraines in the past, recent reoccurrence with associated nausea and episodes of vomiting. Had been on Amitriptyline in the past. -Start Topamax 04/20/24 -ordered MR brain 04/20/24 -increased Topamax to 100 mg 06/27/24 Assessment & Plan (04/20/2024 10:20 AM EDT): Chronic migraines in the past, recent reoccurrence with associated nausea and episodes of vomiting. Had been on Amitriptyline in the past. -Start Topamax 04/20/24 -ordered MR brain 04/20/24 Other insomnia 04/20/2024 Overview (06/27/2024): Had been on Trazodone, but stopped the past 2 weeks. -Stop Trazodone 04/20/24 -Start Topamax 04/20/24 -increase Topamax to 100 mg 06/27/24 Assessment & Plan (06/27/2024 11:40 AM EST): Had been on Trazodone, but stopped the past 2 weeks. -Stop Trazodone 04/20/24 -Start Topamax 04/20/24 -increase Topamax to 100 mg 06/27/24 Assessment & Plan (04/20/2024 10:19 AM EDT): Had been on Trazodone, but stopped the past 2 weeks. -Stop Trazodone 04/20/24 -Start Topamax 04/20/24 Microalbuminuria 03/08/2024 Overview (03/08/2024): -microalbumin to creatinine ratio was elevated on 02/02/24 at 51.2. -Diabetes well-controlled -Will recheck this and consider Nephrology for etiology work-up and possibly starting an KENDRICK inhibitor. Assessment & Plan (03/08/2024 5:39 PM EDT): -microalbumin to creatinine ratio was elevated on 02/02/24 at 51.2. -Diabetes well-controlled -Will recheck this and consider Nephrology for etiology work-up and possibly starting an KENDRICK inhibitor. Pain of foot 03/08/2024 Ds DNA antibody positive 02/08/2024 Overview (04/20/2024): -Given family history of rheumatological disease and exacerbation of symptoms, rheumatological labs ordered. Anti DS DNA intermediate, will recheck. -Referred to rheumatology 02/08/24. Lab Results Component Value Date DNADSAB 9 (A) 04/09/2024 DNADSAB 7 (A) 02/02/2024 CREACPROT 1.04 (H) 04/09/2024 CREACPROT 0.42 02/02/2024 CREACPROT 0.58 (H) 11/29/2023 ESR 26 (H) 04/09/2024 ESR 18 02/02/2024 ESR 23 (H) 11/29/2023 -had appt. with rheumatology, but needs to call to reschedule due to [employer]st called out. Assessment & Plan (04/20/2024 10:13 AM EDT): -Given family history of rheumatological disease and exacerbation of symptoms, rheumatological labs ordered. Anti DS DNA intermediate, will recheck. -Referred to rheumatology 02/08/24. Lab Results Component Value Date DNADSAB 9 (A) 04/09/2024 DNADSAB 7 (A) 02/02/2024 CREACPROT 1.04 (H) 04/09/2024 CREACPROT 0.42 02/02/2024 CREACPROT 0.58 (H) 11/29/2023 ESR 26 (H) 04/09/2024 ESR 18 02/02/2024 ESR 23 (H) 11/29/2023 -had appt. with rheumatology, but needs to call to reschedule due to [employer]st called out. Assessment & Plan (03/08/2024 5:40 PM EDT): -Given family history of rheumatological disease and exacerbation of symptoms, rheumatological labs ordered. Anti DS DNA intermediate, will recheck. Assessment & Plan (02/08/2024 1:21 PM EDT): Given family history of rheumatological disease and exacerbation of symptoms, rheumatological labs ordered. Anti DS DNA positive. Will refer to rheumatology for evaluation. Physical exam 02/01/2024 Migraine 03/23/2023 Overview (07/04/2024): -Will trial 25mg amitriptyline 03/23/2023. Assessment & Plan (03/23/2023 1:06 PM EDT): Will trial 25mg amitriptyline 03/23/2023. Bilateral ankle pain 03/23/2023 Overview (03/23/2023): Referral to PT 03/23/2023 - no fracture on xray Assessment & Plan (03/23/2023 1:06 PM EDT): Referral to PT 03/23/2023 - no fracture on xray Acute right ankle pain 03/04/2023 Assessment & Plan (03/04/2023 3:19 PM EDT): Elevate ankles apply ice and rest Left ankle pain 03/04/2023 Overview (01/19/2024): Seen by ortho 01/05/24 Right knee pain 07/12/2022 Dermatitis 07/12/2022 Preventative health care 07/08/2022 Overview (04/20/2024): -next physical exam due after 01/31/25 -eye care facilitated by [facility] -[place], pt will schedule an appt -health care proxy given 02/01/24, filed 04/20/24 Assessment & Plan (02/01/2024 11:25 AM EDT): -next physical exam due after 01/31/25 -[facility] [place] pt will schedule an appt -health care proxy given and filed 02/01/24 Dyslipidemia 01/05/2022 Overview (03/08/2024): Lab Results Component Value Date CHOL 150 02/02/2024 CHOL 162 11/29/2023 TRIG 280 (H) 02/02/2024 TRIG 234 (H) 11/29/2023 TRIG 193 (H) 07/12/2022 HDL 38 (L) 02/02/2024 HDL 44 11/29/2023 LDLCHOLCAL 56 02/02/2024 LDLCHOLCAL 72 11/29/2023 -continue lifestyle modification -start atorvastatin 20 mg po daily on 05/14/2020 -consider fish oil Assessment & Plan (03/08/2024 5:40 PM EDT): Lab Results Component Value Date CHOL 150 02/02/2024 CHOL 162 11/29/2023 TRIG 280 (H) 02/02/2024 TRIG 234 (H) 11/29/2023 TRIG 193 (H) 07/12/2022 HDL 38 (L) 02/02/2024 HDL 44 11/29/2023 LDLCHOLCAL 56 02/02/2024 LDLCHOLCAL 72 11/29/2023 -continue lifestyle modification -start atorvastatin 20 mg po daily on 05/14/2020 -consider fish oil Assessment & Plan (02/01/2024 11:27 AM EDT): Given diabetes, LDL > 100, family history of crenshaw disease statin initiated. Start atorvastatin 20 mg po daily on 05/14/2020 -ordered lipid panel 02/01/24 Assessment & Plan (10/04/2022 11:21 AM EDT): Given diabetes, LDL > 100, family history of crenshaw disease statin initiated. Start atorvastatin 20 mg po daily on 05/14/2020 -check FLP in 3 months Fibromyalgia 01/05/2022 Overview (06/08/2024): Pt has chronic pain syndrome. Work up for autoimmune disease was unremarkable. I explained this is a noninflammatory, non-autoimmune central afferent processing disorder leading to a diffuse pain syndrome. Different treatment strategies for fibromyalgia discussed. -There is moderate evidence for efficacy for aerobic exercise, cognitive behavioral therapy, patient education, and group therapy. There is also evidence for acupuncture, hypnotherapy, biofeedback and balneotherapy. There is some weaker evidence for chiropractic therapy, massage, electrotherapy and ultrasound. There is no evidence that trigger point injections or opioids are beneficial in fibromyalgia. -Pharmacologic options include muscle relaxants, gabapentin, pregabalin, and duloxetine, but are the lest effective of all strategies. -Pt was counseled on the importance of exercise, adequate sleep, control of depression and or anxiety and stress management. -Continue cyclobenzaprine at bedtime and Lyrica -rheumatology note 06/08/24 Increase gabapentin to 225 mg twice a day, change duloxetine to milnacipran, add Celebrex 200 mg twice a day Exercise: Patient lives close to the [facility]. She has to go there at least twice a week in the pool since the children are in school now. Also recommended stretches in the evenings when she takes her warm showers. Also recommended 10-20 minutes of YouTube fibromyalgia stressors twice a day. Sleep: Encouraged good sleep hygiene. We will consider sleep apnea testing in the future Counseling: Counseled patient on the diagnosis of fibromyalgia all questions answered Assessment & Plan (03/08/2024 5:39 PM EDT): Pt has chronic pain syndrome. Work up for autoimmune disease was unremarkable. I explained this is a noninflammatory, non-autoimmune central afferent processing disorder leading to a diffuse pain syndrome. Different treatment strategies for fibromyalgia discussed. -There is moderate evidence for efficacy for aerobic exercise, cognitive behavioral therapy, patient education, and group therapy. There is also evidence for acupuncture, hypnotherapy, biofeedback and balneotherapy. There is some weaker evidence for chiropractic therapy, massage, electrotherapy and ultrasound. There is no evidence that trigger point injections or opioids are beneficial in fibromyalgia. -Pharmacologic options include muscle relaxants, gabapentin, pregabalin, and duloxetine, but are the lest effective of all strategies. -Pt was counseled on the importance of exercise, adequate sleep, control of depression and or anxiety and stress management. -Continue cyclobenzaprine at bedtime and Lyrica Assessment & Plan (02/08/2024 1:23 PM EDT): Continue cyclobenzaprine qhs -Prescribed gabbapentin by rheumatology, but she's on multiple other sedating medciations so we recommended she ween off it. Tolerating lyrica well. She is unsure if it has made a difference yet -not currently seeing Rheumatology, pt still having pain -hx of rheumatoid arthritis -elevated ESR and CRP -ordered labs 02/01/24 and will evaluate for possible referral to rheumatology. Assessment & Plan (11/29/2023 2:39 PM EDT): I suspect that patient's worsening pain, occurring gradually over the past several months is a worsening of her fibromyalgia. - will check inflammatory markers today - if normal, will recommend increasing Elavil to 50mg - return to gym as much as possible - consider acupuncture group visits in [place] - consider swimming and/or light stretching exercises Assessment & Plan (10/06/2022 10:09 AM EDT): Tolerating lyrica well. She is unsure if it has made a difference yet. Assessment & Plan (08/12/2022 10:18 AM EST): Continue cyclobenzaprine qhs -No longer on gabapentin. -Prescribing lyrica 1 tab 75mg PO BID, titrate it up to 150mg after first week. Vitamin D deficiency 01/05/2022 Overview (08/05/2022): Start Vitamin D 1000 units daily Assessment & Plan (03/08/2024 5:40 PM EDT): Continue Vitamin D 1000 units daily Assessment & Plan (10/04/2022 11:22 AM EDT): Start Vitamin D 1000 units daily Assessment & Plan (08/05/2022 2:59 PM EST): Start Vitamin D 1000 units daily Obstructive sleep apnea of adult 01/05/2022 Overview (09/20/2024): -Followed by [facility]. Note from ALFREDO Lester 09/20/24 reviewed -Moderate SALOMÓN on sleep study 06/2016 on CPAP, has supplies -PSG completed 09/2020 showed mild SALOMÓN -continue APAP 5-15 cmH2O Assessment & Plan (03/08/2024 5:37 PM EDT): -Followed by [facility] -Moderate SALOMÓN on sleep study 06/2016 on CPAP, has supplies Assessment & Plan (02/01/2024 11:30 AM EDT): -Moderate SALOMÓN on sleep study 06/2016 on CAPA -Followed by sleep medicine Assessment & Plan (10/04/2022 11:21 AM EDT): Pt diagnosed with moderate SALOMÓN in 06/2016. Successful CPAP titration done in 07/2016. She is tolerateing CPAP. Followed by sleep medicine. -Saw sleep medicine January 08 2021. -Over due for f/u, she needs new equipment, gave pt number to call. Assessment & Plan (07/08/2022 11:59 AM EST): -Moderate SALOMÓN on sleep study 06/2016 on CAPA -Followed by sleep medicine Essential hypertension 12/08/2018 Overview (06/27/2024): -Blood pressure is slightly above goal, suspect due to lack of sleep. -Continue lifestyle modifications -Continue current medications Assessment & Plan (06/27/2024 11:40 AM EST): -Blood pressure is slightly above goal, suspect due to lack of sleep. -Continue lifestyle modifications -Continue current medications Assessment & Plan (02/01/2024 11:36 AM EDT): -Blood pressure unable to obtain due to pain -Continue lifestyle modifications -Continue current medications Assessment & Plan (11/29/2023 2:37 PM EDT): Ordered labs to assist PCP, we will followup after they are completed Assessment & Plan (06/13/2023 3:14 PM EST): Today elevated, reports at home has being good I advise low Na diet take medications every day and f/u with PCP Mood disorder 12/20/2017 Overview (04/20/2024): -sees psychiatrist, but will be switching to a new one since her current psychiatrist is leaving -established at [facility]. Assessment & Plan (04/20/2024 10:22 AM EDT): -sees psychiatrist, but will be switching to a new one since her current psychiatrist is leaving -established at [facility]. Assessment & Plan (02/01/2024 11:26 AM EDT): -sees psychiatrist, but will be switching to a new one since her current psychiatrist is leaving Type 2 diabetes mellitus wit hout complication, without long-term current use of insulin 08/17/2017 Overview (06/27/2024): Diabetes is controlled. Lab Results Component Value Date HGBA1C 6.1 (A) 05/23/2024 HGBA1C 5.8 02/02/2024 HGBA1C 02/01/2024 Comment: erro Lab Results Component Value Date CREATININE 1.13 02/02/2024 EGFR 55 02/02/2024 MICROALBCREU 13.0 04/09/2024 MICROALBCREU 51.2 (H) 02/02/2024 LDLCHOLCAL 56 02/02/2024 -Kendrick/Arb: will discuss after family planning discussion given risk of kendrick on -Statin therapy: atorvastatin 20mg started 04/2020 -Diabetic eye exam: per [facility] eye -Diabetic foot exam: done 02/01/24 -Continue lifestyle modifications -Continue current medications -Ozempic restarted 11/21/23 at 0.5mg subcutaneously weekly -Ozempic increased 11/23/23 to 0.75ml (1mg) weekly -Ozempic increased 02/01/24 to 2mg weekly she just restarted and has been taking 2 weeks, cannot get refills due to back ordered 05/23/24 Assessment & Plan (06/27/2024 11:46 AM EST): Diabetes is controlled. Lab Results Component Value Date HGBA1C 6.1 (A) 05/23/2024 HGBA1C 5.8 02/02/2024 HGBA1C 02/01/2024 Comment: erro Lab Results Component Value Date CREATININE 1.13 02/02/2024 EGFR 55 02/02/2024 MICROALBCREU 13.0 04/09/2024 MICROALBCREU 51.2 (H) 02/02/2024 LDLCHOLCAL 56 02/02/2024 -Kendrick/Arb: will discuss after family planning discussion given risk of kendrick on -Statin therapy: atorvastatin 20mg started 04/2020 -Diabetic eye exam: per [facility] eye -Diabetic foot exam: done 02/01/24 -Continue lifestyle modifications -Continue current medications -Ozempic restarted 11/21/23 at 0.5mg subcutaneously weekly -Ozempic increased 11/23/23 to 0.75ml (1mg) weekly -Ozempic increased 02/01/24 to 2mg weekly she just restarted and has been taking 2 weeks, cannot get refills due to back ordered 05/23/24 Assessment & Plan (05/23/2024 11:47 AM EDT): Diabetes is controlled. Lab Results Component Value Date HGBA1C 6.1 (A) 05/23/2024 HGBA1C 5.8 02/02/2024 HGBA1C 02/01/2024 Comment: erro Lab Results Component Value Date CREATININE 1.13 02/02/2024 EGFR 55 02/02/2024 MICROALBCREU 13.0 04/09/2024 MICROALBCREU 51.2 (H) 02/02/2024 LDLCHOLCAL 56 02/02/2024 -Kendrick/Arb: will discuss after family planning discussion given risk of kendrick on -Statin therapy: atorvastatin 20mg started 04/2020 -Diabetic eye exam: per [facility] eye -Diabetic foot exam: done 02/01/24 -Continue lifestyle modifications -Continue current medications -Ozempic restarted 11/21/23 at 0.5mg subcutaneously weekly -Ozempic increased 11/23/23 to 0.75ml (1mg) weekly -Ozempic increased 02/01/24 to 2mg weekly she just restarted and has been taking 2 weeks, cannot get refills due to back ordered 05/23/24 Assessment & Plan (03/08/2024 5:39 PM EDT): Diabetes is controlled. Lab Results Component Value Date HGBA1C 5.8 02/02/2024 HGBA1C 02/01/2024 Comment: erro HGBA1C 5.6 11/29/2023 Lab Results Component Value Date CREATININE 1.13 02/02/2024 EGFR 55 02/02/2024 MICROALBCREU 51.2 (H) 02/02/2024 LDLCHOLCAL 56 02/02/2024 -Kendrick/Arb: will discuss after family planning discussion given risk of kendrick on -Statin therapy: atorvastatin 20mg started 04/2020 -Diabetic eye exam: per [facility] eye -Diabetic foot exam: done 02/01/24 -Continue lifestyle modifications -Continue current medications -Ozempic restarted 11/21/23 at 0.5mg subcutaneously weekly -Ozempic increased 11/23/23 to 0.75ml (1mg) weekly -Ozempic increased 02/01/24 to 2mg weekly she just restarted and has been taking 2 weeks Assessment & Plan (02/08/2024 1:22 PM EDT): Diabetes is controlled. Lab Results Component Value Date HGBA1C 5.8 02/02/2024 HGBA1C 02/01/2024 Comment: erro HGBA1C 5.6 11/29/2023 Lab Results Component Value Date CREATININE 1.13 02/02/2024 EGFR 55 02/02/2024 MICROALBCREU 51.2 (H) 02/02/2024 LDLCHOLCAL 56 02/02/2024 -Kendrick/Arb: will discuss after family planning discussion given risk of kendrick on -Statin therapy: atorvastatin 20mg started 04/2020 -Diabetic eye exam: per [facility] eye -Diabetic foot exam: done 02/01/24 -Continue lifestyle modifications -Continue current medications -Ozempic restarted 11/21/23 at 0.5mg subcutaneously weekly -Ozempic increased 11/23/23 to 0.75ml (1mg) weekly -Ozempic increased 02/01/24 to 2mg weekly Assessment & Plan (10/06/2022 10:10 AM EDT): Tolerating trulicity. If no weightloss in 3 months we will switch to ozempic. Assessment & Plan (08/12/2022 10:21 AM EST): - metFORMIN (Glucophage) 500 MG tablet; Take 1 tablet (500 mg) by mouth in the morning and at bedtime. - atorvastatin (Lipitor) 20 MG tablet; Take 1 tablet (20 mg) by mouth in the morning. - dulaglutide (Trulicity) 0.75 MG/0.5ML solution pen-injector; Inject 0.75 mg under the skin 1 (one) time per week. - Hepatic Function Panel; Future - Lipid Panel, Standard; Future - Albumin, urine, random; Future - Basic metabolic panel; Future - Hemoglobin A1c; Future - Starting Trulicity today. 08/12/2022.. Myositis 05/12/2014 Anxiety 02/07/2013 Chronic headache disorder 05/04/2012 Steatosis of liver 05/04/2012 Agoraphobia 05/03/2012 Class 3 severe obesity with serious comorbidity in adult 05/03/2012 Overview (06/27/2024): Baseline weight 269lbs 02/2023 Weight 02/2023 269lbs Weight 06/2024 243lbs -Ozempic restarted 11/21/23 at 0.5mg subcutaneously weekly -Ozempic increased 11/23/23 to 0.75ml (1mg) weekly -Ozempic increased 02/01/24 to 2mg weekly she just restarted and has been taking 2 weeks, cannot get refills due to back ordered 05/23/24 Baseline weight: 243lbs 06/27/24 Assessment & Plan (06/27/2024 11:47 AM EST): Baseline weight 269lbs 02/2023 Weight 02/2023 269lbs Weight 06/2024 243lbs -Ozempic restarted 11/21/23 at 0.5mg subcutaneously weekly -Ozempic increased 11/23/23 to 0.75ml (1mg) weekly -Ozempic increased 02/01/24 to 2mg weekly she just restarted and has been taking 2 weeks, cannot get refills due to back ordered 05/23/24 Baseline weight: 243lbs 06/27/24 Assessment & Plan (05/23/2024 11:49 AM EDT): Ozempic restarted 11/21/23 at 0.5mg subcutaneously weekly -Ozempic increased 11/23/23 to 0.75ml (1mg) weekly -Ozempic increased 02/01/24 to 2mg weekly she just restarted and has been taking 2 weeks, cannot get refills due to back ordered 05/23/24 Assessment & Plan (07/12/2022 10:45 AM EST): Trulicity started 07/12/2022 F/u 1 month Resolved Problems Problem Noted Date Diagnosed Date Resolved Date COVID 06/13/2023 03/08/2024 Assessment & Plan (06/13/2023 3:13 PM EST): Drink plenty of fluids and rest If SOB, confusion, chest pain got to the emergency room or call ambulance SHYANNE Infected abrasion of great toe of right foot 04/25/2023 Assessment & Plan (10/06/2022 10:10 AM EDT): Will treat with Bactrim. Decreased sensation. X-ray ordered 10/06/22. Acute conjunctivitis of left eye 10/06/2022 04/25/2023 Overview (10/06/2022): Stye. Recommend warm compresses. May be element of conjuctivits. Will treat with erythromycin. Assessment & Plan (10/06/2022 10:08 AM EDT): Stye. Recommend warm compresses. May be element of conjuctivits. Will treat with erythromycin. Tachycardia 10/06/2022 04/25/2023 Overview (10/06/2022): Pt appears to have URI. BS normal. Home COVID test given. F/u if symptoms worsen. Assessment & Plan (10/06/2022 10:07 AM EDT): Pt appears to have URI. BS normal. Home COVID test given. F/u if symptoms worsen. Physical exam 07/08/2022 07/08/2022 Encounters Date Type Department Care Team Description 11/21/2024 Refill [facility] [address] [facility] [place] [address] Celina Mirza MD Diabetes mellitus without complication ([facility]) 11/20/2024 Refill [facility] [address] [facility] [place] [address] Celina Mirza MD Pain 11/09/2024 Telephone [facility] [address] [facility] [place] [address] Celina Mirza MD January Recalls 11/09/2024 Travel 10/25/2024 Refill [facility] [address] [facility] [place] [address] Celina Mirza MD Pain 10/23/2024 Refill [facility] [address] [place] [address] Celina Mirza MD Diabetes mellitus without complication ([facility]) 10/05/2024 Population Health [facility] () Department [address] [place] [address] [phone] Provider, Population Health Generic 09/26/2024 Telephone [facility] [address] [place] [address] Celina Mirza MD Med Refill 09/25/2024 Refill [facility] [address] [place] [address] Celina Mirza MD Diabetes mellitus without complication ([facility]); Pain 09/25/2024 Orders Only [facility] [address] [place] [address] Celina Mirza MD 09/13/2024 Refill [facility] [address] [place] [address] Celina Mirza MD Gastroesophageal reflux disease, unspecified whether esophagitis present from Last 3 Months Immunizations Name Administration Dates Next Due DTaP 12/02/1992, 2,1988,1988 HPV, Quadrivalent 06/13/2008,03/14/2008,08/30/19 08 Hep A, Adult 02/01/2024 Hep B, Adolescent or Pediatric 10/09/1996,1995,03/05/1996 Hib ([facility]) 01/04/1992 IPV 12/03/1992, 2,1988,1987 Influenza injectable quadriv alent IIV4 with preservative 04/05/2019,04/15/2016 Influenza injectable quadriv alent preservative free 04/01/2022,04/30/2021,05/23/2020,2016,04/16/2015 Influenza, IIV3, injectable 04/10/2014 Influenza, Split (incl. cassia fied surface antigen) 05/02/2013,05/04/2012 Influenza, seasonal, injecta ble, preservative free 04/09/2024 MMR 12/03/1992,07/01/1989 Pfizer Covid-19 Vaccine 12+ 04/23/2024,,04/24/2021 Pneumococcal Conjugate PCV 20 02/01/2024 Rubella 11/23/2012 TD (adult), 2 Lf tetanus tox oid, preservative free, adsorbed 02/04/2004 Tdap 02/01/2024,05/04/2012 Varicella 03/08/1994 Family History Medical History Relation Name Comments Thyroid disease Brother Coronary artery disease Father Ankylosing spondylitis Mother Diabetes type II Mother Relation Name Status Comments Brother Father Mother Social History Tobacco Use Types Packs/Day Years Used Date Smoking Tobacco: Never Smokeless Tobacco: Never Tobacco Cessation:Counseling Given: Not Answered Alcohol Use Standard Drinks/Week Comments Never 0 [...] is your housing situation today? I have abdulazizgela guerrero 02/01/[address] you [...] Orientation Straight 05/24/2022 10 :17 AM EDT Last Filed Vital Signs Vital Sign Reading Time Taken Comments Blood Pressure 128/93 06/27/2024 11:20 AM EST Pulse 123 06/27/2024 11:20 AM EST Temperature 35.5 ??C (95.9 ??F) 06/27/2024 11:[address] Respiratory Rate 20 06/27/2024 11:20 AM EST Oxygen Saturation 98% 06/27/2024 11:20 AM EST Inhaled Oxygen Concentration - - Weight 110 kg (243 lb) 06/27/2024 11:20 AM EST Height 157.5 cm (5' 2 ) 06/27/2024 11:20 AM EST Body Mass Index 44.45 06/27/2024 11:20 AM EST Plan of Treatment Upcoming Encounters Date Type Department Care Team (Late st Contact Info) Description 02/04/2025 9:45 AM EDT Office Visit [facility] [address] [place] [address] Celina Mirza MD [address] [place] [address] Health Maintenance Due Date Last Done Comments Hepatitis A Vaccines (2 of 2 - Risk 2-dose series) 08/03/2024 02/01/2024 Diabetes: Hemoglobin A1C 11/21/2024 024, 02/02/2024, 11/29/2023, Additional history exists Alcohol/Substance Use Screening 01/31/2025 02/01/2024 Depression Screening 01/31/2025 02/01/2024, 02/01/20 24 Diabetes: Foot Exam 01/31/2025 02/01/2024, 02/01/2024, 02/01/2024 SDOH Screening 01/31/2025 02/01/2024 Lipid Panel 02/01/2025 02/02/2024, 05/0 01/2024, 07/12/2022, Additional history exists Diabetes: Urine Protein Screening 04/09/2025 04/09/2024, 02/02/2024, 01/12/2022 Family Planning (PISQ) 04/20/2025 04/20/2024 Tobacco Screening 06/27/2025 06/27/2024 Eye Exam 05/30/2026 05/30/2024, 110 12/2023, 05/30/2024, Additional history exists Pap Smear 04/20/2027 04/20/2024, 03/24/2018 Cervical Cancer Screening 04/20/2029 HPV/Cotest 04/20/2029 04/20/2024, 03/24/2018 DTaP/Tdap/Td Vaccines (7 - Td or Tdap) 01/31/2034 02/01/2024, 05/04/2012, 02/04/2004, Additional history exists Zoster Vaccines (1 of 2) 2038 RSV Patients and Patients Aged 60 years or older (1 - 1-dose 75+ series) 2063 HIB Vaccines Completed 01/04/1992 IPV Vaccines Completed 12/03/1992, 12/23, 1988, Additional history exists Hepatitis B Vaccines Completed 10/09/1996, 04/11/1996, 03/05/1996 HPV Vaccines Completed 06/13/2008, 02/23, 08/30/2007 Hepatitis C Screening Completed 07/12/2022, 022 Pneumococcal Vaccine: Pediatrics (0 to 5 Years) and At-Risk Patients (6 to 49) Years) Completed 02/01/2024 Influenza Vaccine Completed 04/09/2024, , 04/30/2021, Additional history exists COVID-19 Vaccine Completed 04/23/2024, , 04/24/2021 HIV Screening Completed 11/27/2024, 06/24, 01/12/2022 Meningococcal Vaccine Aged Out No emmanuel cherry eligible based on patient's age to complete this topic RSV under 20 months Aged Out No longe r eligible based on patient's age to complete this topic Rotavirus Vaccines Aged Out No longer eligible based on patient's age to complete this topic Procedures Procedure Name Priority Date/Time Associated Diagnosis Comments SYPHILIS SCREEN Routine 11/27/2024 8:43 AM EDT Routine screening for STI (sexually transmitted infection) HIV 1/2 ANTIGEN/ANTIBODY, FOURTH GENERATION W/RFL Routine 11/27/2024 8:43 AM EDT Routine screening for STI (sexually transmitted infection) POCT GLYCATED HEMOGLOBIN, TOTAL Routine 05/23/2024 11:29 AM EDT Diabetes mellitus without complication (CMS/HCC) THINPREP IMAGING PAP AND HPV MRNA E6/E7 Routine 04/20/2024 12:00 AM EDT ALBUMIN, RANDOM URINE W/CREATININE Routine 04/09/2024 1:33 PM EDT Microalbuminuria LIPID PANEL, STANDARD Routine 02/02/2024 9:50 AM EDT Diabetes mellitus without complication (CMS/HCC) HEPATITIS C AB W/REFL TO HCV RNA, QN, PCR Routine 07/12/2022 10:08 AM EST Fibromyalgia from Last 3 Months or Most Recently Relevant to Health Maintenance Results * Syphilis Screen (11/27/2024 8:43 AM EDT) Syphilis Screen Nonreactive Nonreactive [facility] Blood Venous blood specimen / Unknown 11/27/2024 8:43 AM EDT 11/27/2024 11:19 AM EDT us Celina Mirza MD LAB BLOOD ORDERABLES Final Result [facility] [address] [place] [phone] * HIV-1/2 Antigen and Antibodies, Fourth Generation, with Reflexes (11/27/2024 8:43 AM EDT) Pathologist [facility] HIV AB/AG Nonreactive Nonreactive [facility] Comment:HIV-1 p24 Ag and/or HIV-1/HIV-2 Ab not detected.A test result that is nonreactive does not exclude thepossibility of exposure to or infection with HIV-1 and/orHIV-2. Nonreactive results in this assay for individualswith prior exposure to HIV-1 and/or HIV-2 may be due toantigen and antibody levels that are below the limit ofdetection of this assay.The [employer] HIV Ag/Ab Combo assay result andsupplemental assay results should be interpreted inconjunction with the patient's clinical presentation,history and other laboratory results. If the results areinconsistent with clinical evidence, additional testing issuggested to confirm the result. Blood Venous blood specimen / Unknown 11/27/2024 8:43 AM EDT 11/27/2024 11:07 AM EDT Celina Mirza MD LAB BLOOD ORDERABLES Final Result [facility] [address] [place] [address] [phone] * (ABNORMAL) POCT HGB A1C (05/23/2024 11:29 AM EDT) [facility] Hemoglobin A1C 6.1(A) 4.0 - 6.0 % QC Media Lot # [id number] Lot# Expiration Date [id number] Blood 05/23/2024 11:2 9 AM EDT Celina Mirza MD POINT OF CARE TEST ENTER/E DIT ORDERABLES Final Result * ThinPrep Imaging Pap and HPV mRNA E6/E7 (04/20/2024 12:00 AM EDT) [facility] HPV nRNA E6/E7 Not Detected [facility] Comment:REFERENCE RANGE: Not DetectedMethodology: Chemical Production Engineer-Mediated AmplificationThis assay detects E6/E7 viral messenger RNA (mRNA) from 14high- risk HPV types(16,18,31,33,35,39,45,51,52,56,58,59,66,68).Cervical sources are required for HPV testing.If a vaginal source from a patient who has had atotal hysterectomy with removal of cervix wassubmitted, please contact the testing laboratoryfor alternative testing options.For additional information, please refer tohttp://education.[employer]/faq/HRB565i4(This link if provided for information/educational purposes only.)THIS TEST PERFORMED AT:[facility] [address] [phone] DIRECTOR: AMISH BORGES MD SOURCE: Cervix [facility] Report Status: [facility] Clinical Information: None given [facility] LMP: NONE GIVEN [facility] Prev. PAP: NONE GIVEN [facility] Prev. BX: NONE GIVEN [facility] Statement Of Adequacy: SEE NOTE [facility] Comment:Satisfactory for charu luation.Endocervical/transformation zone componentpresent. General Categorization: [facility] Interpretation/Result: SEE NOTE [facility] Comment:Cytology Results: Ne gative for intraepitheliallesion or malignancy. Cytology Comment SEE NOTE [facility] Comment:This Pap test has be en evaluated with computerassisted technology. Cold Press Operator: SEE NOTE [facility] Comment:RPR, CT (ASCP) CT sc reening location:[address] [address] Review Cold Press Operator: [facility] Pathologist [facility] PAP Infection SEE NOTE [facility] Comment:Shift in vaginal vanda ra suggestive of bacterialvaginosis. See Note EXPLANATORY NOTE [facility] Comment:The Pap is a screeni ng test for cervical cancer. It isnot a diagnostic test and is subject to false negativeand false positive results. It is most reliable when asatisfactory sample, regularly obtained, is submittedwith relevant clinical findings and history, and whenthe Pap result is evaluated along with historic andcurrent clinical information.THIS TEST PERFORMED AT:[facility] [address] [phone] DIRECTOR: AMISH BORGES MD 04/20/2024 04/20/2024 Narrative [facility] - 05/02/2024 1:29 PM EDT SEE SCANNED RESULTS IN EMR Celina Mirza MD LAB PATHOLOGY ORDERABLES F inal Result Performing Organization Address City/[facility]/ZIP Co de Phone Number [facility] [address] [place] [address] [phone] * Albumin, Random Urine W/Creatinine (04/09/2024 1:33 PM EDT) Creatinine, Urine 191.67 mg/dL [facility] Microalbumin Urine 25.0 mg/L [facility] Microalbum Creatinine Ratio Ur 13.0 <30 ug/mg cr [facility] Comment:Albumin/Creatinine R atio Reference Ranges: Normal: < 30 ug/mg creatinine Microalbuminuria: 30 - 300 ug/mg creatinineClinical Albuminuria: > 300 ug/mg creatinine Urine 04/09/2024 1:33 PM EDT 04/09/2024 3:55 PM EDT Celina Mirza MD LAB URINE ORDERABLES Final Result Performing Organization Address [facility]/ZIP Co de Phone Number [facility] [address] [place] [address] [phone] * (ABNORMAL) Lipid Panel, Standard (02/02/2024 9:50 AM EDT) Triglycerides 280(H) <150 mg/dL [facility] Comment:Desirable Triglyceri de: less than 150 mg/dLBorderline High Triglyceride 150-199 mg/dLHigh Triglyceride: 200-499 mg/dLVery High Triglyceride: greater than or equal to 5OO mg/dL Cholesterol 150 <200 mg/dL [facility] Comment:Desirable Cholestero l: less than 200 mg/dLBorderline High Cholesterol: 200-239 mg/dLHigh Cholesterol: greater than 239 mg/dL LDL Cholesterol Calculated 56 <100 mg/dL [facility] Comment:Desirable LDL: less than 100 mg/dLNear Optimal/Above Optimal LDL: 110- 129 mg/dLBorderline High LDL: 130-159 mg/dLHigh LDL: 160-189 mg/dLVery High LDL: greater than or equal to 190 mg/dL HDL Cholesterol 38(L) >40 mg/dL [facility] Comment:Desirable HDL: great er than 40 mg/dL Note: This HDL assay may give artificially low results in patients with liver disease. Blood Venous blood specimen / Unknown 02/02/2024 9:50 AM EDT 02/02/2024 11:33 AM EDT Celina Mirza MD LAB BLOOD ORDERABLES Final Result [facility] [address] [place] [phone] * Hepatitis C Antibody with Reflex to HCV, RNA, Quantitative, Real-Time PCR (07/12/2022 10:08 AM EST) Hepatitis C Antibody NON-REACT TERRIE NON-REACT TERRIE [employer] [facility] [place] [facility] Index 0.10 <1.00 [facility] Comment: HCV antibody was non-reactive. There is no laboratory evidence of HCV infection. In most cases, no further action is required. However, if recent HCV exposure is suspected, a test for HCV RNA (test code 56046) is suggested. For additional information please refer to http://education.[employer]/faq/GTF33g7 (This link is being provided for informational/ educational purposes only.) Blood Venous blood specimen / Unknown 07/12/2022 10:08 AM EST 07/12/2022 10:08 AM EST Narrative [facility] - 07/15/2022 7:08 PM EST FASTING:YES FASTING: YES Celina Mirza MD LAB BLOOD ORDERABLES Final Result [facility] [address] [facility] [place] [address] [employer] [facility] [address] ([address]) [place] [phone] from Last 3 Months or Most Recently Relevant to Health Maintenance Insurance [employer] [address] [place] [address] , [place] [address] Advance Directives Documents on File Type Date Recorded 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
--- OUTSIDE RECORDS SUMMARY | 2024-12-03 08:04 | XMS_ITS | Encounter Summary ---
Author Organization [employer] Address [address] [place] [address] Care Team Providers Care Senior Network Systems Engineer Name Role Phone Celina Mirza MD Primary Care Provider [phone] Shannan Craft Unavailable Yannick, Yessy OD Unavailable [phone] Reason for Visit * Reason Comments Med Refill Encounter Details Date Type Department Care Team (Late st Contact Info) Description 11/21/2024 Refill [facility] [address] [place], [place] [phone] Celina Mirza MD [address] [place], [place] [phone] Diabetes mellitus without complication ([facility]) Social History Tobacco Use Types [...] Description 02/04/2025 9:45 AM EDT Office Visit [facility] [address] [place] [phone] Celina Mirza MD [address] [place] [address] documented as of this encounter Visit Diagnoses Diagnosis Diabetes mellitus without complication ([facility]) Type II or unspecified type diabetes mellitus without mention of complication, not stated as uncontrolled documented in this encounter Additional Health Concerns Assessment Noted Time PHQ-9 Depression Total Score: 16 024 11:41 AM EDT documented as of this encounter Care Teams Senior Network Systems Engineer Relationship Specialty Start Date End Date Celina Mirza MD [address] [place] [address] PCP - General Family Medicine 07/25/18 Shannan Craft [address] [phone] Sleep Medicine 09/20/24 Yessy Lanier OD [address] [place] [phone] Optometry 09/25/24 Justa Lorenzo MD [facility] Rheumatology 06/13/24 documented as of this encounter
--- OUTSIDE RECORDS SUMMARY | 2024-12-03 08:04 | XMS_ITS | Encounter Summary ---
Author Organization [employer] Address [address] [place] [address] Care Team Providers Care Director Of Neurology Name Role Phone Celina Mirza MD Primary Care Provider + [phone] Shannan Craft Unavailable [phone] Yessy Lanier OD Unavailable [phone] Reason for Visit * Reason Comments Med Refill Encounter Details Date Type Department Care Team (Late st Contact Info) Description 05/16/2023 Refill [facility] [address] [place] [address] Haylee Parker MD [address] [place] [address] Acute right ankle pain; Acute left ankle [...] 02/04/2025 9:45 AM EDT Office Visit [facility] [address] [place] [address] Celina Mirza MD [address] [place] [address] documented as of this encounter Visit Diagnoses Diagnosis Acute right ankle pain Acute left ankle pain documented in this encounter Care Teams Director Of Neurology Relationship Specialty Start Date End Date Celina Mirza MD [address] [place] [address] PCP - General Family Medicine 07/25/18 Shannan Craft [address] [place] [phone] Sleep Medicine 09/20/24 Yessy Lanier OD [address] [place] [phone] Optometry 09/25/24 Justa Lorenzo MD [facility] Rheumatology 06/13/24 documented as of this encounter
--- OUTSIDE RECORDS SUMMARY | 2024-12-03 08:04 | XMS_ITS | Encounter Summary ---
Author Organization [employer] Address [address] [facility] 7t [place] [address] Care Team Providers Care Resident Service Coordinator Name Role Phone Celina Mirza MD Primary Care Provider +- [phone] Shannan Craft Unavailable Yannick, Yessy VIOLA Unavailable Encounter Details Date Type Department Care Team (Late Contact Info) Description 04/25/2023 Orders Only [facility] [address] [place] [address] Celina Mirza MD [address] [place] [address] [phone] Social History Tobacco Use Types Packs/Day Years [...] EDT Office Visit [facility] [address] [place] [address] Celina Mirza MD [address] [place] [address] documented as of this encounter Visit Diagnoses Not on filedocumented in this encounter Care Teams Resident Service Coordinator Relationship Specialty Start Date End Date Celina Mirza MD [address] [place] [address] PCP - General Family Medicine 07/25/18 Shannan Craft [address] [phone] Sleep Medicine 09/20/24 Yessy Lanier OD [address] [place] [address] Optometry 09/25/24 Justa Lorenzo MD [facility] Rheumatology 06/13/24 documented as of this encounter
--- OUTSIDE RECORDS SUMMARY | 2024-12-03 08:04 | XMS_ITS | Encounter Summary ---
Author Organization [employer] Address [address] [place] [address] Care Team Providers Care Conference Services Manager Name Role Phone Celina Mirza MD Primary Care Provider +- [phone] Shannan Craft Unavailable [phone] Yessy Lanier OD Unavailable [phone] Encounter Details Date Type Department Care Team (Late st Contact Info) Description 12/02/2023 Orders Only [facility] [address] [place] [address] Clara Newman MD [address] [place], [place] [phone] Social History Tobacco Use Types Packs/Day Years [...] Description 02/04/2025 9:45 AM EDT Office Visit [facility] [address] [place] [address] Celina Mirza MD [address] [place] [address] documented as of this encounter Visit Diagnoses Not on filedocumented in this encounter Care Teams Conference Services Manager Relationship Specialty Start Date End Date Celina Mirza MD [address] [place] [address] PCP - General Family Medicine 07/25/18 Shannan Craft [address] [place] [phone] Sleep Medicine 09/20/24 Yessy Lanier OD [address] [place] [address] [phone] Optometry 09/25/24 Justa Lorenzo MD [facility] Rheumatology 06/13/24 documented as of this encounter
--- OUTSIDE RECORDS SUMMARY | 2024-12-03 08:04 | XMS_ITS | Encounter Summary ---
Author Organization [employer] Address [address] [place] [address] Care Team Providers Care Billet Checker Name Role Phone Celina Mirza MD Primary Care Provider +- [phone] Shannan Craft Unavailable [phone] Yessy Lanier OD Unavailable [phone] Reason for Visit * Reason Comments Med Refill Encounter Details Date Type Department Care Team (Late st Contact Info) Description 06/13/2023 Refill [facility] [address] [place] [address] Haylee Parker MD [address] [place] [address] Acute right ankle pain; Acute left ankle [...] 02/04/2025 9:45 AM EDT Office Visit [facility] [address] [place] [address] Celina Mirza MD [address] [place] [address] documented as of this encounter Visit Diagnoses Diagnosis Acute right ankle pain Acute left ankle pain documented in this encounter Care Teams Billet Checker Relationship Specialty Start Date End Date Celina Mirza MD [address] [place] [address] PCP - General Family Medicine 07/25/18 Shannan Craft [address] [place] [phone] Sleep Medicine 09/20/24 Yessy Lanier OD [address] [place] [phone] Optometry 09/25/24 Justa Lorenzo MD [facility] Rheumatology 06/13/24 documented as of this encounter
--- OUTSIDE RECORDS SUMMARY | 2024-12-03 08:04 | XMS_ITS | Encounter Summary ---
Author Organization [employer] Address [address] 7t [place] [address] Care Team Providers Care Typing Office Worker Name Role Phone Celina Mirza MD Primary Care Provider +1- [phone] Shannan Craft Unavailable Yannick, Yessy OD Unavailable Reason for Visit * Reason Comments Med Refill Encounter Details Date Type Department Care Team (Late st Contact Info) Description 12/23/2023 Refill [facility] 230 [place], [place] [phone] Celina Mirza MD 230 [place], [place] [phone] Gastroesophageal reflux disease, unspecified whether esophagitis present [...] 9:45 AM EDT Office Visit [facility] 230 [place] [address] Celina Mirza MD [address] [place] [address] documented as of this encounter Visit Diagnoses Diagnosis Gastroesophageal reflux disease, unspecified whether esophagitis present documented in this encounter Care Teams Typing Office Worker Relationship Specialty Start Date End Date Celina Mirza MD 230 [place] [address] PCP - General Family Medicine 07/25/18 Shannan Craft [address] [place] [phone] Sleep Medicine 09/20/24 Yessy Lanier OD [address] [place] [address] Optometry 09/25/24 Justa Lorenzo MD [facility] Rheumatology 06/13/24 documented as of this encounter
--- OUTSIDE RECORDS SUMMARY | 2024-12-03 08:05 | XMS_ITS | Encounter Summary ---
Author Organization [employer] Address [address] 7t [place] [address] Care Team Providers Care Cab Starter Name Role Phone Celina Mirza MD Primary Care Provider +1- [phone] Shannan Craft Unavailable [phone] Yessy Lanier OD Unavailable [phone] Reason for Visit * Reason Comments Med Refill Encounter Details Date Type Department Care Team ([facility] st Contact Info) Description 06/13/2023 Refill [facility] 230 [place], [place] [phone] Cynthia Nowak MD 230 [place], [place] [phone] Fibromyalgia Social History Tobacco Use Types Packs/Day Years [...] Description 02/04/2025 9:45 AM EDT Office Visit [facility] [address] [place] [address] Celina Mirza MD [address] [place] [address] documented as of this encounter Visit Diagnoses Diagnosis Fibromyalgia Unspecified myalgia and myositis documented in this encounter Care Teams Cab Starter Relationship Specialty Start Date End Date Celina Mirza MD [address] [place] [address] PCP - General Family Medicine 07/25/18 Shannan Craft [address] [place] [phone] Sleep Medicine 09/20/24 Yessy Lanier OD [address] [place] [address] Optometry 09/25/24 Justa Lorenzo MD [facility] Rheumatology 06/13/24 documented as of this encounter
--- OUTSIDE RECORDS SUMMARY | 2024-12-03 08:05 | XMS_ITS | Encounter Summary ---
Author Organization [employer] Address [address] [address] [address] 7t [place] [address] Care Team Providers Care Launch Operator Name Role Phone Celina Mirza MD Primary Care Provider +1- [phone] Shannan Craft Unavailable [phone] Yannick, Yessy OD Unavailable [phone] Reason for Visit * Reason Onset Date Comments Medication Question 06/07/2023 Encounter Details Date Type Department Care Team (Late st Contact Info) Description 06/07/2023 Telephone [facility] 230 [place], [place] [phone] Celina Mirza MD 230 [place], [place] [phone] Medication Question Social History Tobacco Use Types Packs/Day Years [...] AM EDT documented as of this encounter Miscellaneous Notes * Telephone Encounter - Neto Merrill - 06/07/2023 10:15 AM EST Tc from patient calling in regards to Ozempic, 0.25 or 0.5 MG/DOSE, 2 MG/3ML solution pen-injector states the pharmacy would not fill telegraphic typewriter installer did call pharmacy and it is currently on back order. Also patient requires a medication plan on how to take it going forward. documented in this encounter Plan of Treatment Upcoming Encounters Date Type Department Care Team (Late st Contact Info) Description 02/04/2025 9:45 AM EDT Office Visit [facility] 230 [place] [address] Celina Mirza MD 230 [place] [address] documented as of this encounter Visit Diagnoses Not on filedocumented in this encounter Care Teams Launch Operator Relationship Specialty Start Date End Date Celina Mirza MD 230 [place] [address] PCP - General Family Medicine 07/25/18 Shannan Craft [address] [address] Sleep Medicine 09/20/24 Yessy Lanier OD [address] [place] [address] Optometry 09/25/24 Justa Lorenzo MD [facility] Rheumatology 06/13/24 documented as of this encounter
--- OUTSIDE RECORDS SUMMARY | 2024-12-03 08:05 | XMS_ITS | Encounter Summary ---
Author Organization [employer] Address [address] 7t [place] [address] Care Team Providers Care Utility Maintenance Worker Name Role Phone Celina Mirza MD Primary Care Provider +1- [phone] Shannan Craft Unavailable [phone] Yessy Lanier OD Unavailable [phone] Reason for Visit * Reason Onset Date Comments Med Refill 06/13/2023 Encounter Details Date Type Department Care Team (Late st Contact Info) Description 06/13/2023 Refill [facility] 230 [place], [place] [phone] Cynthia Nowak MD 230 [place], [place] [phone] Influenza-like symptoms Social History Tobacco Use Types [...] Description 02/04/2025 9:45 AM EDT Office Visit [facility] 230 [place] [address] Celina Mirza MD 230 [place] [address] documented as of this encounter Visit Diagnoses Diagnosis Influenza-like symptoms Other general symptoms documented in this encounter Care Teams Utility Maintenance Worker Relationship Specialty Start Date End Date Celina Mirza MD 230 [place] [address] PCP - General Family Medicine 07/25/18 Shannan Craft [address] [place] [phone] Sleep Medicine 09/20/24 Yessy Lanier OD [address] [place] [address] Optometry 09/25/24 Justa Lorenzo MD [facility] Rheumatology 06/13/24 documented as of this encounter
--- OUTSIDE RECORDS SUMMARY | 2024-12-03 08:05 | XMS_ITS | Encounter Summary ---
Author Organization [employer] Address [address] 7t [place] [address] Care Team Providers Care Dairy Management Specialist Name Role Phone Celina Mirza MD Primary Care Provider +1- [phone] Shannan Craft Unavailable [phone] Yannick, Yessy OD Unavailable [phone] Reason for Visit * Reason Onset Date Comments Med Refill 06/14/2023 Encounter Details Date Type Department Care Team (Late st Contact Info) Description 06/14/2023 Telephone [facility] 230 [place], [place] [phone] Celina Mirza MD 230 [place], [place] [phone] Med Refill Social History Tobacco Use Types Packs/Day Years [...] encounter Miscellaneous Notes * Telephone Encounter - Allyson Navarrete LPN - 06/14/2023 2:39 PM EST Medication pended to PCP. * Telephone Encounter - Elise Mcleod - 06/14/2023 2:35 PM EST Tc from pt requesting medication refill on pregabalin (Lyrica) 150 MG capsule to be sent to [facility]/pharmacy [address] [place] [address] documented in this encounter Plan of Treatment Upcoming Encounters Date Type Department Care Team (Late st Contact Info) Description 02/04/2025 9:45 AM EDT Office Visit [facility] 230 [place] [address] Celina Mirza MD 230 [place], [place] [phone] documented as of this encounter Visit Diagnoses Not on filedocumented in this encounter Care Teams Dairy Management Specialist Relationship Specialty Start Date End Date Celina Mirza MD 230 [place] [address] PCP - General Family Medicine 07/25/18 Shannan Craft [address] [phone] Sleep Medicine 09/20/24 Yessy Lanier OD [address] [place] [address] Optometry 09/25/24 Justa Lorenzo MD [facility] Rheumatology 06/13/24 documented as of this encounter
[2024-12-03 08:09] VITALS: BP 115/70; PULSE 99; RESP 16; O2SAT 98; BMI 39.5
== END 2024-12-03 08:36 | disposition home or self-care (01) ==
LOC: HO.RHE 08:00
PROVIDERS: PCP Family Medicine; Visit Provider Student in an Organized Health Care Education/Training Program
DX: M79.7 Fibromyalgia (principal)
CPT/HCPCS: 99213

== ENCOUNTER → 2024-12-03 08:00 | Outpatient (BNVA) | payer MEDICAID, SELFPAY | PROVIDERS: PCP Family Medicine; Visit Provider Student in an Organized Health Care Education/Training Program | DX: M79.7 Fibromyalgia (principal); E66.9 Obesity, unspecified; Z68.39 Body mass index [BMI] 39.0-39.9, adult; Z79.899 Other long term (current) drug therapy | CPT/HCPCS: 99212 ==

== ENCOUNTER 2025-03-27 10:58 | Outpatient (REF) | payer MEDICAID, SELFPAY ==
--- OUTSIDE RECORDS SUMMARY | 2025-03-27 13:12 | XMS_ITS | Encounter Summary ---
Author Organization [employer] Address [address] [facility] 7t [place] [address] Care Team Providers Care Eviscerator Name Role Phone Celina Mirza MD Primary Care Provider +1- [phone] Shannan Craft Unavailable Yessy Lanier OD Unavailable [phone] Encounter Details Date Type Department Care Team (Late Contact Info) Description 04/25/[address] [facility] 230 [place] [address] Celina Mirza MD 230 [place] [address] Preventative health care Social History Tobacco Use [...] Department Care Team (Late Contact Info) Description 08/12/2025 9:00 AM EST Office Visit [facility] OPTOMETRY [address] [place], [place] [phone] Yessy Lanier, OD 230 [place] [address] documented as of this encounter Visit Diagnoses Diagnosis Preventative health care Routine general medical examination at a health care facility documented in this encounter Care Teams Eviscerator Relationship Specialty Start Date End Date Celina Mirza MD 230 [place] [address] PCP - General Family Medicine 07/25/18 Shannan Craft [address] [phone] Sleep Medicine 09/20/24 Yessy Lanier OD [address] [place] [address] Optometry 09/25/24 Justa Lorenzo MD [facility] Rheumatology 06/13/24 Yanelis GEE virtual Psychiatry 02/04/25 Renee GEE 230 [place], [place] Psychology 02/04/25 documented as of this encounter
--- OUTSIDE RECORDS SUMMARY | 2025-03-27 13:12 | XMS_ITS | Encounter Summary ---
Author Organization [employer] Address [address] 7t [place] [address] Care Team Providers Care Transaction Processor Name Role Phone Celina Mirza MD Primary Care Provider +1- [phone] Shannan Craft Unavailable [phone] Yannick Yessy OD Unavailable Reason for Visit * Reason Comments Med Refill Encounter Details Date Type Department Care Team (Late st Contact Info) Description 10/26/2023 Refill [facility] 230 [place], [place] [phone] Celina Mirza MD 230 [place], [place] [phone] Influenza-like symptoms Social History Tobacco Use Types [...] Care Team (Late st Contact Info) Description 08/12/2025 9:00 AM EST Office Visit [facility] OPTOMETRY [address] [place] [address] Yessy Lanier, VIOLA 230 [place] [address] documented as of this encounter Visit Diagnoses Diagnosis Influenza-like symptoms Other general symptoms documented in this encounter Care Teams Transaction Processor Relationship Specialty Start Date End Date Celina Mirza MD 230 [place] [address] PCP - General Family Medicine 07/25/18 Shannan Craft [facility] [address] [address] Sleep Medicine 09/20/24 Yessy Lanier, VIOLA [address] [place] [address] Optometry 09/25/24 Justa Lorenzo MD [facility] Rheumatology 06/13/24 Yanelis GEE virtual Psychiatry 02/04/25 Renee GEE 230 [place], [place] Psychology 02/04/25 documented as of this encounter
--- OUTSIDE RECORDS SUMMARY | 2025-03-27 13:12 | XMS_ITS | Encounter Summary ---
Author Organization [employer] Address [address] 7t [place] [address] Care Team Providers Care Shoe Stamper Name Role Phone Celina Mirza MD Primary Care Provider +1- [phone] Shannan Craft Unavailable [phone] Yannick, Yessy OD Unavailable [phone] Reason for Visit * Reason Onset Date Comments Medication Question 06/07/2023 Encounter Details Date Type Department Care Team (Late st Contact Info) Description 06/07/2023 Telephone [facility] 230 [place], [place] [phone] Celina Mirza MD 230 [place], [place] [phone] Medication Question Social History Tobacco Use Types [...] pen-injector states the pharmacy would not fill engineering technical writer did call pharmacy and it is currently on back order. Also patient requires a medication plan on how to take it going forward. documented in this encounter Plan of Treatment Upcoming Encounters Date Type Department Care Team (Late st Contact Info) Description 08/12/2025 9:00 AM EST Office Visit [facility] OPT[facility]ETRY 267 [place] [address] Yannick, Yessy, OD 230 [place] [address] documented as of this encounter Visit Diagnoses Not on filedocumented in this encounter Care Teams Shoe Stamper Relationship Specialty Start Date End Date Celina Mirza MD 230 [place] [address] PCP - General Family Medicine 07/25/18 Shannan Craft [facility] [address] [phone] Sleep Medicine 09/20/24 Yessy Lanier OD [address] [place] [address] Optometry 09/25/24 Justa Lorenzo MD [facility] Rheumatology 06/13/24 Yanelis GEE virtual Psychiatry 02/04/25 Renee GEE [address] [place] [address] Psychology 02/04/25 documented as of this encounter
--- OUTSIDE RECORDS SUMMARY | 2025-03-27 13:12 | XMS_ITS | Encounter Summary ---
Author Organization [employer] Address [address] [facility] 7t [place] [address] Care Team Providers Care Consultant Nurse Name Role Phone Celina Mirza MD Primary Care Provider +1- [phone] Shannan Craft Unavailable Yannick, Yessy OD Unavailable [phone] Reason for Visit * Reason Comments Med Change Request Encounter Details Date Type Department Care Team (Late Contact Info) Description 03/31/2023 Refill [facility] 230 [place], [place] [phone] Celina Mirza MD 230 [place], [place] [phone] Mood disorder (CMS/HCC) Social History Tobacco Use [...] Upcoming Encounters Date Type Department Care Team ([facility] Contact Info) Description 08/12/2025 9:00 AM EST Office Visit [facility] OPTOMETRY 267 [place] [address] Yessy Lanier OD 230 [place] [address] documented as of this encounter Visit Diagnoses Diagnosis Mood disorder (CMS/HCC) Unspecified episodic mood disorder documented in this encounter Care Teams Consultant Nurse Relationship Specialty Start Date End Date Celina Mirza MD 230 [place] [address] PCP - General Family Medicine 07/25/18 Shannan Craft [address] [phone] Sleep Medicine 09/20/24 Yessy Lanier OD [address] [place] [address] Optometry 09/25/24 Justa Lorenzo MD [facility] Rheumatology 06/13/24 Yanelis GEE virtual Psychiatry 02/04/25 Renee GEE 230 [place], [place] Psychology 02/04/25 documented as of this encounter
--- OUTSIDE RECORDS SUMMARY | 2025-03-27 13:12 | XMS_ITS | Encounter Summary ---
Author Organization [employer] Address [address] 7t [place] [address] Care Team Providers Care Middle School Principal Name Role Phone Celina Mirza MD Primary Care Provider +- [phone] Shannan Craft Unavailable [phone] Yessy Lanier OD Unavailable [phone] Reason for Visit * Reason Comments Med Refill Encounter Details Date Type Department Care Team (Late st Contact Info) Description 05/16/2023 Refill [facility] 230 [place] [address] Haylee Parker MD 230 [place] [address] Acute right ankle pain; Acute left ankle [...] Description 08/12/2025 9:00 AM EST Office Visit [facility] OPTOMETRY [address] [place] [address] Yessy Lanier OD 230 [place] [address] documented as of this encounter Visit Diagnoses Diagnosis Acute right ankle pain Acute left ankle pain documented in this encounter Care Teams Middle School Principal Relationship Specialty Start Date End Date Celina Mirza MD 230 [place] [address] PCP - General Family Medicine 07/25/18 Shannan Craft [address] [place] [phone] Sleep Medicine 09/20/24 Yessy Lanier OD [address] [place] [address] Optometry 09/25/24 Justa Lorenzo MD [facility] Rheumatology 06/13/24 Yanelis GEE virtual Psychiatry 02/04/25 Renee GEE 230 [place], [place] Psychology 02/04/25 documented as of this encounter
--- OUTSIDE RECORDS SUMMARY | 2025-03-27 13:12 | XMS_ITS | Encounter Summary ---
Author Organization [employer] Address [address] 7t [place] [address] Care Team Providers Care Retail Service Specialist Name Role Phone Celina Mirza MD Primary Care Provider +1- [phone] Shannan Craft Unavailable [phone] Yannick, Yessy OD Unavailable Reason for Visit * Reason Onset Date Comments Med Refill 06/14/2023 Encounter Details Date Type Department Care Team (Late st Contact Info) Description 06/14/2023 Telephone [facility] 230 [place], [place] [phone] Celina Mirza MD 230 [place], [place] [phone] Med Refill Social History Tobacco Use Types [...] 150 MG capsule to be sent to [facility]/pharmacy #[id number] [place] [address] documented in this encounter Plan of Treatment Upcoming Encounters Date Type Department Care Team (Late st Contact Info) Description 08/12/2025 9:00 AM EST Office Visit [facility] OPTOMETRY 267 [place], [place] [phone] Yannick, Yessy, OD 230 [place] [address] documented as of this encounter Visit Diagnoses Not on filedocumented in this encounter Care Teams Retail Service Specialist Relationship Specialty Start Date End Date Celina Mirza MD 230 [place], [place] [phone] PCP - General Family Medicine 07/25/18 Shannan Craft [address] [phone] Sleep Medicine 09/20/24 Yessy Lanier OD [address] [place] [address] Optometry 09/25/24 Justa Lorenzo MD [facility] Rheumatology 06/13/24 Yanelis GEE virtual Psychiatry 02/04/25 Renee GEE 230 [place], [place] Psychology 02/04/25 documented as of this encounter
--- OUTSIDE RECORDS SUMMARY | 2025-03-27 13:12 | XMS_ITS | Encounter Summary ---
Author Organization [employer] Address [address] [facility] 7t [place] [address] Care Team Providers Care Floor Plan Adjuster Name Role Phone Celina Mirza MD Primary Care Provider +1- [phone] Shannan Craft Unavailable [phone] Yannick, Yessy OD Unavailable [phone] Reason for Visit * Reason Onset Date Comments Med Refill 12/20/2024 Encounter Details Date Type Department Care Team (Late st Contact Info) Description 12/20/[address] [facility] MEDICINE 230 [place], [place] [phone] Celina Mirza MD 230 [place], [place] [phone] Med Refill Social History Tobacco Use Types [...] is your housing situation today? I have adbulaziz guerrero 02/01/[address] you [...] Telephone Encounter - Allyson Navarrete LPN - 12/20/2024 10:39 AM EDT Medication pended to PCP. * Telephone Encounter - Elizabeth Fernandez - 12/20/2024 10:38 AM EDT TC from pt requesting medication refill. Medications needing refill : acetaminophen (Tylenol 8 Hour) 650 MG ER tablet To be sent to: [facility]- [place] - [place], [place] - [address] documented in this encounter Plan of Treatment Upcoming Encounters Date Type Department Care Team (Late st Contact Info) Description 08/12/2025 9:00 AM EST Office Visit [facility] OPTOMETRY [address] [place] [address] Yessy Lanier OD 230 [place] [address] documented as of this encounter Visit Diagnoses Not on filedocumented in this encounter Additional Health Concerns Assessment Noted Time PHQ-9 Depression Total Score: 16 024 11:41 AM EDT documented as of this encounter Care Teams Floor Plan Adjuster Relationship Specialty Start Date End Date Celina Mirza MD 230 [place] [address] PCP - General Family Medicine 07/25/18 Shannan Craft [address] [place] [phone] Sleep Medicine 09/20/24 Yessy Lanier, VIOLA 267 [place] [address] Optometry 09/25/24 Justa Lorenzo MD [facility] Rheumatology 06/13/24 Yanelis GEE virtual Psychiatry 02/04/25 Renee GEE 230 [place], [place] Psychology 02/04/25 documented as of this encounter
--- OUTSIDE RECORDS SUMMARY | 2025-03-27 13:12 | XMS_ITS | Encounter Summary ---
Author Organization [employer] Address [address] 7t [place] [address] Care Team Providers Care Criminal Justice Professor Name Role Phone Celina Mirza MD Primary Care Provider +1- [phone] Shannan Craft Unavailable [phone] Yessy Lanier OD Unavailable [phone] Reason for Visit * Reason Onset Date Comments Med Refill 06/13/2023 Encounter Details Date Type Department Care Team (Late st Contact Info) Description 06/13/2023 Refill [facility] MEDICINE 230 [place], [place] [phone] Cynthia Nowak MD 230 [place], [place] [phone] Influenza-like symptoms Social History Tobacco Use Types [...] Upcoming Encounters Date Type Department Care Team ([facility] st Contact Info) Description 08/12/2025 9:00 AM EST Office Visit [facility] OPTOMETRY [address] [place] [address] Yessy Lanier, VIOLA 230 [place] [address] documented as of this encounter Visit Diagnoses Diagnosis Influenza-like symptoms Other general symptoms documented in this encounter Care Teams Criminal Justice Professor Relationship Specialty Start Date End Date Celina Mirza MD 230 [place] [address] PCP - General Family Medicine 07/25/18 Shannan Craft [address] [place] [phone] Sleep Medicine 09/20/24 Yessy Lanier, OD [address] [place] [address] Optometry 09/25/24 Justa Lorenzo MD [facility] Rheumatology 06/13/24 Yanelis GEE virtual Psychiatry 02/04/25 Renee GEE 230 [place], [place] Psychology 02/04/25 documented as of this encounter
--- OUTSIDE RECORDS SUMMARY | 2025-03-27 13:12 | XMS_ITS | Encounter Summary ---
Author Organization [employer] Address [address] [facility] 7t [place] [address] Care Team Providers Care Mental Health Program Specialist Name Role Phone Celina Mirza MD Primary Care Provider +1- [phone] Shannan Craft Unavailable Yessy Lanier OD Unavailable [phone] Encounter Details Date Type Department Care Team (Late Contact Info) Description 04/25/2023 Orders Only [facility] MEDICINE 230 [place] [address] Celina Mirza MD 230 [place], [place] [phone] Social History Tobacco Use Types Packs/Day Years [...] Description 08/12/2025 9:00 AM EST Office Visit [facility] OPTOMETRY [address] [place] [address] Yessy Lanier, OD 230 [place] [address] documented as of this encounter Visit Diagnoses Not on filedocumented in this encounter Care Teams Mental Health Program Specialist Relationship Specialty Start Date End Date Celina Mirza MD 230 [place] [address] PCP - General Family Medicine 07/25/18 Shannan Craft [address] [place] [phone] Sleep Medicine 09/20/24 Yessy Lanier OD [address] [place] [address] Optometry 09/25/24 Justa Lorenzo MD [facility] Rheumatology 06/13/24 Yanelis GEE virtual Psychiatry 02/04/25 Renee GEE 230 [place], [place] Psychology 02/04/25 documented as of this encounter
--- OUTSIDE RECORDS SUMMARY | 2025-03-27 13:12 | XMS_ITS | Encounter Summary ---
Author Organization [employer] Address [address] [place] [address] Care Team Providers Care Outboard Motor Mechanic Name Role Phone Celina Mirza MD Primary Care Provider [phone]- [phone] Shannan Craft Unavailable Yannick, Yessy OD Unavailable Reason for Visit * Reason Comments Med Refill Encounter Details Date Type Department Care Team (Late st Contact Info) Description 09/13/2024 Refill [facility] MEDICINE [address] [place], [place] [phone] Celina Mirza MD [address] [place], [place] [phone] Gastroesophageal reflux disease, unspecified whether esophagitis present [...] Description 08/12/2025 9:00 AM EST Office Visit [facility] OPTOMETRY [address] [place] [address] Yannick, Yessy, OD [address] [place] [address] documented as of this encounter Visit Diagnoses Diagnosis Gastroesophageal reflux disease, unspecified whether esophagitis present documented in this encounter Additional Health Concerns Assessment Noted Time PHQ-9 Depression Total Score: 16 024 11:41 AM EDT documented as of this encounter Care Teams Outboard Motor Mechanic Relationship Specialty Start Date End Date Celina Mirza MD [address] [place] [address] PCP - General Family Medicine 07/25/18 Shannan Craft [address] [phone] Sleep Medicine 09/20/24 Yessy Lanier OD [address] [place] [phone] Optometry 09/25/24 Justa Lorenzo MD [facility] Rheumatology 06/13/24 Yanelis GEE virtual Psychiatry 02/04/25 Renee GEE [address] [place], [place] Psychology 02/04/25 documented as of this encounter
--- OUTSIDE RECORDS SUMMARY | 2025-03-27 13:12 | XMS_ITS | Encounter Summary ---
Author Organization [employer] Address [address] [facility] [address] [place] [address] Care Team Providers Care Building Maintenance Technician Name Role Phone Celina Mirza MD Primary Care Provider +1- [phone] Shannan Craft Unavailable [phone] Yannick, Yessy OD Unavailable Reason for Visit * Reason Comments Med Change Request Encounter Details Date Type Department Care Team (Late st Contact Info) Description 11/23/2023 Refill [facility] [address] [place], [place] [phone] Celina Mirza MD 230 [place], [place] [phone] Diabetes mellitus without complication (CMS/HCC) Social History [...] Upcoming Encounters Date Type Department Care Team ([facility] st Contact Info) Description 08/12/2025 9:00 AM EST Office Visit [facility] OPTOMETRY [address] [place] [phone] Yessy Lanier, OD [address] [place] [address] documented as of this encounter Visit Diagnoses Diagnosis Diabetes mellitus without complication (CMS/HCC) Type II or unspecified type diabetes mellitus without mention of complication, not stated as uncontrolled documented in this encounter Care Teams Building Maintenance Technician Relationship Specialty Start Date End Date Celina Mirza MD [address] [place] [address] PCP - General Family Medicine 07/25/18 Shannan Craft [address] [phone] Sleep Medicine 09/20/24 Yessy Lanier, OD [address] [place] [phone] Optometry 09/25/24 Justa Lorenzo MD [facility] Rheumatology 06/13/24 Yanelis GEE virtual Psychiatry 7/14/25 Renee GEE [address] [place], [place] Psychology 02/04/25 documented as of this encounter
--- OUTSIDE RECORDS SUMMARY | 2025-03-27 13:12 | XMS_ITS | Encounter Summary ---
Author Organization [employer] Address [address] [facility] [address] [place] [address] Care Team Providers Care Ancillary Services Manager Therapy Name Role Phone Celina Mirza MD Primary Care Provider +- [phone] Shannan Craft Unavailable [phone] Yessy Lanier OD Unavailable [phone] Reason for Visit * Reason Comments Med Refill Encounter Details Date Type Department Care Team (Late st Contact Info) Description 06/13/2023 Refill [facility] [address] [place] [address] Haylee Parker MD [address] [place] [address] Acute right ankle pain; Acute left ankle [...] Description 08/12/2025 9:00 AM EST Office Visit [facility] OPTOMETRY [address] [place] [phone] Yessy Lanier OD 230 [place] [address] documented as of this encounter Visit Diagnoses Diagnosis Acute right ankle pain Acute left ankle pain documented in this encounter Care Teams Ancillary Services Manager Therapy Relationship Specialty Start Date End Date Celina Mirza MD [address] [place] [address] PCP - General Family Medicine 07/25/18 Shannan Craft [address] [place] [phone] Sleep Medicine 09/20/24 Yessy Lanier OD [address] [place] [address] Optometry 09/25/24 Justa Lorenzo MD [facility] Rheumatology 06/13/24 Yanelis GEE virtual Psychiatry 02/04/25 Renee GEE [address] [place], [place] Psychology 02/04/25 documented as of this encounter
--- OUTSIDE RECORDS SUMMARY | 2025-03-27 13:12 | XMS_ITS | Clinical Summary ---
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 Dose increased 06/27/24 90 tablet 3 024 2024 Active cyclobenzaprine (Flexeril) 10 MG tabletIndicatio ns:Fibromyalgia TAKE 1 TABLET BY MOUTH EVERYDAY AT BEDTIME 90 tablet 3 025 Active cholecalciferol (Vitamin D3) 25 MCG (1000 UT) tabletIndicatio ns:Vitamin D deficiency TAKE 1 TABLET BY MOUTH EVERY DAY 90 tablet 3 025 Active pregabalin (Lyrica) 150 MG capsuleIndicati ons:Fibromyalgi a TAKE 1 CAPSULE BY MOUTH TWICE A DAY 60 capsule 025 Active Semaglutide, 2 MG/DOSE, (Ozempic, 2 MG/DOSE,) 8 MG/3ML solution pen-injectorInd ications:Diabet es mellitus without complication (CMS/HCC) INJECT 2MG SUBCUTANEOUSLY ONCE WEEKLY ON THE SAME DAY EVERY WEEK 3 mL 11 025 Active atorvastatin (Lipitor) 20 MG tabletIndicatio ns:Diabetes mellitus without complication (CMS/HCC),Dysli pidemia Take 1 tablet (20 mg) by mouth Once per day. 90 tablet 3 025 Active celecoxib (CeleBREX) 200 MG capsuleIndicati ons:Fibromyalgi a Take 1 capsule by mouth 2 times daily. 024 Active Savella 25 MG tabletIndicatio ns:Fibromyalgia Take 50 mg by mouth 2 times daily. 025 Active propranolol (Inderal) 10 MG tabletIndicatio ns:Mood disorder (CMS/HCC) TAKE 1-2 TABLET BY MOUTH ONCE A DAY NEEDED FOR SOCIAL ANXIETY 024 Active melatonin 3 MG tabletIndicatio ns:Primary insomnia TAKE 1 TABLET BY MOUTH NEEDED FOR INSOMNIA 90 tablet 1 025 Active metFORMIN (Glucophage) 500 MG tabletIndicatio ns:Diabetes mellitus without complication (CMS/HCC) TAKE 1 TABLET BY MOUTH IN THE MORNING AND IN THE EVENING 180 tablet 1 025 Active omeprazole (PriLOSEC) [address] capsuleIndicati ons:Gastroesoph ageal reflux disease, unspecified whether esophagitis present TAKE 1 CAPSULE BY MOUTH EVERY DAY NEEDED 90 capsule 1 025 Active acetaminophen (Tylenol 8 Hour) 650 [...] with Department of Mental Health Applying to [facility] on for assistance with ADL 03/08/24 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 -Stop Trazodone 04/20/24 -Start Topamax 04/20/24 Ds DNA antibody positive 02/08/2024 Overview (04/20/2024): [...] needs to call to reschedule due to Interrelated Special Education Teacher called out. Assessment & Plan (04/20/2024 10:13 [...] needs to call to reschedule due to Interrelated Special Education Teacher called out. Assessment & Plan (03/08/2024 5:40 PM EDT): -Given family history of rheumatological disease and exacerbation of symptoms, rheumatological labs ordered. Anti DS DNA intermediate, will recheck. Assessment & Plan (02/08/2024 1:21 PM EDT): Given family history of rheumatological disease and exacerbation of symptoms, rheumatological labs ordered. Anti DS DNA positive. Will refer to rheumatology for evaluation. Preventative health care 07/08/2022 Overview (02/04/2025): -next physical exam due after 02/04/26 -eye care facilitated by [facility], pt will schedule an appt -health care proxy given 02/01/24, filed 04/20/24 Assessment & Plan (02/04/2025 10:21 AM EDT): -next physical exam due after 02/04/26 -eye care facilitated by [facility], pt will schedule an appt -health care proxy given 02/01/24, filed 04/20/24 Assessment & Plan (02/01/2024 11:25 AM EDT): -next physical exam due after 01/31/25 -eye care facilitated by [facility], pt will schedule an appt -health care [...] 05/14/2020 -consider fish oil Assessment & Plan (02/04/2025 10:21 AM EDT): Orders: atorvastatin (Lipitor) 20 MG tablet; Take 1 tablet (20 mg) by mouth Once per day. Assessment & Plan (03/08/2024 5:40 PM EDT): [...] FLP in 3 months Fibromyalgia 01/05/2022 Overview (12/10/2024): Pt has chronic pain syndrome. Work up [...] day Exercise: Patient lives close to the [facility]. She has to go there at least twice a week in the pool since the children are in school now. Also recommended stretches in the evenings when she takes her warm showers. Also recommended 10-20 minutes of [employer] fibromyalgia stressors twice a day. Sleep: Encouraged good sleep hygiene. We will consider sleep apnea testing in the future Counseling: Counseled patient on the diagnosis of fibromyalgia all questions answered -note from rheum Justa Lorenzo from 12/08/24 revewied Patient is a 34-year-old female with fibromyalgia here today for follow up. Has not had a good trial of the medications so we will need to follow up again in 6 months to review efficacy. Doing better with sleep and weight loss. Again encouraged regular stretching (twice a day) Plan - Pregabalin to 25 mg b.i.d. - Celebrex 200 mg b.i.d. - Milnacipran 50 mg b.i.d. - RTC 6 months Assessment & Plan (02/04/2025 10:21 AM EDT): Pt has chronic pain syndrome. Work [...] day Exercise: Patient lives close to the [facility]. She has to go there at least twice a week in the pool since the children are in school now. Also recommended stretches in the evenings when she takes her warm showers. Also recommended 10-20 minutes of [employer] fibromyalgia stressors twice a day. Sleep: Encouraged good sleep hygiene. We will consider sleep apnea testing in the future Counseling: Counseled patient on the diagnosis of fibromyalgia all questions answered -note from rheum Justa Lorenzo from 12/08/24 revewied Patient is a 34-year-old female with fibromyalgia here today for follow up. Has not had a good trial of the medications so we will need to follow up again in 6 months to review efficacy. Doing better with sleep and weight loss. Again encouraged regular stretching (twice a day) Plan - Pregabalin to 25 mg b.i.d. - Celebrex 200 mg b.i.d. - Milnacipran 50 mg b.i.d. - RTC 6 months Assessment & Plan (03/08/2024 5:39 PM EDT): [...] of adult 01/05/2022 Overview (09/20/2024): -Followed by [facility]. Note from ALFREDO Lester 09/20/24 reviewed -Moderate SALOMÓN on sleep study 06/2016 on CPAP, has supplies -PSG completed 09/2020 showed mild SALOMÓN -continue APAP 5-15 cmH2O Assessment & Plan (03/08/2024 5:37 PM EDT): -Followed by [facility] -Moderate SALOMÓN on sleep study [...] f/u with PCP Mood disorder 12/20/2017 Overview (02/04/2025): Followed by therapist and psychiatrist with N. Denies suicidial or homacidial ideation. Assessment & Plan (02/04/2025 10:21 AM EDT): Followed by therapist and psychiatrist with N. Denies suicidial or homacidial ideation. Assessment & Plan (04/20/2024 10:22 AM EDT): -sees psychiatrist, but will be switching to a new one since her current psychiatrist is leaving -established at [facility] in [place]. Assessment & Plan (02/01/2024 11:26 AM EDT): -sees psychiatrist, but will be switching to a new one since her current psychiatrist is leaving Type 2 diabetes mellitus wit hout complication, without long-term current use of insulin 08/17/2017 Overview (02/04/2025): Diabetes is controlled. Lab Results Component Value Date HGBA1C 5.5 02/04/2025 HGBA1C 6.1 (A) 05/23/2024 HGBA1C 5.8 02/02/2024 Lab Results Component Value Date CREATININE 1.13 02/02/2024 EGFR 55 02/02/2024 MICROALBCREU 13.0 04/09/2024 MICROALBCREU 51.2 (H) 02/02/2024 LDLCHOLCAL 56 02/02/2024 -Kendrick/Arb: will discuss after family planning discussion given risk of kendrick on -Statin therapy: atorvastatin 20mg started 04/2020 -Diabetic eye exam: per [facility] eye -Diabetic foot exam: done 02/01/24 -Continue lifestyle modifications -Continue current medications -Ozempic restarted 11/21/23 at 0.5mg subcutaneously weekly -Ozempic increased 11/23/23 to 0.75ml (1mg) weekly -Ozempic increased 02/01/24 to 2mg weekly she just restarted and has been taking 2 weeks, cannot get refills due to back ordered 05/23/24 Assessment & Plan (02/04/2025 10:21 AM EDT): Diabetes is controlled. Lab Results Component Value Date HGBA1C 5.5 02/04/2025 HGBA1C 6.1 (A) 05/23/2024 HGBA1C 5.8 02/02/2024 Lab Results Component Value Date CREATININE 1.13 02/02/2024 EGFR 55 02/02/2024 MICROALBCREU 13.0 04/09/2024 MICROALBCREU 51.2 (H) 02/02/2024 LDLCHOLCAL 56 02/02/2024 -Kendrick/Arb: will discuss after family planning discussion given risk of kendrick on -Statin therapy: atorvastatin 20mg started 04/2020 -Diabetic eye exam: per [facility] eye -Diabetic foot exam: done 02/01/24 -Continue lifestyle modifications -Continue current medications -Ozempic restarted 11/21/23 at 0.5mg subcutaneously weekly -Ozempic increased 11/23/23 to 0.75ml (1mg) weekly -Ozempic increased 02/01/24 to 2mg weekly she just restarted and has been taking 2 weeks, cannot get refills due to back ordered 05/23/24 Orders: POCT Glucose POCT HGB A1C Albumin, Random Urine W/Creatinine; Future Hepatic Function Panel; Future Lipid Panel, Standard; Future Basic Metabolic Panel; Future HEPATITIS A VACCINE ADULT 19 yrs + Assessment & Plan (06/27/2024 11:46 AM EST): [...] 20mg started 04/2020 -Diabetic eye exam: per [facility] eye -Diabetic foot exam: done 02/01/24 [...] 20mg started 04/2020 -Diabetic eye exam: per [facility] eye -Diabetic foot exam: done 02/01/24 [...] 20mg started 04/2020 -Diabetic eye exam: per [facility] eye -Diabetic foot exam: done 02/01/24 [...] 20mg started 04/2020 -Diabetic eye exam: per [facility] eye -Diabetic foot exam: done 02/01/24 [...] A1c; Future - Starting Trulicity today. 08/12/2022.. Anxiety 02/07/2013 Agoraphobia 05/03/2012 Class 3 severe obesity with serious comorbidity in adult 05/03/2012 Overview (02/04/2025): Baseline weight 269lbs 02/2023 Has lost 53 lbs or 20% of body weight over 2 years as of 01/2025 BMI Readings from Last 3 Encounters: 02/04/25 39.51 kg/m 06/27/24 44.45 kg/m 06/13/24 47.08 kg/m Wt Readings from Last 3 Encounters: 02/04/25 216 lb (98 kg) 06/27/24 243 lb (110 kg) 06/13/24 257 lb 6.4 oz (117 kg) -Ozempic restarted 11/21/23 -Ozempic increased 11/23/23 to 0.75ml (1mg) weekly -Ozempic increased 02/01/24 to 2mg weekly she just restarted and has been taking 2 weeks, cannot get refills due to back ordered 05/23/24 Assessment & Plan (06/27/2024 11:47 AM EST): [...] Problem Noted Date Diagnosed Date Resolved Date 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 Assessment & Plan (05/23/2024 11:46 AM EDT): Resolved. 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 Discussed to call medical records. 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 Discussed to call medical records. Microalbuminuria 03/08/2024 02/04/2025 Overview (03/08/2024): -microalbumin to creatinine ratio was [...] an KENDRICK inhibitor. Pain of foot 03/08/2024 02/04/2025 Physical exam 02/01/2024 02/04/2025 COVID 06/13/2023 03/08/2024 Assessment & Plan (06/13/2023 3:13 PM EST): Drink plenty of fluids and rest If SOB, confusion, chest pain got to the emergency room or call ambulance SHYANNE Migraine 03/23/2023 02/04/2025 Overview (07/04/2024): -Will trial 25mg amitriptyline 03/23/2023. Assessment & Plan (03/23/2023 1:06 PM EDT): Will trial 25mg amitriptyline 03/23/2023. Bilateral ankle pain 03/23/2023 025 Overview (03/23/2023): Referral to PT 03/23/2023 - no fracture on xray Assessment & Plan (03/23/2023 1:06 PM EDT): Referral to PT 03/23/2023 - no fracture on xray Acute right ankle pain 03/04/202302/04 Assessment & Plan (03/04/2023 3:19 PM EDT): Elevate ankles apply ice and rest Left ankle pain 03/04/2023 02/04/2025 Overview (01/19/2024): Seen by ortho 01/05/24 Infected abrasion of great toe of right foot 3 04/25/2023 Assessment & Plan (10/06/2022 10:10 AM [...] COVID test given. F/u if symptoms worsen. Right knee pain 07/12/2022 02/04/2025 Dermatitis 07/12/2022 02/04/2025 Physical exam 07/08/2022 07/08/2022 Myositis 05/12/2014 02/04/2025 Chronic headache disorder 05/04/2012 Steatosis of liver 05/04/2012 Encounters Date Type Department Care Team Description 03/08/2025 Refill [facility] [address] [place] [address] Celina Mirza MD Pain 02/12/2025 Refill [facility] [address] [place] [address] Celina Mirza MD Pain; Primary insomnia; Diabetes mellitus without complication ([facility]); Gastroesophageal reflux disease, unspecified whether esophagitis present 02/04/2025 9:45 AM EDT Office Visit [facility] [address] [place] [address] Celina Mirza MD Preventative health care (Primary Dx); Type 2 diabetes mellitus without complication, without long-term current use of insulin ([facility]); Dietary counseling; Exercise counseling; Class 3 severe obesity due to excess calories with serious comorbidity and body mass index (BMI) of 40.0 to 44.9 in adult; Encounter for immunization; Diabetes mellitus without complication (CMS/HCC); Dyslipidemia; Mood disorder ([facility]); Pain; Fibromyalgia 02/04/2025 Travel 02/01/2025 Telephone [facility] [address] [place], [place] [id number] Celina Mirza MD chart prep 01/15/2025 Refill [facility] [address] [place] [address] Celina Mirza MD Pain from Last 3 Months Immunizations Immunization Administration Dates Next Due DTaP 12/02/1992, 2,1988,1988 HPV, Quadrivalent 06/13/2008,03/14/2008,08/30/19 08 Hep A, Adult 02/04/2025,02/01/2024 Hep B, Adolescent or Pediatric 10/09/1996,1995,03/05/1996 Hib ([facility]) 01/04/1992 IPV 12/03/1992, 2,1988,1987 Influenza injectable quadriv alent IIV4 with preservative 04/05/2019,04/15/2016 Influenza injectable quadriv alent preservative free 04/01/2022,04/30/2021,05/23/2020,2016,04/16/2015 Influenza, IIV3, injectable 04/10/2014 Influenza, Split (incl. cassia fied surface antigen) 05/02/2013,05/04/2012 Influenza, seasonal, injecta ble, preservative free 04/09/2024 MMR 12/03/1992,07/01/1989 Pfizer Covid-19 Vaccine 12+ 04/23/2024, 1,04/24/2021 Pneumococcal Conjugate PCV 20 02/01/2024 Rubella 11/23/2012 [...] Answer Date Recorded Patient Health Questionnaire-9 Score 17 02/04/2025 Patient Health Questionnaire-9 Score 17 02/04/2025 Last PHQ-9: Questionnaire Data Not on file 0 02/04/2025 Housing Stability Answer Date Recorded What is your housing situation today? I have abdulaziz guerrero 02/04/[address] you li ve. Do you have problems with any of the following? None of the above 02/04/2025 Food Insecurity Answer Date Recorded Within the past 12 months, y ou worried that your food would run out before you got money to buy more: Never True 02/04/2025 Within the past 12 months,th e food you bought just didn't last and you didn't have enough money to get more: Never True Transportation Answer Date Recorded In the past 12 months, has l ack of transportation kept you from medical appts, meetings, work or from getting things needed for daily living? No 02/04/2025 Utilities Answer Date Recorded In the past 12 months, has t he electric, gas, oil or water company threatened to shut off services in your home? No 02/04/2025 Depression Answer Date Recorded Patient Health Questionnaire-2 Score 5 02/04/2025 Internet Access Answer Date Recorded Internet Access Q1 Yes 02/04/2025 Internet Access Q2 Not on file 02/04/2025 Comments No Sex and Gender Information Value Date Recorded Sex Assigned at Female 05/24/2022 10:17 AM EDT Legal Sex Female 10:17 AM EDT Gender Identity Female 05/24/2022 10:17 AM EDT Sexual Orientation Straight 05/24/2022 10 :17 AM EDT Last Filed Vital Signs Vital Sign Reading Time Taken Comments Blood Pressure 137/82 02/04/2025 9:53 AM EDT Pulse 115 02/04/2025 9:53 AM EDT Temperature 35.5 C (95.9 F) 06/27/2024 11:20 AM EST Respiratory Rate 16 02/04/2025 9:53 AM EDT Oxygen Saturation 98% 06/27/2024 11:20 AM EST Inhaled Oxygen Concentration - - Weight 98 kg (216 lb) 02/04/2025 9:53 AM EDT Height 157.5 cm (5' 2 ) 02/04/2025 9:53 AM EDT Body Mass Index 39.51 02/04/2025 9:53 AM EDT Plan of Treatment Upcoming Encounters Date Type Department Care Team (Late st Contact Info) Description 08/12/2025 9:00 AM EST Office Visit [facility] [address] [place] [address] Yannick, Yessy, OD [address] [place] [address] Health Maintenance Due Date Last Done Comments Alcohol/Substance Use Screening 2000 Lipid Panel 02/01/2025 02/02/2024, 05/0 01/2024, 07/12/2022, Additional history exists Influenza Vaccine (#1) 2025 , 04/01/2022, 04/30/2021, Additional history exists Diabetes: Urine Protein Screening 04/09/2025 04/09/2024, 02/02/2024, 01/12/2022 Family Planning (PISQ) 04/20/2025 04/20/2024 Diabetes: Hemoglobin A1C 05/07/2025 025, 05/23/2024, 02/02/2024, Additional history exists Depression Monitoring 08/07/2025 02/04/2025, 025 Diabetes: Foot Exam 02/04/2026 02/04/2025, 02/04/2025, 02/04/2025, Additional history exists Disability Screening 02/04/2026 02/04/2025 SDOH Screening 02/04/2026 02/04/2025 Tobacco Screening 02/04/2026 02/04/2025 Eye Exam 05/30/2026 05/30/2024, 1112/2023, 05/30/2024, Additional history exists Pap Smear 04/20/2027 [...] Years) and At-Risk Patients (6 to 49) Years Completed 02/01/2024 COVID-19 Vaccine Completed 04/23/2024, , 04/24/2021 HIV Screening Completed 11/27/2024, 06/24, 01/12/2022 Hepatitis A Vaccines Aged Out 02/04/2025, 02/01/20 24 No longer eligible based on patient's age to complete this topic Meningococcal B Vaccine Aged Out No l onger eligible based on patient's age to complete this topic Meningococcal Vaccine Aged Out No emmanuel cherry eligible based on patient's age to complete this topic RSV under 20 months Aged Out No longe r eligible based on patient's age to complete this topic Rotavirus Vaccines Aged Out No longer eligible based on patient's age to complete this topic Procedures Procedure Name Priority Date/Time Associated Diagnosis Comments POCT GLYCATED HEMOGLOBIN, TOTAL Routine 02/04/2025 9:56 AM EDT Type 2 diabetes mellitus without complication, without long-term current use of insulin (CMS/HCC) POCT GLUCOSE Routine 02/04/2025 9:56 AM EDT Type 2 diabetes mellitus without complication, without long-term current use of insulin (CMS/HCC) HIV 1/2 ANTIGEN/ANTIBODY, FOURTH GENERATION W/RFL Routine 11/27/2024 8:43 AM EDT Routine screening for STI (sexually transmitted infection) THINPREP IMAGING PAP AND HPV MRNA E6/E7 Routine 04/20/2024 12:00 AM EDT ALBUMIN, RANDOM URINE W/CREATININE Routine 04/09/2024 1:33 PM EDT Microalbuminuria LIPID PANEL, STANDARD Routine 02/02/2024 9:50 AM EDT Diabetes mellitus without complication (CMS/HCC) HEPATITIS C AB W/REFL TO HCV RNA, QN, PCR Routine 07/12/2022 10:08 AM EST Fibromyalgia from Last 3 Months or Most Recently Relevant to Health Maintenance Results * POCT HGB A1C (02/04/2025 9:56 AM EDT) Hemoglobin A1C 5.5 4.0 - 5.7 % QC Media Lot # [id number] Lot# Expiration Date Blood 02/04/2025 9:56 AM EDT Celina Mirza MD POINT OF CARE TEST ENTER/E DIT ORDERABLES Final Result * POCT Glucose (02/04/2025 9:56 AM EDT) Glucose Blood, POC 96 60 - 200 mg/dL QC Media Lot # [id number] Lot# Expiration Date Blood Capillary blood specimen / Unknown 02/04/2025 9:56 AM EDT Celina Mirza MD POINT OF CARE TEST ENTER/E DIT ORDERABLES Final Result * HIV-1/2 Antigen and Antibodies, Fourth Generation, with Reflexes (11/27/2024 8:43 AM EDT) HIV AB/AG Nonreactive Nonreactive [facility] Comment:HIV-1 p24 Ag and/or HIV-1/HIV-2 Ab not detected.A test result that is nonreactive does not exclude thepossibility of exposure to or infection with HIV-1 and/orHIV-2. Nonreactive results in this assay for individualswith prior exposure to HIV-1 and/or HIV-2 may be due toantigen and antibody levels that are below the limit ofdetection of this assay.The [employer]ot[employer] HIV Ag/Ab Combo assay result andsupplemental assay results should be interpreted inconjunction with the patient's clinical presentation,history and other laboratory results. If the results areinconsistent with clinical evidence, additional testing issuggested to confirm the result. Blood Venous blood specimen / Unknown 11/27/2024 8:43 AM EDT 11/27/2024 11:07 AM EDT Celina Mirza MD LAB BLOOD ORDERABLES Final Result [facility] [address] [place] [phone] * ThinPrep Imaging Pap and HPV mRNA E6/E7 (04/20/2024 12:00 AM EDT) HPV nRNA E6/E7 Not Detected [facility] Comment:REFERENCE RANGE: Not DetectedMethodology: Fish Hatchery Manager-Mediated AmplificationThis assay detects E6/E7 viral messenger RNA (mRNA) from 14high- risk HPV types(16,18,31,33,35,39,45,51,52,56,58,59,66,68).Cervical sources are required for HPV testing.If a vaginal source from a patient who has had atotal hysterectomy with removal of cervix wassubmitted, please contact the testing laboratoryfor alternative testing options.For additional information, please refer [email or web address]/faq/WAD791r6(This link if provided for information/educational purposes only.)THIS TEST PERFORMED AT:[employer] [address] [phone] DIRECTOR: AMISH BORGES MD SOURCE: Cervix [facility] Report Status: [facility] Clinical Information: None given [facility] LMP: NONE GIVEN [facility] Prev. PAP: NONE GIVEN [facility] Prev. BX: NONE GIVEN [facility] Statement Of Adequacy: SEE NOTE [facility] Comment:Satisfactory for charu luation.Endocervical/transformation zone componentpresent. General Categorization: [facility] Interpretation/Result: SEE NOTE [facility] Comment:Cytology Results: Ne gative for intraepitheliallesion or malignancy. Cytology Comment SEE NOTE [facility] Comment:This Pap test has be en evaluated with computerassisted technology. Printed Circuit Board Layout Designer: SEE NOTE [facility] Comment:RPR, CT (ASCP) CT sc reening location:[address] [address] Review [employer]ed Circuit Board Layout Designer: [facility] Pathologist [facility] PAP Infection SEE NOTE [facility] Comment:Shift in vaginal vanda ra suggestive of bacterialvaginosis. See Note EXPLANATORY NOTE [facility] Comment:The Pap is a screeni ng test for cervical cancer. It isnot a diagnostic test and is subject to false negativeand false positive results. It is most reliable when asatisfactory sample, regularly obtained, is submittedwith relevant clinical findings and history, and whenthe Pap result is evaluated along with historic andcurrent clinical information.THIS TEST PERFORMED AT:[employer] [address] [phone] DIRECTOR: AMISH BORGES MD 04/20/2024 04/20/2024 Narrative [facility] - 05/02/2024 1:29 PM EDT SEE SCANNED RESULTS IN EMR Celina Mirza MD LAB PATHOLOGY ORDERABLES F inal Result Performing Organization Address [facility] Phone Number [facility] [address] [place], [place] [phone] * Albumin, Random Urine W/Creatinine (04/09/2024 1:33 PM EDT) Creatinine, Urine 191.67 mg/dL [facility] Microalbumin Urine 25.0 mg/L [facility] Microalbum Creatinine Ratio Ur 13.0 <30 ug/mg cr [facility] Comment:Albumin/Creatinine R atio Reference Ranges: Normal: < 30 ug/mg creatinine Microalbuminuria: 30 - 300 ug/mg creatinineClinical Albuminuria: > 300 ug/mg creatinine Urine 04/09/2024 1:33 PM EDT 04/09/2024 3:55 PM EDT Celina Mirza MD LAB URINE ORDERABLES Final Result Performing Organization Address [facility] Phone Number [facility] [address] [place] [phone] * (ABNORMAL) Lipid Panel, Standard (02/02/2024 9:50 AM EDT) Triglycerides 280(H) <150 mg/dL [facility] Comment:Desirable Triglyceri de: less than 150 mg/dLBorderline High Triglyceride 150-199 mg/dLHigh Triglyceride: 200-499 mg/dLVery High Triglyceride: greater than or equal to 5OO mg/dL Cholesterol 150 <200 mg/dL [facility] Comment:Desirable Cholestero l: less than 200 mg/dLBorderline High Cholesterol: 200-239 mg/dLHigh Cholesterol: greater than 239 mg/dL LDL Cholesterol Calculated 56 <100 mg/dL [facility] Comment:Desirable LDL: less than 100 mg/dLNear Optimal/Above Optimal LDL: 110- 129 mg/dLBorderline High LDL: 130-159 mg/dLHigh LDL: 160-189 mg/dLVery High LDL: greater than or equal to 190 mg/dL HDL Cholesterol 38(L) >40 mg/dL [facility] Comment:Desirable HDL: great er than 40 mg/dL Note: This HDL assay may give artificially low results in patients with liver disease. Blood Venous blood specimen / Unknown 02/02/2024 9:50 AM EDT 02/02/2024 11:33 AM EDT Celina Mirza MD LAB BLOOD ORDERABLES Final Result Performing Organization Address City/[facility]/ZIP Co de Phone Number [facility] [address] [place] [address] [phone] * Hepatitis C Antibody with Reflex to HCV, RNA, Quantitative, Real-Time PCR (07/12/2022 10:08 AM EST) Hepatitis C Antibody NON-REACT TERRIE NON-REACT TERRIE [facility] Index 0.10 <1.00 [facility] Comment: HCV antibody was non-reactive. There is no laboratory evidence of HCV infection. In most cases, no further action is required. However, if recent HCV exposure is suspected, a test for HCV RNA (test code 42241) is suggested. For additional information please refer to http://education.Quaero/faq/XCQ88c9 (This link is being provided for informational/ educational purposes only.) Blood Venous blood specimen / Unknown 07/12/2022 10:08 AM EST 07/12/2022 10:08 AM EST Narrative [facility] - 07/15/2022 7:08 PM EST FASTING:YES FASTING: YES Celina Mirza MD LAB BLOOD ORDERABLES Final Result [facility] [address] [place] [address], [place] [address] Verican [address] [facility], (Nl2) [place] [address] from Last 3 Months or Most Recently Relevant to Health Maintenance Insurance [facility] C3 Advance Directives Documents on File Type Date Recorded 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
--- OUTSIDE RECORDS SUMMARY | 2025-03-27 13:12 | XMS_ITS | Encounter Summary ---
Author Organization [employer] Address [address] [facility] [address] 7t [place] [address] Care Team Providers Care Training And Development Professional Name Role Phone Celina Mirza MD Primary Care Provider +1- [phone] Shannan Craft Unavailable Yannick, Yessy OD Unavailable Reason for Visit * Reason Comments Med Refill Encounter Details Date Type Department Care Team (Late st Contact Info) Description 07/20/2023 Refill [facility] MEDICINE 230 [place], [place] [phone] Celina Mirza MD 230 [place], [place] [phone] Other migraine without status migrainosus, not intractable [...] Description 08/12/2025 9:00 AM EST Office Visit [facility] OPTOMETRY [address] [place] [address] Yessy Lanier OD 230 [place] [address] documented as of this encounter Visit Diagnoses Diagnosis Other migraine without status migrainosus, not intractable documented in this encounter Care Teams Training And Development Professional Relationship Specialty Start Date End Date Celina Mirza MD 230 [place] [address] PCP - General Family Medicine 07/25/18 Shannan Craft [address] [place] [phone] Sleep Medicine 09/20/24 Yessy Lanier OD [address] [place] [address] Optometry 09/25/24 Justa Lorenzo MD [facility] Rheumatology 06/13/24 Yanelis GEE virtual Psychiatry 02/04/25 Renee GEE 230 [place], [place] Psychology 02/04/25 documented as of this encounter
--- OUTSIDE RECORDS SUMMARY | 2025-03-27 13:12 | XMS_ITS | Encounter Summary ---
Author Organization [employer] Address [address] [facility] [address] 7t [place] [address] Care Team Providers Care Corporate Planner Name Role Phone Celina Mirza MD Primary Care Provider +- [phone] Shannan Craft Unavailable [phone] Yessy Lanier OD Unavailable [phone] Reason for Visit * Reason Comments Med Refill Encounter Details Date Type Department Care Team (Late st Contact Info) Description 08/08/2023 Refill [facility] 230 [place], [place] [phone] Haylee Parker MD 230 [place], [place] [phone] Acute right ankle pain; Acute left ankle [...] Description 08/12/2025 9:00 AM EST Office Visit [facility] OPTOMETRY [address] [place] [address] Yessy Lanier OD 230 [place] [address] documented as of this encounter Visit Diagnoses Diagnosis Acute right ankle pain Acute left ankle pain documented in this encounter Care Teams Corporate Planner Relationship Specialty Start Date End Date Celina Mirza MD 230 [place] [address] PCP - General Family Medicine 07/25/18 Shannan Craft [address] [place] [phone] Sleep Medicine 09/20/24 Yessy Lanier OD [address] [place] [address] Optometry 09/25/24 Justa Lorenzo MD [facility] Rheumatology 06/13/24 Yanelis GEE virtual Psychiatry 02/04/25 Renee GEE 230 [place], [place] Psychology 02/04/25 documented as of this encounter
--- OUTSIDE RECORDS SUMMARY | 2025-03-27 13:12 | XMS_ITS | Encounter Summary ---
Author Organization [employer] Address [address] [facility] [address] 7t [place] [address] Care Team Providers Care Tree Trimmer Helper Name Role Phone Celina Mirza MD Primary Care Provider +1- [phone] Shannan Craft Unavailable Yannick, Yessy OD Unavailable [phone] Reason for Visit * Reason Comments Med Refill Encounter Details Date Type Department Care Team (Late st Contact Info) Description 10/23/2024 Refill [facility] MEDICINE 230 [place], [place] [phone] Celina Mirza MD 230 [place], [place] [phone] Diabetes mellitus without complication ([facility]) Social History Tobacco Use Types Packs/Day Years [...] Description 08/12/2025 9:00 AM EST Office Visit [facility] OPTOMETRY [address] [place] [address] Yessy Lanier, VIOLA 230 [place] [address] documented as of this encounter Visit Diagnoses Diagnosis Diabetes mellitus without complication ([facility]) Type II or unspecified type diabetes mellitus without mention of complication, not stated as uncontrolled documented in this encounter Additional Health Concerns Assessment Noted Time PHQ-9 Depression Total Score: 16 024 11:41 AM EDT documented as of this encounter Care Teams Tree Trimmer Helper Relationship Specialty Start Date End Date Celina Mirza MD 230 [place] [address] PCP - General Family Medicine 07/25/18 Shannan Craft [address] [phone] Sleep Medicine 09/20/24 Yessy Lanier OD [address] [place] [address] Optometry 09/25/24 Justa Lorenzo MD [facility] Rheumatology 06/13/24 Yanelis GEE virtual Psychiatry 02/04/25 Renee GEE 230 [place], [place] Psychology 02/04/25 documented as of this encounter
--- OUTSIDE RECORDS SUMMARY | 2025-03-27 13:12 | XMS_ITS | Encounter Summary ---
Author Organization [employer] Address [address] [facility] [address] 7t [place] [address] Care Team Providers Care Tire Building Supervisor Name Role Phone Celina Mirza MD Primary Care Provider +1- [phone] Shannan Craft Unavailable [phone] Yessy Lanier OD Unavailable [phone] Reason for Visit * Reason Comments Med Refill Encounter Details Date Type Department Care Team ([facility] st Contact Info) Description 06/13/2023 Refill [facility] MEDICINE 230 [place], [place] [phone] Cynthia Nowak MD 230 [place], [place] [phone] Fibromyalgia Social History Tobacco Use Types Packs/Day [...] Upcoming Encounters Date Type Department Care Team ([facility] st Contact Info) Description 08/12/2025 9:00 AM EST Office Visit [facility] OPTOMETRY [address] [place] [address] Yessy Lanier OD 230 [place] [address] documented as of this encounter Visit Diagnoses Diagnosis Fibromyalgia Unspecified myalgia and myositis documented in this encounter Care Teams Tire Building Supervisor Relationship Specialty Start Date End Date Celina Mirza MD [address] [place] [address] PCP - General Family Medicine 07/25/18 Shannan Craft [address] [place] [phone] Sleep Medicine 09/20/24 Yessy Lanier OD [address] [place] [address] Optometry 09/25/24 Justa Lorenzo MD [facility] Rheumatology 06/13/24 Yanelis GEE virtual Psychiatry 02/04/25 Renee GEE 230 [place], [place] Psychology 02/04/25 documented as of this encounter
--- OUTSIDE RECORDS SUMMARY | 2025-03-27 13:12 | XMS_ITS | Encounter Summary ---
Author Organization [employer] Address 75 [facility] 7t [place] [address] Care Team Providers Care Regrader Name Role Phone Celina Mirza MD Primary Care Provider +- [phone] Shannan Craft Unavailable Yessy Lanier OD Unavailable Reason for Visit * Reason Comments Med Refill Encounter Details Date Type Department Care Team (Late Contact Info) Description 04/22/2023 Refill [facility] 230 [place] [address] Haylee Parker MD 230 [place] [address] Acute right ankle pain; Acute left ankle [...] Description 08/12/2025 9:00 AM EST Office Visit [facility] [address] [place] [address] Yessy Lanier, OD 230 [place] [address] documented as of this encounter Visit Diagnoses Diagnosis Acute right ankle pain Acute left ankle pain documented in this encounter Care Teams Regrader Relationship Specialty Start Date End Date Celina Mirza MD 230 [place] [address] PCP - General Family Medicine 07/25/18 Shannan Craft [address] [phone] Sleep Medicine 09/20/24 Yessy Lanier, OD 267 [place] [address] Optometry 09/25/24 Justa Lorenzo MD [facility] Rheumatology 06/13/24 Yanelis GEE virtual Psychiatry 02/04/25 Renee GEE 230 [place], [place] Psychology 02/04/25 documented as of this encounter
--- OUTSIDE RECORDS SUMMARY | 2025-03-27 13:12 | XMS_ITS | Encounter Summary ---
Author Organization [employer] Address [address] [facility] [address] 7t [place] [address] Care Team Providers Care Flower Cutter Name Role Phone Celina Mirza MD Primary Care Provider +1- [phone] Shannan Craft Unavailable Yannick Yessy OD Unavailable Reason for Visit * Reason Comments Med Refill Encounter Details Date Type Department Care Team (Late st Contact Info) Description 12/23/2023 Refill [facility] MEDICINE 230 [place], [place] [phone] Celina Mirza MD 230 [place], [place] [phone] Gastroesophageal reflux disease, unspecified whether esophagitis present [...] 08/12/2025 9:00 AM EST Office Visit [facility] OPTOMETRY [address] [place] [address] Yessy Lanier OD 230 [place] [address] documented as of this encounter Visit Diagnoses Diagnosis Gastroesophageal reflux disease, unspecified whether esophagitis present documented in this encounter Care Teams Flower Cutter Relationship Specialty Start Date End Date Celina Mirza MD 230 [place] [address] PCP - General Family Medicine 07/25/18 Shannan Craft [address] [place] [phone] Sleep Medicine 09/20/24 Yessy Lanier OD [address] [place] [address] Optometry 09/25/24 Justa Lorenzo MD [facility] Rheumatology 06/13/24 Yanelis GEE virtual Psychiatry 02/04/25 Renee GEE 230 [place], [place] Psychology 02/04/25 documented as of this encounter
--- OUTSIDE RECORDS SUMMARY | 2025-03-27 13:12 | XMS_ITS | Encounter Summary ---
Author Organization [employer] Address [address] [facility] [address] 7t [place] [address] Care Team Providers Care Goat Driver Name Role Phone Celina Mirza MD Primary Care Provider +- [phone] Shannan Craft Unavailable [phone] Yessy Lanier OD Unavailable [phone] Reason for Visit * Reason Comments Med Refill Encounter Details Date Type Department Care Team (Late st Contact Info) Description 10/26/2023 Refill [facility]ALK[facility] 230 [place], [place] [phone] Haylee Parker MD 230 [place], [place] [phone] Acute right ankle pain; Acute left ankle [...] Description 08/12/2025 9:00 AM EST Office Visit [facility] OPTOMETRY [address] [place] [address] Yessy Lanier OD 230 [place] [address] documented as of this encounter Visit Diagnoses Diagnosis Acute right ankle pain Acute left ankle pain documented in this encounter Care Teams Goat Driver Relationship Specialty Start Date End Date Celina Mirza MD 230 [place] [address] PCP - General Family Medicine 07/25/18 Shannan Craft [address] [place] [phone] Sleep Medicine 09/20/24 Yessy Lanier OD [address] [place] [address] Optometry 09/25/24 Justa Lorenzo MD [facility] Rheumatology 06/13/24 Yanelis GEE virtual Psychiatry 02/04/25 Renee GEE 230 [place], [place] Psychology 02/04/25 documented as of this encounter
--- OUTSIDE RECORDS SUMMARY | 2025-03-27 13:12 | XMS_ITS | Encounter Summary ---
Author Organization [employer] Address [address] [facility] [address] 7t [place] [address] Care Team Providers Care Welfare Director Name Role Phone Celina Mirza MD Primary Care Provider +1- [phone] Shannan Craft Unavailable Yannick, Yessy OD Unavailable Reason for Visit * Reason Comments Med Refill Encounter Details Date Type Department Care Team (Late st Contact Info) Description 11/21/2024 Refill [facility] MEDICINE 230 [place], [place] [phone] Celina Mirza MD 230 [place], [place] [phone] Diabetes mellitus without complication ([facility]) Social History Tobacco Use Types Packs/Day Years [...] Description 08/12/2025 9:00 AM EST Office Visit [facility] OPTOMETRY [address] [place] [address] Yessy Lanier, VIOLA 230 [place] [address] documented as of this encounter Visit Diagnoses Diagnosis Diabetes mellitus without complication ([facility]) Type II or unspecified type diabetes mellitus without mention of complication, not stated as uncontrolled documented in this encounter Additional Health Concerns Assessment Noted Time PHQ-9 Depression Total Score: 16 024 11:41 AM EDT documented as of this encounter Care Teams Welfare Director Relationship Specialty Start Date End Date Celina Mirza MD 230 [place] [address] PCP - General Family Medicine 07/25/18 Shannan Craft [address] [phone] Sleep Medicine 09/20/24 Yessy Lanier OD [address] [place] [address] Optometry 09/25/24 Justa Lorenzo MD [facility] Rheumatology 06/13/24 Yanelis GEE virtual Psychiatry 02/04/25 Renee GEE 230 [place], [place] Psychology 02/04/25 documented as of this encounter
--- OUTSIDE RECORDS SUMMARY | 2025-03-27 13:12 | XMS_ITS | Encounter Summary ---
Author Organization [employer] Address [address] [facility] [address] 7t [place] [address] Care Team Providers Care Sea Foam Kiss Maker Name Role Phone Celina Mirza MD Primary Care Provider +1- [phone] Shannan Craft Unavailable [phone] Yessy Lanier OD Unavailable [phone] Reason for Visit * Reason Comments Med Refill Encounter Details Date Type Department Care Team (Late st Contact Info) Description 10/22/2023 Refill [facility] MEDICINE 230 [place], [place] [phone] Cynthia Nowak MD 230 [place], [place] [phone] Diabetes mellitus without complication ([facility]) Social History Tobacco Use Types [...] Description 08/12/2025 9:00 AM EST Office Visit [facility] OPTOMETRY 267 [place], [place] [phone] Yessy Lanier OD 230 [place] [address] documented as of this encounter Visit Diagnoses Diagnosis Diabetes mellitus without complication (CMS/H[facility]) Type II or unspecified type diabetes mellitus without mention of complication, not stated as uncontrolled documented in this encounter Care Teams Sea Foam Kiss Maker Relationship Specialty Start Date End Date Celina Mirza MD 230 [place] [address] PCP - General Family Medicine 07/25/18 Shannan Craft [address] [phone] Sleep Medicine 09/20/24 Yessy Lanier, VIOLA [address] [place] [address] Optometry 09/25/24 Justa Lorenzo MD [facility] Rheumatology 06/13/24 Yanelis Honeycutt Catrina virtual Psychiatry 02/04/25 Renee GEE 230 [place], [place] Psychology 02/04/25 documented as of this encounter
--- OUTSIDE RECORDS SUMMARY | 2025-03-27 13:12 | XMS_ITS | Encounter Summary ---
Author Organization [employer] Address [address] [facility] [address] 7t [place] [address] Care Team Providers Care Plaster Helper Name Role Phone Celina Mirza MD Primary Care Provider +1- [phone] Shannan Craft Unavailable [phone] Yessy Lanier OD Unavailable [phone] Encounter Details Date Type Department Care Team (Late st Contact Info) Description 12/02/2023 Orders Only [facility] MEDICINE 230 [place] [address] Clara Newman MD 230 [place], [place] [phone] Social History Tobacco Use Types Packs/Day Years [...] Description 08/12/2025 9:00 AM EST Office Visit [facility] OPTOMETRY [address] [place] [address] Yessy Lanier, OD 230 [place] [address] documented as of this encounter Visit Diagnoses Not on filedocumented in this encounter Care Teams Plaster Helper Relationship Specialty Start Date End Date Celina Mirza MD 230 [place] [address] PCP - General Family Medicine 07/25/18 Shannan Craft [address] [phone] Sleep Medicine 09/20/24 Yessy Lanier, OD [address] [place] [address] Optometry 09/25/24 Justa Lorenzo MD [facility] Rheumatology 06/13/24 Yanelis GEE virtual Psychiatry 02/04/25 Renee GEE 230 [place], [place] Psychology 02/04/25 documented as of this encounter
[2025-03-27 13:42] LABS: Microalbum/Creatinine Ratio Ur 5.3 ug/mg cr (<30)
[2025-03-27 13:50] LABS: Anion Gap 13 (12-20); Blood Urea Nitrogen 19 mg/dL (9-16); Carbon Dioxide 20 mmol/L (22-29); Chloride 111 mmol/L (96-108); Potassium 4.1 mmol/L (3.3-5.1); Sodium 140 mmol/L (135-145)
[2025-03-27 13:51] LABS: Alanine Aminotransferase 11 U/L (0-31); Albumin Level 4.4 g/dL (3.5-5.0); Alkaline Phosphatase 76 U/L (39-117); Aspartate Amino Transferase 22 U/L (5-31); Calcium 8.9 mg/dL (8.4-10.2); Cholesterol 130 mg/dL (<200); Estimated Glomerular Filt Rate 50; HDL Cholesterol 36 mg/dL (>40); Total Protein 7.9 g/dL (6.5-8.0); Triglycerides 189 mg/dL (<150)
== END 2025-03-27 10:59 | disposition home or self-care (01) ==
LOC: HO.HHCL 10:58
PROVIDERS: PCP Family Medicine; Visit Provider Family Medicine
DX: E11.9 Type 2 diabetes mellitus without complications (principal); E66.813 Obesity, class 3; Z68.41 Body mass index [BMI] 40.0-44.9, adult
CPT/HCPCS: 36415; 80048; 80061; 80076; 82043; 82570; 84443

== ENCOUNTER 2025-06-05 07:47 | Outpatient (AMB) | payer MEDICAID, SELFPAY ==
--- OUTSIDE RECORDS SUMMARY | 2025-06-05 07:51 | XMS_ITS | Encounter Summary ---
Author Organization [employer] Address [address] [facility] [address] 7t [place] [address] Care Team Providers Care Automotive Engineer Name Role Phone Celina Mirza MD Primary Care Provider +- [phone] Shannan Craft Unavailable [phone] Yessy Lanier OD Unavailable [phone] Reason for Visit * Reason Comments Med Refill Encounter Details Date Type Department Care Team (Late st Contact Info) Description 08/08/2023 Refill [facility] WALK-IN CENTER 230 [place], [place] [phone] Haylee Parker MD 230 [place] [address] Acute right ankle pain; Acute left ankle [...] Care Team (Late st Contact Info) Description 08/23/2025 1:00 PM EST Office Visit [facility] OPTOMETRY [address] [place] [address] Yessy Lanier OD 230 [place] [address] documented as of this encounter Visit Diagnoses Diagnosis Acute right ankle pain Acute left ankle pain documented in this encounter Care Teams Automotive Engineer Relationship Specialty Start Date End Date Celina Mirza MD 230 [place] [address] PCP - General Family Medicine 07/25/18 Shannan Craft [address] [place] [phone] Sleep Medicine 09/20/24 Yessy aLnier OD [address] [place] [address] Optometry 09/25/24 Justa Lorenzo MD [facility] Rheumatology 06/13/24 Yanelis GEE virtual Psychiatry 02/04/25 Renee GEE 230 [place], [place] Psychology 02/04/25 documented as of this encounter
--- OUTSIDE RECORDS SUMMARY | 2025-06-05 07:51 | XMS_ITS | Encounter Summary ---
Author Organization [employer] Address [address] [facility] 7t [place] [address] Care Team Providers Care Fowl Blood Tester Name Role Phone Celina Mirza MD Primary Care Provider +1- [phone] Shannan Craft Unavailable Yessy Lanier OD Unavailable [phone] Reason for Visit * Reason Comments Med Refill Encounter Details Date Type Department Care Team (Late st Contact Info) Description 06/04/2025 Refill [facility] MEDICINE 230 [place], [place] [phone] Haylee Lopez MD 230 [place], [place] [phone] Pain; Chronic migraine w/o aura w/o status migrainosus, not intractable Social History Tobacco [...] Description 08/23/2025 1:00 PM EST Office Visit [facility] OPTOMETRY [address] [place] [address] Yessy Lanier, OD 230 [place] [address] documented as of this encounter Visit Diagnoses Diagnosis Pain Generalized pain Chronic migraine w/o aura w/o status migrainosus, not intractable documented in this encounter Additional Health Concerns Assessment Noted Time PHQ-9 Depression Total Score: 17 025 9:52 AM EDT documented as of this encounter Care Teams Fowl Blood Tester Relationship Specialty Start Date End Date Celina Mirza MD 230 [place] [address] PCP - General Family Medicine 07/25/18 Shannan Craft [address] [phone] Sleep Medicine 09/20/24 Yessy Lanier OD [address] [place] [address] Optometry 09/25/24 Justa Lorenzo MD [facility] Rheumatology 06/13/24 Yanelis GEE virtual Psychiatry 02/04/25 Renee GEE 230 [place], [place] Psychology 02/04/25 documented as of this encounter
--- OUTSIDE RECORDS SUMMARY | 2025-06-05 07:51 | XMS_ITS | Encounter Summary ---
Author Organization [employer] Address [address] [facility] 7t [place] [address] Care Team Providers Care Associate Web Developer Name Role Phone Celina Mirza MD Primary Care Provider +- [phone] Shannan Craft Unavailable [phone] Yessy Lanier OD Unavailable [phone] Reason for Visit * Reason Comments Med Refill Encounter Details Date Type Department Care Team (Late st Contact Info) Description 10/26/2023 Refill [facility] WALK-IN CENTER 230 [place], [place] [phone] Haylee Parker MD 230 [place] [address] Acute right ankle pain; Acute left ankle [...] Description 08/23/2025 1:00 PM EST Office Visit [facility] OPTOMETRY [address] [place] [address] Yessy Lanier OD 230 [place] [address] documented as of this encounter Visit Diagnoses Diagnosis Acute right ankle pain Acute left ankle pain documented in this encounter Care Teams Associate Web Developer Relationship Specialty Start Date End Date Celina Mirza MD 230 [place] [address] PCP - General Family Medicine 07/25/18 Shannan Craft [address] [place] [phone] Sleep Medicine 09/20/24 Yessy Lanier OD [address] [place] [address] Optometry 09/25/24 Justa Lorenzo MD [facility] Rheumatology 06/13/24 Yanelis GEE virtual Psychiatry 02/04/25 Renee GEE 230 [place], [place] Psychology 02/04/25 documented as of this encounter
--- OUTSIDE RECORDS SUMMARY | 2025-06-05 07:51 | XMS_ITS | Encounter Summary ---
Author Organization [employer] Address [address] 7[address] [place] [address] Care Team Providers Care Functional Mental Disability Teacher Name Role Phone Celina Mirza MD Primary Care Provider +1- [phone] Shannan Craft Unavailable [phone] Yannick, Yessy OD Unavailable [phone] Reason for Visit * Reason Comments Med Refill Encounter Details Date Type Department Care Team (Late st Contact Info) Description 07/20/2023 Refill [facility] MEDICINE 230 [place], [place] [phone] Celina Mirza MD 230 [place], [place] [phone] Other migraine without status migrainosus, not intractable [...] Description 08/23/2025 1:00 PM EST Office Visit [facility] OPTOMETRY [address] [place] [address] Yessy Lanier OD 230 [place] [address] documented as of this encounter Visit Diagnoses Diagnosis Other migraine without status migrainosus, not intractable documented in this encounter Care Teams Functional Mental Disability Teacher Relationship Specialty Start Date End Date Celina Mirza MD 230 [place] [address] PCP - General Family Medicine 07/25/18 Shannan Craft [address] [place] [phone] Sleep Medicine 09/20/24 Yessy Lanier OD [address] [place] [address] Optometry 09/25/24 Justa Lorenzo MD [facility] Rheumatology 06/13/24 Yanelis GEE virtual Psychiatry 02/04/25 Renee GEE 230 [place], [place] Psychology 02/04/25 documented as of this encounter
--- OUTSIDE RECORDS SUMMARY | 2025-06-05 07:51 | XMS_ITS | Encounter Summary ---
Author Organization [employer] Address [address] 7t [place] [address] Care Team Providers Care Rn Neurology Name Role Phone Celina Mirza MD Primary Care Provider +1- [phone] Shannan Craft Unavailable [phone] Yannick, Yessy OD Unavailable [phone] Reason for Visit * Reason Onset Date Comments Med Refill 12/20/2024 Encounter Details Date Type Department Care Team (Late st Contact Info) Description 12/20/2024 Telephone [facility] MEDICINE 230 [place], [place] [phone] Celina Mirza MD 230 [place], [place] [phone] Med Refill Social History Tobacco Use Types [...] MG ER tablet To be sent to: [facility]- [facility] - [place], [place] - [address] documented in this encounter Plan of Treatment Upcoming Encounters Date Type Department Care Team (Late st Contact Info) Description 08/23/2025 1:00 PM EST Office Visit [facility] OPTOMETRY [address] [place] [address] Yessy Lanier OD 230 [place] [address] documented as of this encounter Visit Diagnoses Not on filedocumented in this encounter Additional Health Concerns Assessment Noted Time PHQ-9 Depression Total Score: 16 024 11:41 AM EDT documented as of this encounter Care Teams Rn Neurology Relationship Specialty Start Date End Date Celina Mirza MD 230 [place] [address] PCP - General Family Medicine 07/25/18 Shannan Craft [address] [place] [phone] Sleep Medicine 09/20/24 Yessy Lanier, VIOLA [address] [place] [address] Optometry 09/25/24 Justa Lorenzo MD [facility] Rheumatology 06/13/24 Yanelis GEE virtual Psychiatry 02/04/25 Renee GEE 230 [place], [place] Psychology 02/04/25 documented as of this encounter
--- OUTSIDE RECORDS SUMMARY | 2025-06-05 07:51 | XMS_ITS | Encounter Summary ---
Author Organization [employer] Address [address] 7t [place] [address] Care Team Providers Care Ear Muff Assembler Name Role Phone Celina Mirza MD Primary Care Provider [phone]- [phone] Shannan Craft Unavailable [phone] Yessy Lanier OD Unavailable [phone] Reason for Visit * Reason Comments Med Refill Encounter Details Date Type Department Care Team (Late st Contact Info) Description 10/22/2023 Refill [facility] MEDICINE 230 [place], [place] [phone] Cynthia Nowak MD 230 [place], [place] [phone] Diabetes mellitus without complication ([facility]) Social History Tobacco Use Types [...] Description 08/23/2025 1:00 PM EST Office Visit [facility] OPTOMETRY [address] [place], [place] [phone] Yessy Lanier OD 230 [place] [address] documented as of this encounter Visit Diagnoses Diagnosis Diabetes mellitus without complication (HCC) Type II or unspecified type diabetes mellitus without mention of complication, not stated as uncontrolled documented in this encounter Care Teams Ear Muff Assembler Relationship Specialty Start Date End Date Celina Mirza MD 230 [place] [address] PCP - General Family Medicine 07/25/18 Shannan Craft [address] [phone] Sleep Medicine 09/20/24 Yessy Lanier, VIOLA [address] [place] [address] Optometry 09/25/24 Justa Lorenzo MD [facility] Rheumatology 06/13/24 Yanelis Honeycutt GERARD virtual Psychiatry 02/04/25 Renee GEE 230 [place], [place] Psychology 02/04/25 documented as of this encounter
--- OUTSIDE RECORDS SUMMARY | 2025-06-05 07:51 | XMS_ITS | Encounter Summary ---
Author Organization [employer] Address [address] 7[address] [place] [address] Care Team Providers Care Basting Machine Operator Name Role Phone Celina Mirza MD Primary Care Provider +1- [phone] Shannan Craft Unavailable [phone] Yannick, Yessy OD Unavailable Reason for Visit * Reason Comments Med Change Request Encounter Details Date Type Department Care Team (Late st Contact Info) Description 11/23/2023 Refill [facility] WALK-IN CENTER 230 [place], [place] [phone] Celina Mirza MD 230 [place], [place] [phone] Diabetes mellitus without complication (CMS/HCC) Social History [...] Upcoming Encounters Date Type Department Care Team ([facility] st Contact Info) Description 08/23/2025 1:00 PM EST Office Visit [facility] OPTOMETRY 267 [place] [address] Yessy Lanier, VIOLA 230 [place] [address] documented as of this encounter Visit Diagnoses Diagnosis Diabetes mellitus without complication (HCC) Type II or unspecified type diabetes mellitus without mention of complication, not stated as uncontrolled documented in this encounter Care Teams Basting Machine Operator Relationship Specialty Start Date End Date Celina Mirza MD 230 [place] [address] PCP - General Family Medicine 07/25/18 Shannan Craft [address] [phone] Sleep Medicine 09/20/24 Yessy Lanier, OD [address] [place] [address] Optometry 09/25/24 Justa Lorenzo MD [facility] Rheumatology 06/13/24 Yanelis Honeycutt Catrina virtual Psychiatry 02/04/25 Renee GEE 230 [place], [place] Psychology 02/04/25 documented as of this encounter
--- OUTSIDE RECORDS SUMMARY | 2025-06-05 07:51 | XMS_ITS | Encounter Summary ---
Author Organization [employer] Address [address] [facility] 7[address] [place] [address] Care Team Providers Care Salesperson Handbags Name Role Phone Celina Mirza MD Primary Care Provider +- [phone] Shannan Craft Unavailable [phone] Yessy Lanier OD Unavailable [phone] Encounter Details Date Type Department Care Team (Late st Contact Info) Description 12/02/2023 Orders Only [facility] MEDICINE 230 [place] [address] Clara Newman MD 230 [place], [place] [phone] Social History Tobacco Use Types Packs/Day Years [...] Description 08/23/2025 1:00 PM EST Office Visit [facility] OPTOMETRY [address] [place] [address] Yessy Lanier, OD 230 [place] [address] documented as of this encounter Visit Diagnoses Not on filedocumented in this encounter Care Teams Salesperson Handbags Relationship Specialty Start Date End Date Celina Mirza MD 230 [place] [address] PCP - General Family Medicine 07/25/18 Shannan Craft [address] [phone] Sleep Medicine 09/20/24 Yessy Lanier, OD [address] [place] [address] Optometry 09/25/24 Justa Lorenzo MD [facility] Rheumatology 06/13/24 Yanelis GEE virtual Psychiatry 02/04/25 Renee GEE 230 [place], [place] Psychology 02/04/25 documented as of this encounter
--- OUTSIDE RECORDS SUMMARY | 2025-06-05 07:51 | XMS_ITS | Encounter Summary ---
Author Organization [employer] Address [address] [facility] [address] [facility] [address] 7t [place] [address] Care Team Providers Care Offline Editor Name Role Phone Celina Mirza MD Primary Care Provider +1- [phone] Shannan Craft Unavailable [phone] Yannick, Yessy OD Unavailable Reason for Visit * Reason Comments Med Refill Encounter Details Date Type Department Care Team (Late st Contact Info) Description 10/26/[address] [facility] MEDICINE 230 [place], [place] [phone] Celina Mirza MD 230 [place], [place] [phone] Influenza-like symptoms Social History Tobacco Use Types [...] Description 08/23/2025 1:00 PM EST Office Visit [facility] OPTOMETRY [address] [place] [address] Yessy Lanier, VIOLA 230 [place] [address] documented as of this encounter Visit Diagnoses Diagnosis Influenza-like symptoms Other general symptoms documented in this encounter Care Teams Offline Editor Relationship Specialty Start Date End Date Celina Mirza MD 230 [place] [address] PCP - General Family Medicine 07/25/18 Shannan Craft [facility] [address] [address] Sleep Medicine 09/20/24 Yessy Lanier, VIOLA [address] [place] [address] Optometry 09/25/24 Justa Lorenzo MD [facility] Rheumatology 06/13/24 Yanelis GEE virtual Psychiatry 02/04/25 Renee GEE 230 [place], [place] Psychology 02/04/25 documented as of this encounter
--- OUTSIDE RECORDS SUMMARY | 2025-06-05 07:51 | XMS_ITS | Encounter Summary ---
Author Organization [employer] Address [address] [place] [address] Care Team Providers Care Shift Stacker Name Role Phone Celina Mirza MD Primary Care Provider +1- [phone] Shannan Craft Unavailable Yannick, Yessy OD Unavailable [phone] Reason for Visit * Reason Comments Med Refill Encounter Details Date Type Department Care Team (Late st Contact Info) Description 12/23/2023 Refill [facility] MEDICINE 230 [place], [place] [phone] Celina Mirza MD 230 [place], [place] [phone] Gastroesophageal reflux disease, unspecified whether esophagitis present [...] Description 08/23/2025 1:00 PM EST Office Visit [facility] OPTOMETRY [address] [place] [address] Yessy Lanier OD 230 [place] [address] documented as of this encounter Visit Diagnoses Diagnosis Gastroesophageal reflux disease, unspecified whether esophagitis present documented in this encounter Care Teams Shift Stacker Relationship Specialty Start Date End Date Celina Mirza MD 230 [place] [address] PCP - General Family Medicine 07/25/18 Shannan Craft [address] [place] [phone] Sleep Medicine 09/20/24 Yessy Lanier OD [address] [place] [address] Optometry 09/25/24 Justa Lorenzo MD [facility] Rheumatology 06/13/24 Yanelis GEE virtual Psychiatry 02/04/25 Renee GEE 230 [place], [place] Psychology 02/04/25 documented as of this encounter
--- OUTSIDE RECORDS SUMMARY | 2025-06-05 07:52 | XMS_ITS | Encounter Summary ---
Author Organization [employer] Address [address] [place] [address] Care Team Providers Care Turbine Engine Assembler Name Role Phone Celina Mirza MD Primary Care Provider +- [phone] Shannan Craft Unavailable [phone] Yessy Lanier OD Unavailable [phone] Reason for Visit * Reason Comments Med Refill Encounter Details Date Type Department Care Team (Late st Contact Info) Description 06/13/2023 Refill [facility] WALK-IN CENTER 230 [place] [address] Haylee Parker MD 230 [place] [address] Acute right ankle pain; Acute left ankle [...] Office Visit [facility] OPTOMETRY [address] [place] [address] Yessy Lanier OD 230 [place] [address] documented as of this encounter Visit Diagnoses Diagnosis Acute right ankle pain Acute left ankle pain documented in this encounter Care Teams Turbine Engine Assembler Relationship Specialty Start Date End Date Celina Mirza MD 230 [place] [address] PCP - General Family Medicine 07/25/18 Shannan Craft [address] [place] [phone] Sleep Medicine 09/20/24 Yessy Lanier OD [address] [place] [address] Optometry 09/25/24 Justa Lorenzo MD [facility] Rheumatology 06/13/24 Yanelis GEE virtual Psychiatry 02/04/25 Renee GEE 230 [place], [place] Psychology 02/04/25 documented as of this encounter
--- OUTSIDE RECORDS SUMMARY | 2025-06-05 07:52 | XMS_ITS | Clinical Summary ---
Author Organization [employer] Address [address] [facility] 7[address] [place] [address] Care Team Providers Care Correctional Food Service Supervisor Name Role Phone Celina Mirza MD Primary Care Provider [phone] Shannan Craft Unavailable [phone] Yessy Lanier OD Unavailable [phone] Allergies No known active allergies Medications [...] LITE) test stripIndication s:Diabetes mellitus without complication (HCC) Use bid, dx diabetes 100 each 3 024 Active cyclobenzaprine (Flexeril) 10 MG tabletIndicatio [...] solution pen-injectorInd ications:Diabet es mellitus without complication (HCC) INJECT 2MG SUBCUTANEOUSLY ONCE WEEKLY ON THE SAME DAY EVERY WEEK 3 mL 11 025 Active atorvastatin (Lipitor) 20 MG tabletIndicatio ns:Diabetes mellitus without complication (HCC),Dyslipide linda Take 1 tablet (20 mg) by mouth [...] 500 MG tabletIndicatio ns:Diabetes mellitus without complication (HCC) TAKE 1 TABLET BY MOUTH IN THE MORNING AND IN THE EVENING 180 tablet 1 025 Active omeprazole (PriLOSEC) [address] capsuleIndicati ons:Gastroesoph ageal reflux disease, unspecified whether esophagitis present TAKE 1 CAPSULE BY MOUTH EVERY DAY NEEDED 90 capsule 1 025 Active acetaminophen (Tylenol 8 Hour) 650 MG ER tabletIndicatio ns:Pain TAKE 1 TABLET BY MOUTH EVERY 8 HOURS NEEDED PAIN 30 tablet 025 Active topiramate (Topamax) 100 MG tabletIndicatio ns:Chronic migraine w/o aura w/o status migrainosus, not intractable Take 1 tablet (100 mg) by mouth at bedtime. 90 tablet 3 025 2025 Active topiramate (Topamax) 100 MG tabletIndicatio ns:Chronic migraine w/o aura w/o status migrainosus, not intractable Take 1 tablet (100 mg) by mouth at bedtime. Dose increased 06/27/24 90 tablet 3 024 2024 Discontinued(R eorder (will not trigger notification to Pharmacy)) acetaminophen (Tylenol 8 Hour) 650 MG ER tabletIndicatio ns:Pain TAKE 1 TABLET BY MOUTH EVERY 8 HOURS NEEDED FOR PAIN FOR 10 DAYS DONT CRUSH CHEW OR SPLIT 30 tablet 025 2024 Discontinued(R eorder (will not trigger notification to Pharmacy)) acetaminophen (Tylenol 8 Hour) 650 MG ER tabletIndicatio ns:Pain TAKE 1 TABLET BY MOUTH EVERY 8 HOURS NEEDED FOR PAIN FOR 10 DAYS DONT CRUSH CHEW OR SPLIT 30 tablet 025 2024 Discontinued Active Problems Patient Care Coordination No te Formatting of this note migh t be different from the original. Has services with Department of Mental Health Applying to [facility] for assistance with ADL 03/08/24 [facility] intensive healthcare management with [facility] [phone] Problem Noted Date Diagnosed Date Stage 3a chronic kidney disease (CMS/HCC) 2024 Overview (05/15/2025): Lab Results Component Value Date CREATININE 1.21 03/27/2025 CREATININE 1.13 02/02/2024 CREATININE 1.03 11/29/2023 EGFR 50 03/27/2025 EGFR 55 02/02/2024 EGFR >60 11/29/2023 MICROALBCREU 5.3 03/27/2025 MICROALBCREU 13.0 04/09/2024 MICROALBCREU 51.2 (H) 02/02/2024 CKD (chronic kidney disease) 05/07/2025 Overview (05/07/2025): Lab Results Component Value Date CREATININE 1.21 03/27/2025 CREATININE 1.13 02/02/2024 CREATININE 1.03 11/29/2023 EGFR 50 03/27/2025 EGFR 55 02/02/2024 EGFR >60 11/29/2023 MICROALBCREU 5.3 03/27/2025 MICROALBCREU 13.0 04/09/2024 MICROALBCREU 51.2 (H) 02/02/2024 Pap smear for cervical cancer screening 04/20/20 [...] needs to call to reschedule due to Funeral Director called out. Assessment & Plan (04/20/2024 10:13 [...] needs to call to reschedule due to Funeral Director called out. Assessment & Plan (03/08/2024 5:40 [...] due after 02/04/26 -eye care facilitated by [facility], pt will schedule an appt -health care proxy given 02/01/24, filed 04/20/24 Assessment & Plan (02/04/2025 10:21 AM EDT): -next physical exam due after 02/04/26 -eye care facilitated by [facility], pt will schedule an appt -health care proxy given 02/01/24, filed 04/20/24 Assessment & Plan (02/01/2024 11:25 AM EDT): -next physical exam due after 01/31/25 -eye care facilitated by [facility], pt will schedule an appt -health care [...] day Exercise: Patient lives close to the [facility]. She has to go there at least [...] day Exercise: Patient lives close to the [facility]. She has to go there at least [...] EDT): Followed by therapist and psychiatrist with [facility]. Denies suicidial or homacidial ideation. Assessment & Plan (04/20/2024 10:22 AM EDT): -sees psychiatrist, but will be switching to a new one since her current psychiatrist is leaving -established at [facility] in [place]. Assessment & Plan (02/01/2024 11:26 AM EDT): -sees psychiatrist, but will be switching to a new one since her current psychiatrist is leaving Type 2 diabetes mellitus wit h kidney complication, without long-term current use of insulin 08/17/2017 Overview (05/07/2025): Diabetes is controlled. Lab Results Component Value Date HGBA1C 5.5 02/04/2025 HGBA1C 6.1 (A) 05/23/2024 HGBA1C 5.8 02/02/2024 Lab Results Component Value Date CREATININE 1.21 03/27/2025 EGFR 50 03/27/2025 MICROALBCREU 5.3 03/27/2025 MICROALBCREU 13.0 04/09/2024 LDLCHOLCAL 57 03/27/2025 -Kendrick/Arb: will discuss after family planning discussion given risk of kendrick on -Statin therapy: atorvastatin 20mg started 04/2020 -Diabetic eye exam: per [facility] eye -Diabetic foot exam: done 02/01/24 -Continue [...] 20mg started 04/2020 -Diabetic eye exam: per [facility] eye -Diabetic foot exam: done 02/01/24 -Continue [...] 20mg started 04/2020 -Diabetic eye exam: per [facility] eye -Diabetic foot exam: done 02/01/24 -Continue [...] 20mg started 04/2020 -Diabetic eye exam: per [facility] eye -Diabetic foot exam: done 02/01/24 -Continue [...] 20mg started 04/2020 -Diabetic eye exam: per [facility] eye -Diabetic foot exam: done 02/01/24 -Continue [...] 20mg started 04/2020 -Diabetic eye exam: per [facility] eye -Diabetic foot exam: done 02/01/24 -Continue [...] Complex care coordination 05/23/2024 Overview (05/23/2024): Has healthcare management. Still waiting approval for home assistance through [facility]. Discussed to call medical records. Assessment & Plan (05/23/2024 11:48 AM EDT): Has healthcare management. Still waiting approval for home assistance through [...] Encounters Date Type Department Care Team Description 06/04/2025 Refill [facility] [address] [place] [address] Haylee Lopez MD Pain; Chronic migraine w/o aura w/o status migrainosus, not intractable 05/10/2025 Refill [facility] [address] [place] [address] Celina Mirza MD Pain 04/17/2025 Refill [facility] [address] [place] [address] Celina Mirza MD Pain 04/10/2025 10:15 AM EDT Office Visit [facility] OPTOM[facility] [address] [place] [address] Yannick, Yessy, OD Myopia of both eyes (Primary Dx) 04/10/2025 Travel 04/02/2025 2:00 PM EDT Office Visit [facility] ADULT DENTAL [address] [place] [address] Marysol Dejesus Advanced periodontitis (Primary Dx); Periodontal abscess; Pain 03/28/2025 Results Follow-Up [facility] [address] [place] [address] Celina Mirza MD POCT Glucose, POCT HGB A1C, Albumin, Random Urine W/Creatinine, Additional followed-up results: 4 03/08/2025 Refill [facility] [address] [place] [address] Celina Mirza MD Pain from Last 3 Months Immunizations Immunization Administration Dates Next Due DTaP 12/02/1992, 2,1988,1988 HPV, Quadrivalent 06/13/2008,03/14/2008,08/30/19 08 Hep A, Adult 02/04/2025,02/01/2024 Hep B, Adolescent or Pediatric 10/09/1996,1995,03/05/1996 Hib ([facility]) 01/04/1992 IPV 12/03/1992, 2,1988,1987 Influenza injectable quadriv [...] your housing situation today? I have abdulaziz cesar 02/04/[address] you li [...] Sign Reading Time Taken Comments Blood Pressure 146/88 04/02/2025 2:03 PM EDT Pulse 115 02/04/2025 9:53 AM EDT [...] Description 08/23/2025 1:00 PM EST Office Visit [facility] [address] [place], [place] [phone] Yannick, Yessy, OD [address] [place] [address] Health Maintenance Due Date Last Done Comments Alcohol/Substance Use Screening 2000 Family Planning (PISQ) 2003 Dental Prophylaxis 02/14/2015 08/16/2014 Influenza Vaccine (#1) 2025 , 04/01/2022, 04/30/2021, Additional history exists Diabetes: Hemoglobin A1C 05/07/2025 025, 05/23/2024, 02/02/2024, Additional history exists Depression Monitoring 08/07/2025 02/04/2025, 025 Dental Oral Exam 10/01/2025 04/02/2025, 11/18/2014 Diabetes: Foot Exam 02/04/2026 02/04/2025, 02/04/2025, 02/04/2025, Additional history exists Disability Screening 02/04/2026 02/04/2025 SDOH Screening 02/04/2026 02/04/2025 Lipid Panel 03/27/2026 03/27/2025, 01/22, 11/29/2023, Additional history exists Tobacco Screening 04/02/2026 04/02/2025 Dental X-Ray: Bitewings 04/03/2026 04/02/2025, 11/18 Eye Exam 05/30/2026 05/30/2024, 11/0 12/2023, 05/30/2024, Additional history exists Pap Smear 04/20/2027 04/20/2024, 03/24/2018 Dental X-Ray: Full Mouth 04/03/2028 04/02/2025, 10/24 Cervical Cancer Screening 04/20/2029 HPV/Cotest 04/20/2029 04/20/2024, [...] Procedure Name Priority Date/Time Associated Diagnosis Comments CASE PRESENTATION, DETAILED AND EXTENSIVE TREATMENT PLANNING Routine 04/02/2025 2:00 PM EDT PERIODIC ORAL EVALUATION - ESTABLISHED PATIENT Routine 04/02/2025 2:00 PM EDT INTRAORAL - COMPLETE SERIES OF RADIOGRAPHIC IMAGES Routine 04/02/2025 2:00 PM EDT Advanced periodontitis Periodontal abscess TSH W/REFLEX TO FT4 Routine 03/27/2025 1 1:05 AM EDT Class 3 severe obesity due to excess calories with serious comorbidity and body mass index (BMI) of 40.0 to 44.9 in adult BASIC METABOLIC PANEL Routine 03/27/2025 11:05 AM EDT Type 2 diabetes mellitus without complication, without long-term current use of insulin (CMS/HCC) LIPID PANEL, STANDARD Routine 03/27/2025 11:05 AM EDT Type 2 diabetes mellitus without complication, without long-term current use of insulin (CMS/HCC) HEPATIC FUNCTION PANEL Routine 03/27/2025 11:05 AM EDT Type 2 diabetes mellitus without complication, without long-term current use of insulin (CMS/HCC) ALBUMIN, RANDOM URINE W/CREATININE Routine 03/27/2025 11:05 AM EDT Type 2 diabetes mellitus without complication, without long-term current use of insulin (CMS/HCC) POCT GLYCATED HEMOGLOBIN, TOTAL Routine 02/04/2025 9:56 AM EDT Type 2 diabetes mellitus without complication, without long-term current use of insulin (CMS/HCC) HIV 1/2 ANTIGEN/ANTIBODY, FOURTH GENERATION W/RFL Routine 11/27/2024 8:43 AM EDT Routine screening for STI (sexually transmitted infection) THINPREP IMAGING PAP AND HPV MRNA E6/E7 Routine 04/20/2024 12:00 AM EDT HEPATITIS C AB W/REFL TO HCV RNA, QN, PCR Routine 07/12/2022 10:08 AM EST Fibromyalgia PROPHYLAXIS - ADULT Routine 08/16/2014 1 2:00 AM EST from Last 3 Months or Most Recently Relevant to Health Maintenance Results * TSH W/Reflex to FT4 (03/27/2025 11:05 AM EDT) TSH reflex Free T4 1.41 0.32 - 4.0 uIU/mL [facility] Blood Venous blood specimen / Unknown 03/27/2025 11:05 AM EDT 03/27/2025 1:16 PM EDT Celina Mirza MD LAB BLOOD ORDERABLES Final Result Performing Organization Address [facility] de Phone Number [facility] [address] [place] [phone] * Albumin, Random Urine W/Creatinine (03/27/2025 11:05 AM EDT) Creatinine, Urine 611.78 mg/dL [facility] Microalbumin Urine 33.0 mg/L [facility] Microalbum Creatinine Ratio Ur 5.3 <30 ug/mg cr [facility] Comment:Albumin/Creatinine R atio Reference Ranges: Normal: < 30 ug/mg creatinine Microalbuminuria: 30 - 300 ug/mg creatinineClinical Albuminuria: > 300 ug/mg creatinine Urine 03/27/2025 11:0 5 AM EDT 03/27/2025 12:50 PM EDT Celina Mirza MD LAB URINE ORDERABLES Final Result Performing Organization Address [facility] de Phone Number [facility] [address] [place] [phone] * Hepatic Function Panel (03/27/2025 11:05 AM EDT) Bilirubin, Total 0.5 0.0 - 1.0 mg/dL [facility] Bilirubin, Direct 0.1 0.0 - 0.5 mg/dL [facility] Aspartate Amino Transferase 22 5 - 31 U/L [facility] Alanine Aminotransferase 11 0 - 31 U/L [facility] Total Protein 7.9 6.5 - 8.0 g/dL [facility] Albumin Level 4.4 3.5 - 5.0 g/dL [facility] Alkaline Phosphatase 76 39 - 117 U/L [facility] Blood Venous blood specimen / Unknown 03/27/2025 11:05 AM EDT 03/27/2025 1:16 PM EDT Celina Mirza MD LAB BLOOD ORDERABLES Final Result Performing Organization Address [facility] Co de Phone Number [facility] [address] [place] [phone] * (ABNORMAL) Lipid Panel, Standard (03/27/2025 11:05 AM EDT) Triglycerides 189(H) <150 mg/dL [facility] Comment:Desirable Triglyceri de: less than 150 mg/dLBorderline High Triglyceride 150-199 mg/dLHigh Triglyceride: 200-499 mg/dLVery High Triglyceride: greater than or equal to 5OO mg/dL Cholesterol 130 <200 mg/dL [facility] Comment:Desirable Cholestero l: less than 200 mg/dLBorderline High Cholesterol: 200-239 mg/dLHigh Cholesterol: greater than 239 mg/dL LDL Cholesterol Calculated 57 <100 mg/dL [facility] Comment:Desirable LDL: less than 100 mg/dLNear Optimal/Above Optimal LDL: 110- 129 mg/dLBorderline High LDL: 130-159 mg/dLHigh LDL: 160-189 mg/dLVery High LDL: greater than or equal to 190 mg/dL HDL Cholesterol 36(L) >40 mg/dL [facility] Comment:Desirable HDL: great er than 40 mg/dL Note: This HDL assay may give artificially low results in patients with liver disease. Blood Venous blood specimen / Unknown 03/27/2025 11:05 AM EDT 03/27/2025 1:16 PM EDT Celina Mirza MD LAB BLOOD ORDERABLES Final Result Performing Organization Address City/[facility] Co de Phone Number [facility] [address] [place] [phone] * (ABNORMAL) Basic Metabolic Panel (03/27/2025 11:05 AM EDT) Sodium 140 135 - 145 mmol/L [facility] Potassium 4.1 3.3 - 5.1 mmol/L [facility] Chloride 111(H) 96 - 108 mmol/L [facility] Carbon Dioxide 20(L) 22 - 29 mmol/L [facility] Anion Gap 13 12 - 20 [facility] Urea Nitrogen (BUN) 19(H) 9 - 16 mg/dL [facility] Creatinine, Serum 1.21 0.5 - 1.4 mg/dL [facility] Estimated Glomerular Filt Rate 50 [facility] Comment:Chronic Kidney Disea se: Estimated GFR < 60 mL/min/1.78s8Dooivh Kidney Disease: Estimated GFR < 15 mL/min/1.73m2 Glucose 94 60 - 115 mg/dL [facility] Calcium 8.9 8.4 - 10.2 mg/dL [facility] Blood Venous blood specimen / Unknown 03/27/2025 11:05 AM EDT 03/27/2025 1:16 PM EDT Celina Mirza MD LAB BLOOD ORDERABLES Final Result [facility] [address] [place] [phone] * POCT HGB A1C (02/04/2025 9:56 AM EDT) Hemoglobin A1C 5.5 4.0 - 5.7 % QC Media Lot # [id number] Lot# Expiration Date ,[id number] Blood 02/04/2025 9:56 AM EDT us Celina Mirza MD POINT OF CARE TEST ENTER/E DIT ORDERABLES Final Result * HIV-1/2 Antigen and Antibodies, Fourth Generation, with Reflexes (11/27/2024 8:43 AM EDT) HIV AB/AG Nonreactive Nonreactive [facility] Comment:HIV-1 p24 Ag and/or HIV-1/HIV-2 Ab not detected.A test result that is nonreactive does not exclude thepossibility of exposure to or infection with HIV-1 and/orHIV-2. Nonreactive results in this assay for individualswith prior exposure to HIV-1 and/or HIV-2 may be due toantigen and antibody levels that are below the limit ofdetection of this assay.The Next Glass HIV Ag/Ab Combo assay result andsupplemental assay results should be interpreted inconjunction with the patient's clinical presentation,history and other laboratory results. If the results areinconsistent with clinical evidence, additional testing issuggested to confirm the result. Blood Venous blood specimen / Unknown 11/27/2024 8:43 AM EDT 11/27/2024 11:07 AM EDT us Celina Mirza MD LAB BLOOD ORDERABLES Final Result [facility] [address] [place] [phone] * ThinPrep Imaging Pap and HPV mRNA E6/E7 (04/20/2024 12:00 AM EDT) Pathologist [facility] HPV nRNA E6/E7 Not Detected [facility] Comment:REFERENCE RANGE: Not DetectedMethodology: Hide Curer-Mediated AmplificationThis assay detects E6/E7 viral messenger RNA (mRNA) from 14high- risk HPV types(16,18,31,33,35,39,45,51,52,56,58,59,66,68).Cervical sources are required for HPV testing.If a vaginal source from a patient who has had atotal hysterectomy with removal of cervix wassubmitted, please contact the testing laboratoryfor alternative testing options.For additional information, please refer tohttp://education.SubC Control/faq/JFR674e1(This link if provided for information/educational purposes only.)THIS TEST PERFORMED AT:[facility] [address] [phone] DIRECTOR: AMISH BORGES MD SOURCE: Cervix [facility] Report Status: [facility] Clinical Information: None given [facility] LMP: NONE GIVEN [facility] Prev. PAP: NONE GIVEN [facility] Prev. BX: NONE GIVEN [facility] Statement Of Adequacy: SEE NOTE [facility] Comment:Satisfactory for charu luation.Endocervical/transformation zone componentpresent. General Categorization: [facility] Interpretation/Result: SEE NOTE [facility] Comment:Cytology Results: Ne gative for intraepitheliallesion or malignancy. Cytology Comment SEE NOTE [facility] Comment:This Pap test has be en evaluated with computerassisted technology. Creative/Art Director: SEE NOTE [facility] Comment:RPR, CT (ASCP) CT sc reening location:[address] [address] Review Creative/Art Director: [facility] Pathologist [facility] PAP Infection SEE NOTE [facility] Comment:Shift in vaginal vanda ra suggestive of bacterialvaginosis. See Note EXPLANATORY NOTE [facility] Comment:The Pap is a screeni ng test for cervical cancer. It isnot a diagnostic test and is subject to false negativeand false positive results. It is most reliable when asatisfactory sample, regularly obtained, is submittedwith relevant clinical findings and history, and whenthe Pap result is evaluated along with historic andcurrent clinical information.THIS TEST PERFORMED AT:[facility] [address] [phone] DIRECTOR: AMISH BORGES MD 04/20/2024 04/20/2024 Narrative [facility] - 05/02/2024 1:29 PM EDT SEE SCANNED RESULTS IN EMR us Celina Mirza MD LAB PATHOLOGY ORDERABLES F inal Result [facility] [address] [place] [phone] * Hepatitis C Antibody with Reflex to HCV, RNA, Quantitative, Real-Time PCR (07/12/2022 10:08 AM EST) Hepatitis C Antibody NON-REACT TERRIE NON-REACT TERRIE [facility] [place] [facility] Index 0.10 <1.00 [facility] Comment: HCV antibody was non-reactive. There is no laboratory evidence of HCV infection. In most cases, no further action is required. However, if recent HCV exposure is suspected, a test for HCV RNA (test code 71916) is suggested. For additional information please refer to http://education.SubC Control/faq/VTS70u2 (This link is being provided for informational/ educational purposes only.) Blood Venous blood specimen / Unknown 07/12/2022 10:08 AM EST 07/12/2022 10:08 AM EST Narrative [facility] - 07/15/2022 7:08 PM EST FASTING:YES FASTING: YES Celina Mirza MD LAB BLOOD ORDERABLES Final Result Performing Organization Address City/[facility]/ZIP Co de Phone Number [facility] [address], [place] [address] [facility] [place] [facility] 200 [facility], ([address]) [place] [phone] from Last 3 Months or Most Recently Relevant to Health Maintenance Insurance [facility] ST[facility] AD[facility] Advance Directives Documents on File Type Date Recorded Patient House Coordinator Expl anation Advance Directives and Living Will 04/20/2024 Health Care Proxy 04/20/24 Care Teams Correctional Food Service Supervisor Relationship Specialty Start Date End Date Delta, MD Celina [address] [place] [address] PCP - General Family Medicine 07/25/18 Shannan Craft [address] [place] [phone] Sleep Medicine 09/20/24 Yessy Lanier OD [address] [place] [address] Optometry 09/25/24 Justa Lorenzo MD [facility] Rheumatology 06/13/24 Yanelis GEE virtual Psychiatry 02/04/25 Renee GEE [address] [place], [place] Psychology 02/04/25
--- OUTSIDE RECORDS SUMMARY | 2025-06-05 07:52 | XMS_ITS | Encounter Summary ---
Author Organization [employer] Address [address] [place] [address] Care Team Providers Care Eye Specialist Name Role Phone Celina Mirza MD Primary Care Provider [phone] Shannan Craft Unavailable [phone] Yessy Lanier OD Unavailable [phone] Reason for Visit * Reason Comments Med Refill Encounter Details Date Type Department Care Team ([facility] st Contact Info) Description 06/13/2023 Refill [facility] [address] [place], [place] [phone] Cynthia Nowak MD [address] [place], [place] [phone] Fibromyalgia Social History Tobacco Use Types Packs/Day [...] Upcoming Encounters Date Type Department Care Team ([facility] st Contact Info) Description 08/23/2025 1:00 PM EST Office Visit [facility] OPTOMETRY [address] [place] [phone] Yessy Lanier OD [address] [place] [address] documented as of this encounter Visit Diagnoses Diagnosis Fibromyalgia Unspecified myalgia and myositis documented in this encounter Care Teams Eye Specialist Relationship Specialty Start Date End Date Celina Mirza MD [address] [place] [phone] PCP - General Family Medicine 07/25/18 Shannan Craft [address] [place] [phone] Sleep Medicine 09/20/24 Yessy Lanier OD [address] [place] [phone] Optometry 09/25/24 Justa Lorenzo MD [facility] Rheumatology 06/13/24 Yanelis GEE virtual Psychiatry 02/04/25 Renee GEE [address] [place], [place] Psychology 02/04/25 documented as of this encounter
--- OUTSIDE RECORDS SUMMARY | 2025-06-05 07:52 | XMS_ITS | Encounter Summary ---
Author Organization [employer] Address 75 [facility] 7t [place] [address] Care Team Providers Care Air Brake Man Name Role Phone Celina Mirza MD Primary Care Provider +1- [phone] Shannan Craft Unavailable Yannick, Yessy OD Unavailable Reason for Visit * Reason Comments Med Change Request Encounter Details Date Type Department Care Team (Late Contact Info) Description 03/31/2023 Refill [facility] MEDICINE 230 [place], [place] [phone] Celina Mirza MD 230 [place], [place] [phone] Mood disorder (CMS/HCC) Social History Tobacco Use [...] Upcoming Encounters Date Type Department Care Team ([facility] Contact Info) Description 08/23/2025 1:00 PM EST Office Visit [facility] OPTOMETRY [address] [place] [address] Yessy Lanier OD 230 [place] [address] documented as of this encounter Visit Diagnoses Diagnosis Mood disorder (CMS/HCC) Unspecified episodic mood disorder documented in this encounter Care Teams Air Brake Man Relationship Specialty Start Date End Date Celina Mirza MD 230 [place] [address] PCP - General Family Medicine 07/25/18 Shannan Craft [address] [phone] Sleep Medicine 09/20/24 Yessy Lanier OD [address] [place] [address] Optometry 09/25/24 Justa Lorenzo MD [facility] Rheumatology 06/13/24 Yanelis GEE virtual Psychiatry 02/04/25 Renee GEE 230 [place], [place] Psychology 02/04/25 documented as of this encounter
--- OUTSIDE RECORDS SUMMARY | 2025-06-05 07:52 | XMS_ITS | Encounter Summary ---
Author Organization [employer] Address 75 [facility] 7t [place] [address] Care Team Providers Care Clipper Automatic Name Role Phone Celina Mirza MD Primary Care Provider +1- [phone] Shannan Craft Unavailable [phone] Yessy Lanier OD Unavailable [phone] Encounter Details Date Type Department Care Team (Late Contact Info) Description 04/25/2023 Abstract [facility] MEDICINE 230 [place] [address] Celina Mirza MD 230 [place] [address] Preventative health care Social History Tobacco Use [...] Department Care Team (Late Contact Info) Description 08/23/2025 1:00 PM EST Office Visit [facility] OPTOMETRY [address] [place], [place] [phone] Yessy Lanier, OD 230 [place] [address] documented as of this encounter Visit Diagnoses Diagnosis Preventative health care Routine general medical examination at a health care facility documented in this encounter Care Teams Clipper Automatic Relationship Specialty Start Date End Date Celina Mirza MD 230 [place] [address] PCP - General Family Medicine 07/25/18 Shannan Craft [address] [phone] Sleep Medicine 09/20/24 Yessy Lanier OD [address] [place] [address] Optometry 09/25/24 Justa Lorenzo MD [facility] Rheumatology 06/13/24 Yanelis GEE virtual Psychiatry 02/04/25 Renee GEE 230 [place], [place] Psychology 02/04/25 documented as of this encounter
--- OUTSIDE RECORDS SUMMARY | 2025-06-05 07:52 | XMS_ITS | Encounter Summary ---
Author Organization [employer] Address [address] [facility] [address] 7t [place] [address] Care Team Providers Care Warrant Clerk Name Role Phone Celina Mirza MD Primary Care Provider +1- [phone] Shannan Craft Unavailable Yessy Lanier OD Unavailable [phone] Reason for Visit * Reason Onset Date Comments Med Refill 06/13/2023 Encounter Details Date Type Department Care Team (Late st Contact Info) Description 06/13/2023 Refill [facility] MEDICINE [address] [place], [place] [phone] Cynthia Nowak MD 230 [place], [place] [phone] Influenza-like symptoms Social History Tobacco Use Types [...] Upcoming Encounters Date Type Department Care Team ([facility] st Contact Info) Description 08/23/2025 1:00 PM EST Office Visit [facility] OPTOMETRY [address] [place] [address] Yessy Lanier, VIOLA 230 [place] [address] documented as of this encounter Visit Diagnoses Diagnosis Influenza-like symptoms Other general symptoms documented in this encounter Care Teams Warrant Clerk Relationship Specialty Start Date End Date Celina Mirza MD 230 [place] [address] PCP - General Family Medicine 07/25/18 Shannan Craft [address] [place] [phone] Sleep Medicine 09/20/24 Yessy Lanier, VIOLA [address] [place] [address] Optometry 09/25/24 Justa Lorenzo MD [facility] Rheumatology 06/13/24 Yanelis GEE virtual Psychiatry 02/04/25 Renee GEE 230 [place], [place] Psychology 02/04/25 documented as of this encounter
--- OUTSIDE RECORDS SUMMARY | 2025-06-05 07:52 | XMS_ITS | Encounter Summary ---
Author Organization [employer] Address [address] [facility] [address] 7t [place] [address] Care Team Providers Care Elementary School Librarian Name Role Phone Celina Mirza MD Primary Care Provider +1- [phone] Shannan Craft Unavailable Yannick, Yessy OD Unavailable [phone] Reason for Visit * Reason Comments Med Refill Encounter Details Date Type Department Care Team (Late st Contact Info) Description 10/23/2024 Refill [facility] MEDICINE 230 [place], [place] [phone] Celina Mirza MD 230 [place], [place] [phone] Diabetes mellitus without complication ([facility]) Social History Tobacco Use Types Packs/Day Years [...] Description 08/23/2025 1:00 PM EST Office Visit [facility] OPTOMETRY 267 [place] [address] Yessy Lanier, VIOLA 230 [place] [address] documented as of this encounter Visit Diagnoses Diagnosis Diabetes mellitus without complication (HCC) Type II or unspecified type diabetes mellitus without mention of complication, not stated as uncontrolled documented in this encounter Additional Health Concerns Assessment Noted Time PHQ-9 Depression Total Score: 16 024 11:41 AM EDT documented as of this encounter Care Teams Elementary School Librarian Relationship Specialty Start Date End Date Celina Mirza MD 230 [place] [address] PCP - General Family Medicine 07/25/18 Shannan Craft [address] [address] Sleep Medicine 09/20/24 Yessy Lanier OD [address] [place] [address] Optometry 09/25/24 Justa Lorenzo MD [facility] Rheumatology 06/13/24 Yanelis GEE virtual Psychiatry 02/04/25 Renee GEE 230 [place], [place] Psychology 02/04/25 documented as of this encounter
--- OUTSIDE RECORDS SUMMARY | 2025-06-05 07:52 | XMS_ITS | Encounter Summary ---
Author Organization [employer] Address [address] [facility] [address] 7t [place] [address] Care Team Providers Care Waste Machine Operator Name Role Phone Celina Mirza MD Primary Care Provider +1- [phone] Shannan Craft Unavailable Yannick, Yessy OD Unavailable Reason for Visit * Reason Comments Med Refill Encounter Details Date Type Department Care Team (Late st Contact Info) Description 09/13/2024 Refill [facility] MEDICINE 230 [place], [place] [phone] Celina Mirza MD 230 [place], [place] [phone] Gastroesophageal reflux disease, unspecified whether esophagitis present [...] Description 08/23/2025 1:00 PM EST Office Visit [facility] OPTOMETRY 267 [place] [address] Yannick, Yessy, OD 230 [place] [address] documented as of this encounter Visit Diagnoses Diagnosis Gastroesophageal reflux disease, unspecified whether esophagitis present documented in this encounter Additional Health Concerns Assessment Noted Time PHQ-9 Depression Total Score: 16 024 11:41 AM EDT documented as of this encounter Care Teams Waste Machine Operator Relationship Specialty Start Date End Date Celina Mirza MD 230 [place] [address] PCP - General Family Medicine 07/25/18 Shannan Craft [address] [address] Sleep Medicine 09/20/24 Yessy Lanier OD [address] [place] [address] Optometry 09/25/24 Justa Lorenzo MD [facility] Rheumatology 06/13/24 Yanelis GEE virtual Psychiatry 02/04/25 Renee GEE 230 [place], [place] Psychology 02/04/25 documented as of this encounter
--- OUTSIDE RECORDS SUMMARY | 2025-06-05 07:52 | XMS_ITS | Encounter Summary ---
Author Organization [employer] Address [address] [facility] [address] 7t [place] [address] Care Team Providers Care Printed Products Assembler Name Role Phone Celina Mirza MD Primary Care Provider +- [phone] Shannan Craft Unavailable [phone] Yessy Lanier OD Unavailable [phone] Reason for Visit * Reason Comments Med Refill Encounter Details Date Type Department Care Team (Late st Contact Info) Description 05/16/2023 Refill [facility] 230 [place] [address] Haylee Parker MD 230 [place] [address] Acute right ankle pain; Acute left ankle [...] Description 08/23/2025 1:00 PM EST Office Visit [facility] OPTOMETRY [address] [place] [address] Yessy Lanier OD 230 [place] [address] documented as of this encounter Visit Diagnoses Diagnosis Acute right ankle pain Acute left ankle pain documented in this encounter Care Teams Printed Products Assembler Relationship Specialty Start Date End Date Celina Mirza MD 230 [place] [address] PCP - General Family Medicine 07/25/18 Shannan Craft [address] [place] [phone] Sleep Medicine 09/20/24 Yessy Lanier OD [address] [place] [address] Optometry 09/25/24 Justa Lorenzo MD [facility] Rheumatology 06/13/24 Yanelis GEE virtual Psychiatry 02/04/25 Renee GEE 230 [place], [place] Psychology 02/04/25 documented as of this encounter
--- OUTSIDE RECORDS SUMMARY | 2025-06-05 07:52 | XMS_ITS | Encounter Summary ---
Author Organization [employer] Address [address] [facility] [address] 7t [place] [address] Care Team Providers Care Agricultural Commodities Inspector Name Role Phone Celina Mirza MD Primary Care Provider +1- [phone] Shannan Craft Unavailable [phone] Yannick, Yessy OD Unavailable [phone] Reason for Visit * Reason Onset Date Comments Medication Question 06/07/2023 Encounter Details Date Type Department Care Team (Late st Contact Info) Description 06/07/2023 Telephone [facility] MEDICINE 230 [place], [place] [phone] Celina Mirza MD 230 [place], [place] [phone] Medication Question Social History Tobacco Use Types [...] pen-injector states the pharmacy would not fill designer/writer did call pharmacy and it is currently on back order. Also patient requires a medication plan on how to take it going forward. documented in this encounter Plan of Treatment Upcoming Encounters Date Type Department Care Team (Late st Contact Info) Description 08/23/2025 1:00 PM EST Office Visit [facility] OPTOMETRY 267 [place] [address] Yannick, Yessy, OD 230 [place] [address] documented as of this encounter Visit Diagnoses Not on filedocumented in this encounter Care Teams Agricultural Commodities Inspector Relationship Specialty Start Date End Date Celina Mirza MD 230 [place] [address] PCP - General Family Medicine 07/25/18 Shannan Craft [facility] [address] [address] Sleep Medicine 09/20/24 Yessy Lanier OD [address] [place] [address] Optometry 09/25/24 Justa Lorenzo MD [facility] Rheumatology 06/13/24 Yanelis GEE virtual Psychiatry 02/04/25 Renee GEE [address] [place] [address] Psychology 02/04/25 documented as of this encounter
--- OUTSIDE RECORDS SUMMARY | 2025-06-05 07:52 | XMS_ITS | Encounter Summary ---
Author Organization [employer] Address [address] [facility] [address] 7t [place] [address] Care Team Providers Care Brokerage Coordinator Name Role Phone Celina Mirza MD Primary Care Provider +1- [phone] Shannan Craft Unavailable [phone] Yannick, Yessy OD Unavailable Reason for Visit * Reason Onset Date Comments Med Refill 06/14/2023 Encounter Details Date Type Department Care Team (Late st Contact Info) Description 06/14/2023 Telephone [facility] MEDICINE 230 [place], [place] [phone] Celina Mirza MD 230 [place], [place] [phone] Med Refill Social History Tobacco Use Types [...] to be sent to [facility]/pharmacy #[id number] [place] [address] documented in this encounter Plan of Treatment Upcoming Encounters Date Type Department Care Team (Late st Contact Info) Description 08/23/2025 1:00 PM EST Office Visit [facility] OPTOMETRY 267 [place], [place] [phone] Yannick, Yessy, OD 230 [place] [address] documented as of this encounter Visit Diagnoses Not on filedocumented in this encounter Care Teams Brokerage Coordinator Relationship Specialty Start Date End Date Celina Mirza MD 230 [place], [place] [phone] PCP - General Family Medicine 07/25/18 Shannan Craft [address] [address] Sleep Medicine 09/20/24 Yessy Lanier OD [address] [place] [address] Optometry 09/25/24 Justa Lorenzo MD [facility] Rheumatology 06/13/24 Yanelis GEE virtual Psychiatry 02/04/25 Renee GEE 230 [place], [place] Psychology 02/04/25 documented as of this encounter
--- OUTSIDE RECORDS SUMMARY | 2025-06-05 07:52 | XMS_ITS | Encounter Summary ---
Author Organization [employer] Address 75 [facility] 7t [place] [address] Care Team Providers Care Supervisor Beehive Kiln Name Role Phone Celina Mirza MD Primary Care Provider +- [phone] Shannan Craft Unavailable [phone] Yessy Lanier OD Unavailable Reason for Visit * Reason Comments Med Refill Encounter Details Date Type Department Care Team (Late Contact Info) Description 04/22/2023 Refill [facility] 230 [place] [address] Haylee Parker MD 230 [place] [address] Acute right ankle pain; Acute left ankle [...] Description 08/23/2025 1:00 PM EST Office Visit [facility] OPTOMETRY 267 [place] [address] Yessy Lanier, OD 230 [place] [address] documented as of this encounter Visit Diagnoses Diagnosis Acute right ankle pain Acute left ankle pain documented in this encounter Care Teams Supervisor Beehive Kiln Relationship Specialty Start Date End Date Celina Mirza MD 230 [place] [address] PCP - General Family Medicine 07/25/18 Shannan Craft [address] [phone] Sleep Medicine 09/20/24 Yessy Lanier, OD 267 [place] [address] Optometry 09/25/24 Justa Lorenzo MD [facility] Rheumatology 06/13/24 Yanelis GEE virtual Psychiatry 02/04/25 Renee GEE 230 [place], [place] Psychology 02/04/25 documented as of this encounter
--- OUTSIDE RECORDS SUMMARY | 2025-06-05 07:52 | XMS_ITS | Encounter Summary ---
Author Organization [employer] Address 75 [facility] 7t [place] [address] Care Team Providers Care Donkey Ride Operator Name Role Phone Celina Mirza MD Primary Care Provider +1- [phone] Shannan Craft Unavailable Yessy Lanier OD Unavailable Encounter Details Date Type Department Care Team (Late Contact Info) Description 04/25/2023 Orders Only [facility] MEDICINE 230 [place] [address] Celina Mirza MD 230 [place], [place] [phone] Social History Tobacco Use Types Packs/Day Years [...] Description 08/23/2025 1:00 PM EST Office Visit [facility] OPTOMETRY [address] [place] [address] Yessy Lanier, OD 230 [place] [address] documented as of this encounter Visit Diagnoses Not on filedocumented in this encounter Care Teams Donkey Ride Operator Relationship Specialty Start Date End Date Celina Mirza MD 230 [place] [address] PCP - General Family Medicine 07/25/18 Shannan Craft [address] [place] [phone] Sleep Medicine 09/20/24 Yessy Lanier OD [address] [place] [address] Optometry 09/25/24 Justa Lorenzo MD [facility] Rheumatology 06/13/24 Yanelis GEE virtual Psychiatry 02/04/25 Renee GEE 230 [place], [place] Psychology 02/04/25 documented as of this encounter
--- OUTSIDE RECORDS SUMMARY | 2025-06-05 07:52 | XMS_ITS | Encounter Summary ---
Author Organization [employer] Address [address] [facility] [address] 7t [place] [address] Care Team Providers Care Chef'S Assistant Name Role Phone Celina Mirza MD Primary Care Provider +1- [phone] Shannan Craft Unavailable [phone] Yannick, Yessy OD Unavailable [phone] Reason for Visit * Reason Comments Med Refill Encounter Details Date Type Department Care Team (Late st Contact Info) Description 11/21/2024 Refill [facility] MEDICINE 230 [place], [place] [phone] Celina Mirza MD 230 [place], [place] [phone] Diabetes mellitus without complication ([facility]) Social History Tobacco Use [...] Description 08/23/2025 1:00 PM EST Office Visit [facility] OPTOMETRY 267 [place] [address] Yessy Lanier, VIOLA 230 [place] [address] documented as of this encounter Visit Diagnoses Diagnosis Diabetes mellitus without complication (HCC) Type II or unspecified type diabetes mellitus without mention of complication, not stated as uncontrolled documented in this encounter Additional Health Concerns Assessment Noted Time PHQ-9 Depression Total Score: 16 024 11:41 AM EDT documented as of this encounter Care Teams Chef'S Assistant Relationship Specialty Start Date End Date Ceilna Mirza MD 230 [place] [address] PCP - General Family Medicine 07/25/18 Shannan Craft [address] [address] Sleep Medicine 09/20/24 Yessy Lanier OD [address] [place] [address] Optometry 09/25/24 Justa Lorenzo MD [facility] Rheumatology 06/13/24 Yanelis GEE virtual Psychiatry 02/04/25 Renee GEE 230 [place], [place] Psychology 02/04/25 documented as of this encounter
--- NOTE | 2025-06-05 07:59 | A.OFFVIS_ITS ---
Vital Signs 06/05/25 08:09 Height 5 ft 2 in Weight 223 lb 15.834 oz BMI 41.0 BP 115/62 Blood Pressure Location Lt brachial Position Sitting Pulse 95 Pulse Source Pulse Oximeter Pulse Oximetry (%) 98 Oxygen Delivery Method Room Air Intake Visit Reasons: f/u fibromyalgia Intake Note: Patient presents for Fibromyalgia follow up. Allergies No Known Allergies (No Known Allergies*) Allergy (Verified 06/05/25 08:04) Medication List - Last Reconciled 06/05/25 by Justa Lorenzo MD acetaminophen 500 mg PO Q6H PRN atorvastatin 20 mg PO DAILY bupropion HCl XL 150 mg PO QAM bupropion HCl XL 300 mg PO QAM buspirone 15 mg PO BID celecoxib (Celebrex) 200 mg PO BID cholecalciferol (vitamin D3) 25 mcg PO DAILY cyclobenzaprine 10 mg PO BEDTIME metformin 500 mg PO DAILY milnacipran 50 mg (2 x 25 mg) PO BID 90 days omeprazole 20 mg PO DAILY pregabalin 225 mg PO BID 90 days propranolol 10 - 20 mg PO DAILY PRN semaglutide (Ozempic) 2 mg subcut QWEEK topiramate 50 mg PO BEDTIME HPI Comments Details: Patient is a 35-year-old female with diabetes, hypertension, hyperlipidemia, obesity on Ozempic and fibromyalgia here today for follow up Interval History: Patient last seen 12/03/24 with me. - Not on DMARDs - On pregabalin 225ng bid, celebrex 200mg bid, milnacipran 50mg bid - Having issues taking her medications as prescribed. Only started taking her medication about 1 month ago. - Continues to have widespreas pain but noting that she does not feel like a truck has run her over anymore - Has lost weight since the last visit: 250 -- > 215 Today - On pregabalin 225ng bid, celebrex 200mg bid, milnacipran 50mg bid - Concerned that there may be additional diagnoses that are being missed - Has mom on the phone, who I see as a patient for Shan Cohen - Consistent with her medications but continues to have widespread pain - Tearful when talking about not being able to hug her children due to her widespread pain - Had to move in with her parents Rheumatologic History: Fibromyalgia Initial History: Patient was initially seen back in 2020 for evaluation of polyarthralgias in the setting of a positive double-stranded DNA. Exam at that time was consistent with fibromyalgia. Patient notes that she has actually been diagnosed with fibromyalgia since 2007. Since then she has been maintained on a cocktail of pregabalin and duloxetine. However over the years she has noticed worsening of her pain to the point where she feels like she can not take care of her 3 young children. And she is here today for management. Denies rashes, photosensitivity, alopecia, oral/nasal ulcers, sicca symptoms, lymphadenopathy, chest pain/shortness of breath, inflammatory type joint pain, foamy urine, lower extremity edema, muscle weakness, Raynaud's Also denies history of seizure, CVA, psychosis, history of kidney problems, history of cytopenias, history of VTE including PE or DVTs OB History: No history of recurrent miscarriages Current Rheumatology Medication(s): Celebrex 200 mg b.i.d. Milnacipran 50 mg twice a day Pregabalin 225 mg twice a day PFSH Social History Household Members: Family Housing: House Alcohol intake: never Patient Tobacco Use Status: Never used Tobacco e-Cigarette/Vaping Use: Never Used Review of Systems Narrative Review of Systems Constitutional: Denies fever, chills, weight loss ENT: Denies vision changes, eye pain or eye redness, dental caries, dry mouth GI: Denies nausea, vomiting, diarrhea, abdominal pain, change in BM Pulm: Denies SOB, ARANA, hemoptysis, wheezing Cards: Denies chest pain, palpitations Skin: Denies Raynaud's, rash, nail changes, photosensitivity, DOG BREEDER: Denies headaches, weakness, paresthesias, recurrent falls MSK: as per HPI All other systems reviewed and are unremarkable except noted above Physical Exam Exam Exam: Vital signs reviewed Physical Examination CONSTITUITIONAL Patient alert and cooperative. Well appearing and in no apparent painful distress MSK Hands * Right Hand: Able to make a fist. No swelling or tenderness to palpation of t he MCPs, PIPs or DIPs. No deformities noted. * Left Hand: Able to make a fist. No swelling or tenderness to palpation of the MCPs, PIPs or DIPs. No deformities noted. Wrists * Right Wrist: Full ROM to flexion and extension. No swelling or TTP * Left Wrist: Full ROM to flexion and extension. No swelling or TTP Elbows * Right Elbow: No swelling or TTP. No TTP of the medial epicondyle. No TTP of th e lateral epicondyle * Left Elbow: No swelling or TTP. No TTP of the medial epicondyle. No TTP of the lateral epicondyle Shoulders * Right shoulder: No swelling noted. No TTP of the AC joint. No TTP of the subacromial bursa. No TTP of the posterior shoulder * Left shoulder: No swelling noted. No TTP of the AC joint. No TTP of the subacromial bursa. No TTP of the posterior shoulder Hip bursa: Tenderness to palpation bilaterally Knees * Right knee: No swelling noted. No TTP of the knee joint line. TTP of pes anserine bursa * Left knee: No swelling noted. No TTP of the knee joint line. TTP of pes anserine bursa. Ankles * Right ankle: Good ankle dorsiflexion and plantar flexion. No swelling. No TTP of the ankle joint * Left ankle: Good ankle dorsiflexion and plantar flexion. No swelling. No TTP of the ankle joint Feet * Right foot: Negative squeeze test * Left foot: Negative squeeze test Tender points? * Tenderness to palpation of the bilateral trapezius, supraspinatus, anterior costochondral junctions, bilateral suboccipital muscle insertions * Tenderness to palpation of the forearm muscles bilaterally SKIN No rashes Vital Signs: Last Vital Signs Pulse 95 06/05/25 08:09 BP 115/62 06/05/25 08:09 Pulse Ox 98 06/05/25 08:09 Oxygen Delivery Method Room Air 06/05/25 08:09 BMI result Body Mass Index 41.0 Results Reviewed Results Reviewed: Laboratory Tests 11/27/24 03/27/25 08:43 11:05 WBC 8.2 RBC 4.25 Hgb 11.0 L Hct 34.7 L Plt Count 366 Sodium 140 Potassium 4.1 Chloride 111 H Carbon Dioxide 20 L BUN 19 H Creatinine 1.21 AST 22 ALT 11 Assessment & Plan Assessment & Plan (1) Fibromyalgia: Code(s): M79.7 - Fibromyalgia Category: Medical Plan: #Fibromyalgia Patient is a 35-year-old female with fibromyalgia here today for follow up. More consistent with medications Does not feel that they have been efficacious Had a long discussion with patient and her mom (who was on the phone) about her diagnosis I explained that her exam, XRs and blood work do not support a diagnosis of lupus or any other CTD I also explained the diagnosis of fibromyalgia Plan - Pregabalin to 225 mg b.i.d. - Celebrex 200 mg b.i.d. - Milnacipran 50 mg b.i.d. - Naltrexone 4.5mg nightly - RTC 6 months Plan I spent 40 minutes reviewing the record and labs, seeing the patient, discussing the treatment plan, answering questions, explaining the labs and diagnosis to patient and her mom on the phone, and documenting in the medical record Medications: New naltrexone 4.5 mg PO .nightly 90 caps 1RF M79.7 - Fibromyalgia Coding Level of Care Code Est Pt Level 5 (95193) Diagnoses Fibromyalgia M79.7
[2025-06-05 08:09] VITALS: BP 115/62; PULSE 95; O2SAT 98; BMI 41.0
== END 2025-06-05 08:49 | disposition home or self-care (01) ==
LOC: HO.RHES 07:48
PROVIDERS: PCP Family Medicine; Visit Provider Student in an Organized Health Care Education/Training Program
DX: M79.7 Fibromyalgia (principal)
CPT/HCPCS: 99215

== ENCOUNTER → 2025-06-05 07:47 | Outpatient (BNVA) | payer MEDICAID, SELFPAY | PROVIDERS: PCP Family Medicine; Visit Provider Student in an Organized Health Care Education/Training Program | DX: M79.7 Fibromyalgia (principal) | CPT/HCPCS: 99212 ==